=== PATIENT | female | born 1935 | race Caucasian/White ===

== ENCOUNTER 2017-03-29 15:05 | Emergency (ER) | payer MEDICARE, OTHER ==
--- NOTE | 2017-03-29 16:05 | ER Document Report ---
ED Fall - General Chief Complaint: Fall Injury Stated Complaint: FALL/BACK PAIN Time Seen by Provider: 03/29/17 15:52 Mode of Arrival: Wheelchair Information source: Patient TRAVEL OUTSIDE OF THE [place] IN LAST 30 DAYS: No - HPI Patient complains to provider of: fall Occurred: Other - pt fell 2 days ago and was seen at [place] [facility] for rib fx' s and stable vertebral compression fractures. Is here to get the name of a" back doctor" who will operate on her back - Related data Allergies/Adverse Reactions: No Known Allergies Allergy (Unverified 03/29/17 15:08) Past Medical History - Social History Smoking Status: Never Smoker Cigarette use (# per day): No Chew tobacco use (# tins/day): No Smoking Education Provided: No Family History: Reviewed & Not Pertinent - Past Medical History Cardiac Medical History: Reports: Hx Coronary Artery Disease, Hx Hypercholesterolemia, Hx Peripheral Vascular Disease Denies: Hx Heart Attack, Hx Hypertension Pulmonary Medical History: Denies: Hx Asthma, Hx Bronchitis, Hx COPD, Hx Pneumonia, Hx Tuberculosis Neurological Medical History: Denies: Hx Cerebrovascular Accident, Hx Seizures Renal/ Medical History: Reports: Hx Kidney Stones. Denies: Hx Peritoneal Dialysis Musculoskeltal Medical History: Denies Hx Arthritis Psychiatric Medical History: Reports: Hx Depression Past Surgical History: Reports: Hx Appendectomy, Hx Cardiac Catheterization - stents, Hx Cardiac Surgery - stent, Hx Cholecystectomy, Hx Coronary Stent, Hx Herniorrhaphy - Umbilical hernia, Hx Hysterectomy, Hx Oral Surgery, Hx Orthopedic Surgery - L1 vertebroplasty, Hx Umbilical Hernia, Hx Vascular Surgery - Aortobiiliac iliac stent within an abdominal aortic aneurysm - Immunizations Immunizations up to date: Yes Hx Diphtheria, Pertussis, Tetanus Vaccination: Yes Hx Pneumococcal Vaccination: 03/16/03 Review of Systems - Review of Systems Constitutional: No symptoms reported EENT: No symptoms reported Cardiovascular: No symptoms reported Respiratory: No symptoms reported Gastrointestinal: No symptoms reported Musculoskeletal: See HPI, Back pain Physical Exam - Vital signs Vitals: Temp Pulse Resp BP Pulse Ox 97.9 F 100 18 147/61 H 98 03/29/17 15:11 03/29/17 15:11 03/29/17 15:11 03/29/17 15:11 03/29/17 15:11 - General General appearance: Appears well In distress: None - Respiratory Respiratory status: No respiratory distress Breath sounds: Normal - Cardiovascular Rhythm: Regular Heart sounds: Normal auscultation - Back Back: Tender - tenderness to lumbar spine diffusely - Extremities Notes: min TTP of R lateral ribs 4-6 Course - Vital Signs Vital signs: Temp Pulse Resp BP Pulse Ox 97.9 F 100 18 147/61 H 98 03/29/17 15:11 03/29/17 15:11 03/29/17 15:11 03/29/17 15:11 03/29/17 15:11 Discharge - Discharge Clinical Impression: Vertebral compression fracture Qualifiers: Encounter type: initial encounter Qualified Code(s): M48.50XA - Collapsed vertebra, not elsewhere classified, site unspecified, initial encounter for fracture Condition: Stable Disposition: HOME, SELF-CARE Additional Instructions: rest, take meds as prescribed, return if worse Prescriptions: Etodolac [Lodine] 200 mg PO BID #14 capsule Referrals: ANILA MONTOYA DO [ACTIVE STAFF] - Follow up as needed
[2017-03-29 16:16] VITALS: BP 137/62
== END 2017-03-29 16:15 | disposition home or self-care (01) ==
LOC: ER 15:05
DX: M48.50XA Collapsed vertebra, not elsewhere classified, site unspecified, initial encounter for fracture (principal); M54.9 Dorsalgia, unspecified; W19.XXXA Unspecified fall, initial encounter; I25.10 Atherosclerotic heart disease of native coronary artery without angina pectoris; E78.00 Pure hypercholesterolemia, unspecified; Z87.442 Personal history of urinary calculi; Z90.49 Acquired absence of other specified parts of digestive tract
CPT/HCPCS: 99283

== ENCOUNTER 2017-04-04 09:58 | Emergency (ER) | payer MEDICARE, OTHER ==
[2017-04-04 10:05] VITALS: BP 150/65
--- NOTE | 2017-04-04 10:54 | ER Document Report ---
HPI - HPI Patient complains to provider of: low back pain Onset: Other - months Onset/Duration: Persistent Pain Level: 5 Context: 81 yo female with chronic low back pain seeking something for pain, seen 03-25 and 03-27 at [facility] and the percocet helped. Knows that she has compression fx and had 3 rib fx after fall 3 months ago. No rn mds coordinator "fired" dr. spivey. No new symptoms. No radiculopathy. Paperwork from [facility]: stable non displaced T11 wedge compression fx, stable non displaced L4 wedge compression fx , multiple right rib fx (3-6) non displaced. Associated Symptoms: None Exacerbated by: Denies Relieved by: Other - percocet - ROS ROS below otherwise negative: Yes Systems Reviewed and Negative: Yes All other systems reviewed and negative - CONSTITUTIONAL Constitutional: DENIES: Fever, Chills - REPRODUCTIVE Reproductive: DENIES: : Past Medical History - General Information source: Patient - Social History Smoking Status: Never Smoker Chew tobacco use (# tins/day): No Frequency of alcohol use: None Drug Abuse: None Lives with: Alone Family History: Reviewed & Not Pertinent Patient has suicidal ideation: No Patient has homicidal ideation: No - Past Medical History Cardiac Medical History: Reports: Hx Coronary Artery Disease, Hx Hypercholesterolemia, Hx Peripheral Vascular Disease Renal/ Medical History: Reports: Hx Kidney Stones. Denies: Hx Peritoneal Dialysis Psychiatric Medical History: Reports: Hx Depression Past Surgical History: Reports: Hx Appendectomy, Hx Cardiac Catheterization - stents, Hx Cardiac Surgery - stent, Hx Cholecystectomy, Hx Coronary Stent, Hx Herniorrhaphy - Umbilical hernia, Hx Hysterectomy, Hx Oral Surgery, Hx Orthopedic Surgery - L1 vertebroplasty, Hx Umbilical Hernia, Hx Vascular Surgery - Aortobiiliac iliac stent within an abdominal aortic aneurysm - Immunizations Immunizations up to date: Yes Hx Diphtheria, Pertussis, Tetanus Vaccination: Yes Hx Pneumococcal Vaccination: 03/16/03 Vertical Provider Document - CONSTITUTIONAL Agree With Documented VS: Yes Exam Limitations: No Limitations General Appearance: No Apparent Distress - INFECTION CONTROL TRAVEL OUTSIDE OF THE [place] IN LAST 30 DAYS: No - HEENT HEENT: Normocephalic - NECK Neck: Supple - RESPIRATORY Respiratory: Breath Sounds Normal, No Respiratory Distress O2 Sat by Pulse Oximetry: 98 - CARDIOVASCULAR Cardiovascular: Regular Rate, Regular Rhythm - GI/ABDOMEN Gastrointestinal: Abdomen Soft, Abdomen Non-Tender - BACK Back: Normal Inspection - MUSCULOSKELETAL/EXTREMETIES Musculoskeletal/Extremeties: MAEW, FROM, Non-Tender - NEURO Level of Consciousness: Awake, Alert, Appropriate Motor/Sensory: No Motor Deficit, No Sensory Deficit - DERM Integumentary: Warm, Dry, No Rash Course - Vital Signs Vital signs: Temp Pulse Resp BP Pulse Ox 97.5 F 106 H 14 150/65 H 98 04/04/17 10:04 04/04/17 10:04 04/04/17 10:04 04/04/17 10:04 04/04/17 10:04 Discharge - Discharge Clinical Impression: Chronic low back pain Qualifiers: Back pain laterality: midline Sciatica presence: without sciatica Qualified Code(s): M54.5 - Low back pain Condition: Good Disposition: HOME, SELF-CARE Instructions: Low Back Pain ([facility]), Oral Narcotic Medication ([facility]), Warm Packs ( [facility]) Additional Instructions: call for appt back surgeon listed below Dr. Britton [facility] [address] [place] [address] [phone] pain management doctor Rola pain management to er any worsening of your symptoms Prescriptions: Oxycodone HCl/Acetaminophen [Percocet 5-325 mg Tablet] 11 tab PO ASDIR PRN #15 tablet PRN Reason: Referrals: JENISE FLETCHER MD [ACTIVE STAFF] - 04/06/17 BRITTON GIANES MD [NO LOCAL MD] - 04/06/17
== END 2017-04-04 11:20 | disposition home or self-care (01) ==
LOC: ER 09:58
DX: M54.5 Low back pain (principal); Z79.899 Other long term (current) drug therapy
CPT/HCPCS: 99283

== ENCOUNTER 2017-04-11 10:00 | Emergency (ER) | payer MEDICARE, OTHER ==
--- NOTE | 2017-04-11 10:25 | ER Document Report ---
ED Medical Screen (RME) - General Chief Complaint: Back Pain Stated Complaint: BACK PAIN Time Seen by Provider: 04/11/17 10:19 Mode of Arrival: Ambulatory Information source: Patient Notes: 81-year-old female presents with complaints of right breast pain flank pain patient noted to have extensive falls with fractures from previous notes I have greeted and performed a rapid initial assessment of this patient. A comprehensive ED assessment and evaluation of the patient, analysis of test results and completion of the medical decision making process will be conducted by additional ED providers. PHYSICAL EXAMINATION: GENERAL: Well-appearing, well-nourished and in no acute distress. HEAD: Atraumatic, normocephalic. EYES: Pupils equal round extraocular movements intact, conjunctiva are normal. ENT: Nares patent NECK: Normal range of motion LUNGS: No respiratory distress Musculoskeletal: Normal range of motion NEUROLOGICAL: Normal speech, normal gait. PSYCH: Normal mood, normal affect. SKIN: Warm, Dry, normal turgor, no rashes or lesions noted. TRAVEL OUTSIDE OF THE [place] IN LAST 30 DAYS: No - Related Data Allergies/Adverse Reactions: No Known Allergies Allergy (Verified 04/11/17 10:01) Past Medical History - Past Medical History Cardiac Medical History: Reports: Hx Coronary Artery Disease, Hx Hypercholesterolemia, Hx Peripheral Vascular Disease Denies: Hx Heart Attack, Hx Hypertension Pulmonary Medical History: Denies: Hx Asthma, Hx Bronchitis, Hx COPD, Hx Pneumonia, Hx Tuberculosis Neurological Medical History: Denies: Hx Cerebrovascular Accident, Hx Seizures Renal/ Medical History: Reports: Hx Kidney Stones. Denies: Hx Peritoneal Dialysis Musculoskeltal Medical History: Denies Hx Arthritis Psychiatric Medical History: Reports: Hx Depression Past Surgical History: Reports: Hx Appendectomy, Hx Cardiac Catheterization - stents, Hx Cardiac Surgery - stent, Hx Cholecystectomy, Hx Coronary Stent, Hx Herniorrhaphy - Umbilical hernia, Hx Hysterectomy, Hx Oral Surgery, Hx Orthopedic Surgery - L1 vertebroplasty, Hx Umbilical Hernia, Hx Vascular Surgery - Aortobiiliac iliac stent within an abdominal aortic aneurysm - Immunizations Immunizations up to date: Yes Hx Diphtheria, Pertussis, Tetanus Vaccination: Yes
[2017-04-11 10:49] VITALS: BP 160/74
[2017-04-11] MEDS ORDERED: LIDOCAINE 5% (700 MG) TRANSDERMAL ADH..PATCH TP ONE (10:55)
--- NOTE | 2017-04-11 10:55 | ER Document Report ---
HPI - HPI Pain Level: 5 Notes: Patient is an 81-year-old female with a history of chronic back pain 3 years with a wedge compression fracture, right rib fractures 3 months presents to the ED complaining of continued pain and wants to see yet another specialist to have surgery on her back. Patient states that she contacted all the other referrals that she was given at [facility], local orthopedics, and a neurosurgeon who stated they will not perform surgery on her back. Patient states that she fired her primary care provider Dr. Rendon due to him not telling her that she had back issues and not referring her to a specialist for surgery. Patient was receiving numerous amounts of narcotics since the start of her back pain. Patient states that she needs more pain medications and another referral to get back surgery performed. She has no other concerns or complaints. She denies any injections or procedures to her lower back. She denies any drug allergies. Denies any IV drug use. Denies any headache, fever, head injury, neck pain, URI, sore throat, chest pain, palpitations, syncope, cough, shortness of breath , wheeze, dyspnea, abdominal pain, nausea/vomiting/diarrhea, urinary retention, dysuria, hematuria, loss of control of bowel or bladder, numbness/tingling, saddle anesthesia, muscle paralysis/weakness, or rash. - ROS Systems Reviewed and Negative: Yes All other systems reviewed and negative - REPRODUCTIVE Reproductive: DENIES: : Past Medical History - General Information source: Patient - Social History Smoking Status: Never Smoker Family History: Reviewed & Not Pertinent - Past Medical History Cardiac Medical History: Reports: Hx Coronary Artery Disease, Hx Hypercholesterolemia, Hx Peripheral Vascular Disease Denies: Hx Heart Attack, Hx Hypertension Pulmonary Medical History: Denies: Hx Asthma, Hx Bronchitis, Hx COPD, Hx Pneumonia, Hx Tuberculosis Neurological Medical History: Denies: Hx Cerebrovascular Accident, Hx Seizures Renal/ Medical History: Reports: Hx Kidney Stones. Denies: Hx Peritoneal Dialysis Musculoskeltal Medical History: Denies Hx Arthritis Psychiatric Medical History: Reports: Hx Depression Past Surgical History: Reports: Hx Appendectomy, Hx Cardiac Catheterization - stents, Hx Cardiac Surgery - stent, Hx Cholecystectomy, Hx Coronary Stent, Hx Herniorrhaphy - Umbilical hernia, Hx Hysterectomy, Hx Oral Surgery, Hx Orthopedic Surgery - L1 vertebroplasty, Hx Umbilical Hernia, Hx Vascular Surgery - Aortobiiliac iliac stent within an abdominal aortic aneurysm - Immunizations Immunizations up to date: Yes Hx Diphtheria, Pertussis, Tetanus Vaccination: Yes Hx Pneumococcal Vaccination: 03/16/03 Vertical Provider Document - CONSTITUTIONAL Agree With Documented VS: Yes Notes: PHYSICAL EXAMINATION: GENERAL: Well-appearing, well-nourished and in no acute distress. Chest: + hypersensitivity to palp of the rt lateral ribs. No ecchymosis, deformity, step-off, erythema, or rash. LUNGS: Breath sounds clear to auscultation bilaterally and equal. No wheezes rales or rhonchi. HEART: Regular rate and rhythm without murmurs, rubs, gallops. ABDOMEN: Soft, nontender, nondistended abdomen. No guarding, no rebound. No masses appreciated. Normal bowel sounds present. No CVA tenderness bilaterally. No pulsatile mass Musculoskeletal: LE's b/l: FROM to passive/active. Strength 5+/5. No deficits noted. No bony tenderness of extremities. Back: FROM to passive/active. Strength 5+/5. No vertebral point tenderness, stepoffs, or deformities. No other bony tenderness, erythema, swelling, or ecchymosis. SLR negative b/l. + hypersensitivity to light touch of the left L- paraspinal mm. Again, no bony tenderness and super hypersensitive to the lightest touch of her back. pt can then lay back on the table quickly in no apparent discomfort. Extremities: No cyanosis, clubbing, or edema b/l. Peripheral pulses 2+. Capillary refill less than 2 seconds. NEUROLOGICAL: Normal speech, normal gait. Normal sensory, motor exams. Reflexes 2+ b/l. PSYCH: Normal mood, normal affect. SKIN: Warm, Dry, normal turgor, no rashes or lesions noted. - INFECTION CONTROL TRAVEL OUTSIDE OF THE [place] IN LAST 30 DAYS: No - RESPIRATORY O2 Sat by Pulse Oximetry: 99 Course - Re-evaluation Re-evalutation: 04/11/17 10:50 Patient is an afebrile, well-hydrated, 81-year-old female who presents to the ED with chronic back and rib pain. Vitals are stable. PE is otherwise unremarkable for any focal neurological deficits. No labs or imaging warranted at this time based on H&P. I have a very strong suspicion that she is having a hypersensitivity side effect of chronic narcotic use. I strongly advise against any narcotics at this time and that the next provider that sees her looks at her NCCSRS as well as this note and considers the risk/benefit. I believe that patient will benefit most from interventional pain management as well as the psych parameters of true pain. Patient has been told by numerous specialists but they will not perform surgery and that her condition does not warrant surgery. Patient has no bony tenderness in her back and is able to move without any difficulties. Low suspicion for any meningitis, fracture, expanding/ruptured AAA, cauda equina syndrome, epidural mass lesion/abscess, herniated disc causing severe spinal stenosis, or other systemic infection at this time. Patient is aware that her condition can change from initial presentation and that she needs monitor symptoms closely for any acute changes. She will be treated today with a Lidoderm patch, Toradol, Solu-Medrol, and sent home with a steroid taper as well as a prescription for Lidoderm patches. A FCE (functional capacity exam) should also be considered to further delineate true pain from psych involvement but needs to be ordered by Physiatry/PCM, etc. Conservative measures otherwise for symptoms. Recheck with your PCM/ establish over the next week. Consider consult with physiatry/orthopedics/ therapy. return to the ED with any worsening/concerning symptoms otherwise as reviewed discharge. Patient is in agreement. Information for Physiatry given to patient. - Vital Signs Vital signs: Temp Pulse Resp BP Pulse Ox 97.6 F 92 20 211/74 H 99 04/11/17 10:05 04/11/17 10:05 04/11/17 10:05 04/11/17 10:05 04/11/17 10:05 Discharge - Discharge Clinical Impression: Rib pain on right side Chronic back pain Qualifiers: Back pain location: low back pain Back pain laterality: right Sciatica presence : without sciatica Qualified Code(s): M54.5 - Low back pain; G89.29 - Other chronic pain; G89.29 - Other chronic pain Condition: Stable Disposition: HOME, SELF-CARE Instructions: Low Back Pain ([facility]) Additional Instructions: You should stay away from narcotic medications (including but not limited to-- vicodin/hydrocodone, oxycodone/percocet, dilaudid/hydromorphone, etc) as this could be worsening your overall health. Consider having a Functional Capacity Exam performed (speak with a specialist more about this) Rest, Ice Tylenol/ibuprofen as needed Light stretches daily Strength exercises as able Moist heat and massage may help F/u with your PCP/establish with PCM in 1 week for a recheck Consider consult(s) with Physiatry/Orthopedics/physical therapy for ongoing/ worsening symptoms Return to the ED with any worsening symptoms and/or development of fever, headache, chest pain, palpitations, syncope, shortness of breath, trouble breathing, abdominal pain, n/v/d, blood in stool/urine, loss of control of bowel /bladder, urinary retention, muscle weakness/paralysis, saddle anesthesia, numbness/tingling, or other worsening symptoms that are concerning to you. Prescriptions: Lidocaine [Lidoderm] 1 each TP DAILY #30 adh..patch Prednisone [Deltasone 10 mg Tablet] 10 mg PO ASDIR PRN #21 tablet PRN Reason: Forms: Elevated Blood Pressure Referrals: ANA LILIA NUNEZ MD [Primary Care Provider] - Follow up in 1 week [facility] [Provider Group] - Follow up as needed [facility] [Provider Group] - Follow up as needed EVANGELINA COLÓN MD [NO LOCAL MD] - Follow up in 1 week
[2017-04-11] MEDS ORDERED: KETOROLAC TROMETHAMINE INJ/PF 30 MG/1 ML SDV IM ONE (10:56)
[2017-04-11] MEDS ORDERED: METHYLPREDNISOLONE INJ 125 MG/2 ML SDV IM ONE (10:56)
== END 2017-04-11 11:20 | disposition home or self-care (01) ==
LOC: ER 10:00
DX: G89.29 Other chronic pain (principal); R07.81 Pleurodynia; M54.5 Low back pain; I25.10 Atherosclerotic heart disease of native coronary artery without angina pectoris
CPT/HCPCS: 99283; 96372; J2930; J1885

== ENCOUNTER 2017-04-24 15:53 | Emergency (ER) | payer MEDICARE, OTHER ==
[2017-04-24 16:03] VITALS: BP 182/63
--- NOTE | 2017-04-24 16:24 | ER Document Report ---
HPI - HPI Patient complains to provider of: low back pain Onset: Other - over 3 months Onset/Duration: Persistent - chronic Quality of pain: Achy, Burning Pain Level: 5 Context: 81 yo female with multiple visits to ER and other providers for chronic lower seth. thoracic back pain. No rash, no sob. No abd pain. No chest pain. Has been told in ER no opiate pain medication. No fever. ] Associated Symptoms: None Exacerbated by: Movement Relieved by: Denies - ROS ROS below otherwise negative: Yes Systems Reviewed and Negative: Yes All other systems reviewed and negative - REPRODUCTIVE Reproductive: DENIES: : Past Medical History - General Information source: Patient - Social History Smoking Status: Never Smoker Frequency of alcohol use: None Drug Abuse: None Lives with: Alone Family History: Reviewed & Not Pertinent - Past Medical History Cardiac Medical History: Reports: Hx Coronary Artery Disease, Hx Hypercholesterolemia, Hx Peripheral Vascular Disease Renal/ Medical History: Reports: Hx Kidney Stones Musculoskeltal Medical History: Reports Hx Arthritis, Reports Other - compression fx Psychiatric Medical History: Reports: Hx Depression Past Surgical History: Reports: Hx Appendectomy, Hx Cardiac Catheterization - stents, Hx Cardiac Surgery - stent, Hx Cholecystectomy, Hx Coronary Stent, Hx Herniorrhaphy - Umbilical hernia, Hx Hysterectomy, Hx Oral Surgery, Hx Orthopedic Surgery - L1 vertebroplasty, Hx Umbilical Hernia, Hx Vascular Surgery - Aortobiiliac iliac stent within an abdominal aortic aneurysm - Immunizations Immunizations up to date: Yes Hx Diphtheria, Pertussis, Tetanus Vaccination: Yes Hx Pneumococcal Vaccination: 03/16/03 Vertical Provider Document - CONSTITUTIONAL Agree With Documented VS: Yes Exam Limitations: No Limitations General Appearance: No Apparent Distress - INFECTION CONTROL TRAVEL OUTSIDE OF THE [place] IN LAST 30 DAYS: No - HEENT HEENT: Normocephalic - NECK Neck: Supple - RESPIRATORY Respiratory: Breath Sounds Normal, No Respiratory Distress O2 Sat by Pulse Oximetry: 98 - CARDIOVASCULAR Cardiovascular: Regular Rate, Regular Rhythm - GI/ABDOMEN Gastrointestinal: Abdomen Soft, Abdomen Non-Tender - BACK Back: Normal Inspection Notes: tender bilateral lower thoracic back paraspinal muscles - MUSCULOSKELETAL/EXTREMETIES Musculoskeletal/Extremeties: MAEW, Tender - see above - NEURO Level of Consciousness: Awake, Alert - impatient Motor/Sensory: No Motor Deficit, No Sensory Deficit - DERM Integumentary: Warm, Dry, No Rash Course - Re-evaluation Re-evalutation: 04/24/17 17:12 pt is refusing a urine sample - Vital Signs Vital signs: Temp Pulse Resp BP Pulse Ox 97.7 F 95 18 182/63 H 98 04/24/17 16:01 04/24/17 16:01 04/24/17 16:01 04/24/17 16:01 04/24/17 16:01 Discharge - Discharge Clinical Impression: chronic bilateral low thoracic back pain Condition: Good Disposition: HOME, SELF-CARE Instructions: Acetaminophen, Chronic Back Pain ([facility]), Low Back Pain ([facility]), Ultram ([facility]), Warm Packs ([facility]) Additional Instructions: warm compress see your doctor for follow up to er if worse we will not prescribe Narcotic pain medication or any more Ultram for you in the ER for this chronic back pain Prescriptions: Tramadol HCl [Ultram 50 mg Tablet] 50 mg PO ASDIR PRN #10 tablet PRN Reason:
[2017-04-24 17:37] LABS: AMORPHOUS SEDIMENT,URINE TRACE /HPF; APPEARANCE,URINE CLEAR; BILIRUBIN,URINE NEGATIVE (NEGATIVE); COLOR,URINE YELLOW; GLUCOSE, URINE NEGATIVE (NEGATIVE); KETONES,URINE NEGATIVE (NEGATIVE); LEUKOCYTE ESTERASE,URINE NEGATIVE (NEGATIVE); NITRITE,URINE NEGATIVE (NEGATIVE); PROTEIN,URINE NEGATIVE (NEGATIVE); URINE SPECIFIC GRAVITY 1.023; UROBILINOGEN,URINE NEGATIVE mg/dL (<2.0)
== END 2017-04-24 17:15 | disposition home or self-care (01) ==
LOC: ER 15:53
DX: G89.29 Other chronic pain (principal); M54.5 Low back pain; M54.6 Pain in thoracic spine; I25.10 Atherosclerotic heart disease of native coronary artery without angina pectoris; Z95.5 Presence of coronary angioplasty implant and graft
CPT/HCPCS: 81001; 87086; 99283

== ENCOUNTER 2017-05-01 09:49 | Emergency (ER) | payer MEDICARE, OTHER ==
[2017-05-01 09:58] VITALS: BP 174/65
--- NOTE | 2017-05-01 10:44 | ER Document Report ---
HPI - HPI Patient complains to provider of: Back pain Onset: Last week Onset/Duration: Gradual Quality of pain: Achy Severity: None Pain Level: Denies Context: 81-year-old female with a history of chronic back pain who has a back surgeon and states she is going to have surgery later this month ran out of her pain medicine and needs a prescription for pain medicine. She denies fever. She denies motor weakness to the lower extremities. She denies urinary retention or urinary incontinence. She denies any numbness to the inner thighs. Associated Symptoms: denies: Weakness Exacerbated by: Movement Relieved by: Remaining still Similar symptoms previously: Yes Recently seen / treated by doctor: Yes Notes: Review of systems: Constitutional: Denies fever, chills. EENT: Denies ear pain, sinus tenderness, throat pain, throat swelling. Cardiovascular: Denies chest pain, palpitations, dyspnea or edema. Respiratory: Denies wheezing, cough, hemoptysis. Abdomen: Denies abdominal pain, nausea, vomiting, diarrhea. Denies BRBPR or melena. Genitourinary: Denies dysuria, pyuria, hematuria, flank pain. Musculoskeletal: See H&P Neurologic: Denies headache, photophobia, neck stiffness, weakness. Denies loss of bowel or bladder function. Denies saddle anesthesia. Skin: Denies rash, lesions. - REPRODUCTIVE Reproductive: DENIES: : Past Medical History - General Information source: Patient - Social History Smoking Status: Never Smoker Cigarette use (# per day): No Chew tobacco use (# tins/day): No Frequency of alcohol use: None Drug Abuse: None Lives with: Alone Family History: Reviewed & Not Pertinent Patient has suicidal ideation: No Patient has homicidal ideation: No - Past Medical History Cardiac Medical History: Reports: Hx Coronary Artery Disease, Hx Hypercholesterolemia, Hx Peripheral Vascular Disease Denies: Hx Heart Attack, Hx Hypertension Pulmonary Medical History: Denies: Hx Asthma, Hx Bronchitis, Hx COPD, Hx Pneumonia, Hx Tuberculosis Neurological Medical History: Denies: Hx Cerebrovascular Accident, Hx Seizures Renal/ Medical History: Reports: Hx Kidney Stones. Denies: Hx Peritoneal Dialysis Musculoskeltal Medical History: Reports Hx Arthritis Psychiatric Medical History: Reports: Hx Depression Past Surgical History: Reports: Hx Appendectomy, Hx Cardiac Catheterization - stents, Hx Cardiac Surgery - stent, Hx Cholecystectomy, Hx Coronary Stent, Hx Herniorrhaphy - Umbilical hernia, Hx Hysterectomy, Hx Oral Surgery, Hx Orthopedic Surgery - L1 vertebroplasty, Hx Umbilical Hernia, Hx Vascular Surgery - Aortobiiliac iliac stent within an abdominal aortic aneurysm - Immunizations Immunizations up to date: Yes Hx Diphtheria, Pertussis, Tetanus Vaccination: Yes Hx Pneumococcal Vaccination: 03/16/03 Vertical Provider Document - CONSTITUTIONAL Agree With Documented VS: Yes Notes: Physical exam: GENERAL: A 1-year-old female, alert and oriented 3, no acute distress HEAD: Atraumatic, normocephalic. EYES: Pupils equal round and reactive to light, extraocular movements intact, sclera anicteric, conjunctiva are normal. ENT: Moist mucous membranes. NECK: Normal range of motion, supple without obvious mass LUNGS: Breath sounds clear to auscultation bilaterally and equal. No wheezes rales or rhonchi. HEART: Regular rate and rhythm without murmurs, rubs or gallops. ABDOMEN: Soft, normoactive bowel sounds. No tenderness to palpation. No guarding, no rebound. No masses appreciated. EXTREMITIES: Normal range of motion, no pitting or edema. No clubbing or cyanosis. NEUROLOGICAL: Cranial nerves II through XII grossly intact. Normal speech, moving all extremities. PSYCH: Normal mood, normal affect. SKIN: Warm, Dry, normal turgor, no rashes or lesions noted. - INFECTION CONTROL TRAVEL OUTSIDE OF THE [place] IN LAST 30 DAYS: No - RESPIRATORY O2 Sat by Pulse Oximetry: 98 Course - Vital Signs Vital signs: Temp Pulse Resp BP Pulse Ox 97.6 F 94 18 174/65 H 98 05/01/17 09:57 05/01/17 09:57 05/01/17 09:57 05/01/17 09:57 05/01/17 09:57 Discharge - Discharge Clinical Impression: Back pain Condition: Stable Disposition: HOME, SELF-CARE Additional Instructions: Thank you for choosing [facility] for your care. The examination and treatment you have received in the Emergency Department today has been rendered on an emergency basis only and is not intended to be a substitute for complete medical care. You should contact your doctor as it is important that she/he examine you for any new or remaining problems. If given a copy of any lab tests or radiology reports, please bring them with you when you see your physician. If your problem worsens or new symptoms appear and you are unable to arrange prompt follow-up care, return to the Emergency Department. Specific signs to look out for: Worsening back pain, fever (temperature greater than 100.4), any concerns or getting worse Any other instructions: Important that you follow-up with the primary care doctor. Also follow-up as planned with your back surgeon. Primary Care Doctor's affiliated with [facility]: If you do not have a primary care doctor or you are unable to get an appointment during that time, you can try one of the doctor's below. These are internal medicine doctor's that have admitting priveledges to the hospital ( they will see you both in the office as well as in this hospital if you are ever hospitalized here). Dr. Hasmukh [facility] [address], [place] [address] [phone] Dr Mcmahon Address: [address] [place] [address] [place] [address] Dr Dean Address: [address] [place] [address] [place] [address] Prescriptions: Gabapentin 100 mg PO QHS PRN #20 capsule PRN Reason: Tramadol HCl 50 mg PO Q6HP PRN #20 tablet PRN Reason: Meloxicam 15 mg PO ONCEP PRN #20 tablet PRN Reason:
== END 2017-05-01 10:54 | disposition home or self-care (01) ==
LOC: ER 09:49
DX: M54.9 Dorsalgia, unspecified (principal); G89.29 Other chronic pain
CPT/HCPCS: 99281

== ENCOUNTER → 2017-05-09 | Outpatient (CLI) | payer MEDICARE, OTHER ==
--- NOTE | 2017-05-10 15:51 | RADIOLOGY REPORT (SQ) ---
EXAM DESCRIPTION: MRI LUMBAR SPINE WITHOUT COMPLETED DATE/TIME: 05/09/2017 12:34 pm REASON FOR STUDY: COMPRESSION FRACTURE OF THE LUMBAR SPINE M48.56XA COLLAPSED VERTEBRA, NEC, LUMBAR REGION, INIT COMPARISON: 01/14/2013 TECHNIQUE: Sagittal and Axial imaging includes T1, T2, STIR and gradient echo sequences. Coronal T2/ HASTE imaging. LIMITATIONS: None. FINDINGS: VISUALIZED UPPER ABDOMEN: Limited evaluation. No acute or suspicious findings suggested. SEGMENTATION: No transitional anatomy. The lowest well-developed disc space is labeled L5-S1. ALIGNMENT: Anatomic. VERTEBRAE: Treated L1 compression fracture. There is a T11 compression fracture approximately 30% lo ss of height with minimal retropulsion. Chronic. No edema to suggest an acute component. There is an L4 compression fracture approximately 20% loss of height and no retropulsion. Normal marrow signa l indicating chronic fracture. There are no acute fractures. BONE MARROW: Normal. No marrow replacement or reactive changes. DISC SIGNAL: Normal. No significant abnormal signal or loss of height. POSTERIOR ELEMENTS: Generally intact. No pars defect evident. HARDWARE: None in the spine. CORD AND CONUS: Normal in size and signal intensity. Conus at the appropriate level. SOFT TISSUES: No aortic aneurysm seen. No bulky retroperitoneal adenopathy or mass. No paraspinal mas s or fluid. L1-L2: No significant spinal stenosis or exit foraminal stenosis. L2-L3: No significant spinal stenosis or exit foraminal stenosis. L3-L4: Mild disc bulge. Mild facet hypertrophy. Mild narrowing of the exit foramina. L4-L5: No significant spinal stenosis or exit foraminal stenosis. L5-S1: Small central protrusion. Facet hypertrophy. No spinal stenosis or exit foraminal stenosis. LOWER THORACIC: Incompletely imaged. No stenosis seen. SACRUM: Visualized upper sacrum intact. OTHER: No other significant findings. IMPRESSION: Interval treatment of and L1 compression fracture. Interval development of compression fractures at T11 and L4, which are chronic at this point. No mar row signal to suggest an acute process. L3-4 with mild narrowing of the exit foramina. TECHNICAL DOCUMENTATION: JOB ID: [id number] [employer]- All Rights Reserved Reading location - IP/workstation name: [email or web address]
== END ==
LOC: RAD 09:48
PROVIDERS: ATTEND Orthopaedic Surgery
DX: M48.56XA Collapsed vertebra, not elsewhere classified, lumbar region, initial encounter for fracture (principal)
CPT/HCPCS: 72148

== ENCOUNTER 2017-05-11 10:41 | Emergency (ER) | payer MEDICARE, OTHER ==
[2017-05-11 10:46] VITALS: BP 141/57
--- NOTE | 2017-05-11 11:22 | ER Document Report ---
HPI - HPI Patient complains to provider of: chronic back pain Onset/Duration: Persistent Pain Level: 5 Context: 81 yo female returns again for refill of tramadol. Works for her chronic back pain. No change to her pain. She has recently seen new MD, MR shows degenerative changes 05/09/17, done at [facility]. NO fever. No chest pain, sob, abd. pain, radiculopathy or saddle anesthesia. Associated Symptoms: None Exacerbated by: Movement Relieved by: Denies - ROS ROS below otherwise negative: Yes Systems Reviewed and Negative: Yes All other systems reviewed and negative - REPRODUCTIVE Reproductive: DENIES: : Past Medical History - General Information source: Patient - n - Social History Smoking Status: Never Smoker Frequency of alcohol use: None Drug Abuse: None Lives with: Alone Family History: Reviewed & Not Pertinent - Past Medical History Cardiac Medical History: Reports: Hx Coronary Artery Disease, Hx Hypercholesterolemia, Hx Peripheral Vascular Disease Renal/ Medical History: Reports: Hx Kidney Stones. Denies: Hx Peritoneal Dialysis Musculoskeltal Medical History: Reports Hx Arthritis Psychiatric Medical History: Reports: Hx Depression Past Surgical History: Reports: Hx Appendectomy, Hx Cardiac Catheterization - stents, Hx Cardiac Surgery - stent, Hx Cholecystectomy, Hx Coronary Stent, Hx Herniorrhaphy - Umbilical hernia, Hx Hysterectomy, Hx Oral Surgery, Hx Orthopedic Surgery - L1 vertebroplasty, Hx Umbilical Hernia, Hx Vascular Surgery - Aortobiiliac iliac stent within an abdominal aortic aneurysm - Immunizations Immunizations up to date: Yes Hx Diphtheria, Pertussis, Tetanus Vaccination: Yes Hx Pneumococcal Vaccination: 03/16/03 Vertical Provider Document - CONSTITUTIONAL Agree With Documented VS: Yes Exam Limitations: No Limitations General Appearance: No Apparent Distress - INFECTION CONTROL TRAVEL OUTSIDE OF THE U.[place]. IN LAST 30 DAYS: No - HEENT HEENT: Normocephalic - NECK Neck: Supple - RESPIRATORY Respiratory: Breath Sounds Normal, No Respiratory Distress O2 Sat by Pulse Oximetry: 99 - CARDIOVASCULAR Cardiovascular: Regular Rate, Regular Rhythm - GI/ABDOMEN Gastrointestinal: Abdomen Soft, Abdomen Non-Tender - BACK Back: Normal Inspection - MUSCULOSKELETAL/EXTREMETIES Musculoskeletal/Extremeties: MAEW, FROM - NEURO Level of Consciousness: Awake, Alert, Appropriate Motor/Sensory: No Motor Deficit, No Sensory Deficit Deep Tendon Reflexes: 2+ - DERM Integumentary: Warm, Dry, No Rash Course - Vital Signs Vital signs: Temp Pulse Resp BP Pulse Ox 97.6 F 90 14 141/57 H 99 05/11/17 10:45 05/11/17 10:45 05/11/17 10:45 05/11/17 10:45 05/11/17 10:45 Discharge - Discharge Clinical Impression: Chronic back pain Qualifiers: Back pain location: low back pain Back pain laterality: unspecified Sciatica presence: without sciatica Qualified Code(s): M54.5 - Low back pain Condition: Good Disposition: HOME, SELF-CARE Instructions: Acetaminophen, Chronic Back Pain ([facility]), Ultram ([facility]) Additional Instructions: see pain managent doctor Rola pain management to er any new or worsening symptoms do not return to ER for pain medication refills Prescriptions: Tramadol HCl 50 mg PO Q6HP PRN #10 tablet PRN Reason: Referrals: JENISE FLETCHER MD [ACTIVE STAFF] - Follow up tomorrow
== END 2017-05-11 11:30 | disposition home or self-care (01) ==
LOC: ER 10:41
DX: G89.29 Other chronic pain (principal); M54.5 Low back pain; I25.10 Atherosclerotic heart disease of native coronary artery without angina pectoris; Z95.5 Presence of coronary angioplasty implant and graft
CPT/HCPCS: 99283

== ENCOUNTER 2017-08-05 17:36 | Inpatient (IN) | payer MEDICARE, OTHER ==
[2017-08-05 18:02] LABS: ABSOLUTE BASOPHILS # (AUTO) 0.1 10^3/uL (0.0-0.2); ABSOLUTE LYMPHOCYTES (AUTO) 0.7 10^3/uL (0.5-4.7); ABSOLUTE MONOCYTES (AUTO) 0.6 10^3/uL (0.1-1.4); ABSOLUTE NEUT (AUTO) 11.3 10^3/uL (1.7-8.2); HEMATOCRIT 35.5 % (36.0-47.0); HEMOGLOBIN 11.6 g/dL (12.0-15.5); LYMPHOCYTES % (AUTO) 5.4 % (13-45); MEAN CORPUSCULAR HEMOGLOBIN 28.4 pg (27.0-33.4); MEAN CORPUSCULAR HGB CONC 32.6 g/dL (32.0-36.0); MEAN CORPUSCULAR VOLUME 87 fl (80-97); MONOCYTES % (AUTO) 4.7 % (3-13); PLATELET COUNT 265 10^3/uL (150-450); RED BLOOD COUNT 4.07 10^6/uL (3.72-5.28); RED CELL DISTRIBUTION WIDTH 14.4 % (11.5-14.0); SEGMENTED NEUTROPHILS % (AUTO) 88.9 % (42-78); TOTAL CELLS COUNTED % (AUTO) 100 %; WHITE BLOOD COUNT 12.7 10^3/uL (4.0-10.5)
[2017-08-05 18:12] LABS: INTERNATIONAL RATION (INR) 1.07; PROTHROMBIN TIME 14.5 SEC (11.4-15.4)
[2017-08-05 18:14] LABS: ALANINE AMINOTRANSFERASE 25 U/L (9-52); ALBUMIN 4.2 g/dL (3.5-5.0); ALKALINE PHOSPHATASE 58 U/L (38-126); ANION GAP 17 (5-19); ASPARTATE AMINO TRANSFERASE 34 U/L (14-36); BILIRUBIN,DIRECT 0.4 mg/dL (0.0-0.4); BILIRUBIN,TOTAL 0.5 mg/dL (0.2-1.3); BLOOD UREA NITROGEN 28 mg/dL (7-20); CARBON DIOXIDE 23 mmol/L (22-30); CHLORIDE 113 mmol/L (98-107); GLUCOSE 170 mg/dL (75-110); POTASSIUM 3.8 mmol/L (3.6-5.0); SODIUM 152.9 mmol/L (137-145); TOTAL PROTEIN 7.1 g/dL (6.3-8.2)
[2017-08-05 18:21] LABS: VENOUS BLOOD BASE EXCESS -1.2 mmol/L; VENOUS BLOOD HCO3 23.3 mmol/L (20-32); VENOUS BLOOD PCO2 38.3 mmHg (35-63); VENOUS BLOOD PH 7.4 (7.30-7.42)
[2017-08-05] MEDS ORDERED: NORMAL SALINE 500 ML IV PRN (18:24)
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
--- NOTE | 2017-08-05 18:40 | EKG REPORT ---
SEVERITY:- ABNORMAL ECG - SINUS RHYTHM CONSIDER POSTERIOR INFARCT : Confirmed by: Chino Taylor MD 05-Aug-2017 18:39:51
--- NOTE | 2017-08-05 19:09 | RADIOLOGY REPORT (SQ) ---
EXAM DESCRIPTION: CHEST SINGLE VIEW COMPLETED DATE/TIME: 08/05/2017 6:39 pm REASON FOR STUDY: bed 4 sepsis protocol COMPARISON: 12/12/2014 EXAM PARAMETERS: NUMBER OF VIEWS: One view. TECHNIQUE: Single frontal radiographic view of the chest acquired. RADIATION DOSE: NA LIMITATIONS: None. FINDINGS: LUNGS AND PLEURA: No opacities, masses or pneumothorax. No pleural effusion. MEDIASTINUM AND HILAR STRUCTURES: No masses. Contour normal. HEART AND VASCULAR STRUCTURES: Heart normal in size. Normal vasculature. BONES: No acute findings. HARDWARE: None in the chest. OTHER: No other significant finding. IMPRESSION: NO ACUTE RADIOGRAPHIC FINDING IN THE CHEST. TECHNICAL DOCUMENTATION: JOB ID: [id number] [employer]- All Rights Reserved Reading location - IP/workstation name: [email or web address]
[2017-08-05] MEDS ORDERED: LABETALOL HCL INJ 20 MG/4 ML DISP.SYRIN IV ONE (19:26)
--- NOTE | 2017-08-05 19:29 | RADIOLOGY REPORT (SQ) ---
EXAM DESCRIPTION: CT HEAD WITHOUT COMPLETED DATE/TIME: 08/05/2017 7:20 pm REASON FOR STUDY: ACUTE CONFUSION COMPARISON: 05/23/2015 TECHNIQUE: Axial images acquired through the brain without intravenous contrast. Images reviewed wi th bone, brain and subdural windows. Additional sagittal and coronal reconstructions were generated. Images stored on PACS. All CT scanners at this facility use dose modulation, iterative reconstruction, and/or weight based d osing when appropriate to reduce radiation dose to as low as reasonably achievable (ALARA). [facility]: Dose Right [facility]: CareDose [facility]: Dose Right [facility]: Teradose 4D [facility]: Smart [employer] RADIATION DOSE: CT Rad equipment meets quality standard of care and radiation dose reduction techniq ues were employed. CTDIvol: 53.2 mGy. DLP: 1044 mGy-cm. mGy. LIMITATIONS: None. FINDINGS: VENTRICLES: Normal size and contour. CEREBRUM: Mild cortical atrophy. No masses. No hemorrhage. No midline shift. No evidence for acut e infarction. Few scattered areas of low density in the white matter most likely chronic small vessel ischemic changes. CEREBELLUM: No masses. No hemorrhage. No alteration of density. No evidence for acute infarction. EXTRAAXIAL SPACES: No fluid collections. No masses. ORBITS AND GLOBE: No intra- or extraconal masses. Normal contour of globe without masses. CALVARIUM: No fracture. PARANASAL SINUSES: No fluid or mucosal thickening. SOFT TISSUES: No mass or hematoma. OTHER: No other significant finding. IMPRESSION: MILD CHRONIC MICROVASCULAR ISCHEMIA. NO ACUTE IMAGING FINDINGS IN THE BRAIN. EVIDENCE OF ACUTE STROKE: NO. COMMENT: Quality ID # [id number]: Final reports with documentation of one or more dose reduction techniques (e.g., Automated exposure control, adjustment of the mA and/or kV according to patient size, use of iterative reconstruction technique) TECHNICAL DOCUMENTATION: JOB ID: [id number] [employer]- All Rights Reserved Reading location - IP/workstation name: [email or web address]
[2017-08-05] MEDS ORDERED: CLONIDINE HCL 0.2 MG TABLET PO ONE (19:32)
[2017-08-05 20:24] LABS: APPEARANCE,URINE SLIGHTLY-CLOUDY; BILIRUBIN,URINE NEGATIVE (NEGATIVE); COLOR,URINE YELLOW; GLUCOSE, URINE 50 mg/dL (NEGATIVE); KETONES,URINE TRACE mg/dL (NEGATIVE); LEUKOCYTE ESTERASE,URINE NEGATIVE (NEGATIVE); NITRITE,URINE NEGATIVE (NEGATIVE); PROTEIN,URINE 100 mg/dL (NEGATIVE); UROBILINOGEN,URINE NEGATIVE mg/dL (<2.0)
[2017-08-05] MEDS ORDERED: MAGNESIUM HYDROXIDE SUSP 30 ML UDCUP PO PRN (21:00)
[2017-08-05] MEDS ORDERED: IPRATROPIUM/ALBUTEROL 0.5-2.5 MG/3 ML AMPUL NEB PRN (21:00)
[2017-08-05] MEDS ORDERED: ACETAMINOPHEN 325 MG TABLET PO PRN (21:00)
[2017-08-05] MEDS ORDERED: ONDANSETRON HCL INJ/PF 4 MG/2 ML SDV IV PRN (21:00)
[2017-08-05] MEDS ORDERED: HYDRALAZINE HCL INJ/PF 20 MG/1 ML SDV IV PRN (21:04)
[2017-08-05 21:07] LABS: URINE AMPHETAMINES SCREEN NEGATIVE; URINE BARBITURATES SCREEN NEGATIVE; URINE BENZODIAZEPINES SCREEN NEGATIVE; URINE COCAINE SCREEN NEGATIVE; URINE MARIJUANA (THC) SCREEN NEGATIVE; URINE METHADONE SCREEN NEGATIVE; URINE PHENCYCLIDINE SCREEN NEGATIVE
[2017-08-05 21:23] LABS: PHOSPHORUS 3.8 mg/dL (2.5-4.5)
[2017-08-05 21:35] LABS: CREATINE KINASE MB 3.08 ng/mL (<4.55)
[2017-08-05 21:38] LABS: TROPONIN I 0.039 ng/mL
[2017-08-05] MEDS: HEPARIN SOD (PORCINE) 5,000 UNIT/ML 1 ML SYRINGE SUBCUT SCH (22:43)
[2017-08-05] MEDS: 1/2 NORMAL SALINE 1,000 ML IV SCH ×2 (23:48→23:49)
--- NOTE | 2017-08-06 01:41 | PDOC H&P ---
History of Present Illness Admission Date/PCP: 08/05/17 21:15 Patient complains of: Altered mental status History of Present Illness: YAMILEX BENJAMIN is a 81 year old female with a past medical history of chronic pain, depression and polypharmacy. Patient is unhelpful historian secondary to delirium. Patient's neighbor and tenant found her disheveled and disoriented, covered in urine and feces and brought to the emergency room. Workup reveals hypernatremia of 152 and mild leukocytosis of 12.7. Patient's prescriptions for Ultram and Soma are found empty. There is no history of suicide ideation. Patient has an identical presentation 2014. Patient's neighbor verifies she obtains medications from several different prescribers. She is referred to the hospitalist for admission Past Medical History Cardiac Medical History: Reports: Coronary Artery Disease, Hyperlipidema, Peripheral Vascular Disease Denies: Myocardial Infarction, Hypertension Pulmonary Medical History: Denies: Asthma, Bronchitis, Chronic Obstructive Pulmonary Disease (COPD), Pneumonia, Tuberculosis Neurological Medical History: Denies: Seizures Musculoskeltal Medical History: Reports: Arthritis Psychiatric Medical History: Reports: Depression Hematology: Denies: Anemia Past Surgical History Past Surgical History: Reports: Appendectomy, Cardiac Catheterization - stents, Cholecystectomy, Coronary Stent, Herniorrhaphy - Umbilical hernia, Hysterectomy , Orthopedic Surgery - L1 vertebroplasty, Vascular Surgery - Aortobiiliac iliac stent within an abdominal aortic aneurysm Social History Information Source: Friend, [facility] Records Lives with: Alone Smoking Status: Unknown if Ever Smoked Frequency of Alcohol Use: None Hx Recreational Drug Use: No Hx Prescription Drug Abuse: No - Advance Directive Resuscitation Status: Full Code Family History Family History: None - Unobtainable Parental Family History Reviewed: Yes - Unobtainable Children Family History Reviewed: Yes - Unobtainable Sibling(s) Family History Reviewed.: Yes - Unobtainable Medication/Allergy Home Medications: Carisoprodol [Soma 350 mg Tablet] 350 mg PO Q12HP PRN 08/05/17 Diclofenac Sodium [Voltaren] 75 mg PO BID 08/05/17 Gabapentin [Neurontin 300 mg Capsule] 300 mg PO Q8 08/05/17 Meloxicam [Mobic] 7.5 mg PO BID 08/05/17 Allergies/Adverse Reactions: No Known Allergies Allergy (Verified 05/11/17 11:24) Review of Systems ROS unobtainable: Due to mental status - Delirium Physical Exam Vital Signs: Temp Pulse Resp BP Pulse Ox 98.2 F 77 16 157/60 H 98 08/06/17 00:51 08/06/17 00:51 08/06/17 00:51 08/06/17 00:51 08/06/17 00:51 Intake & Output 08/04/17 08/05/17 08/06/17 11:59 11:59 11:59 Weight 52.2 kg General appearance: PRESENT: disheveled, mild distress. ABSENT: cooperative Head exam: PRESENT: atraumatic, normocephalic Eye exam: PRESENT: conjunctiva pink, EOMI, PERRLA. ABSENT: scleral icterus Ear exam: PRESENT: normal external ear exam Mouth exam: PRESENT: dry mucosa, tongue midline Neck exam: ABSENT: carotid bruit, JVD, lymphadenopathy, thyromegaly Respiratory exam: PRESENT: clear to auscultation seth. ABSENT: rales, rhonchi, wheezes Cardiovascular exam: PRESENT: RRR. ABSENT: diastolic murmur, rubs, systolic murmur Pulses: PRESENT: normal dorsalis pedis pul Vascular exam: PRESENT: normal capillary refill GI/Abdominal exam: PRESENT: normal bowel sounds, soft. ABSENT: distended, guarding, mass, organolmegaly, rebound, tenderness Rectal exam: PRESENT: deferred Extremities exam: PRESENT: full ROM. ABSENT: calf tenderness, clubbing, pedal edema Neurological exam: PRESENT: alert, altered, awake, oriented to person, reflexes normal, CN II-XII grossly intact. ABSENT: oriented to time, oriented to situation Psychiatric exam: PRESENT: unusual affect. ABSENT: homicidal ideation, suicidal ideation Skin exam: PRESENT: dry, intact, warm. ABSENT: cyanosis, rash Results Impressions: Chest X-Ray 08/05/17 17:42 IMPRESSION: NO ACUTE RADIOGRAPHIC FINDING IN THE CHEST. Head CT 08/05/17 18:24 IMPRESSION: MILD CHRONIC MICROVASCULAR ISCHEMIA. NO ACUTE IMAGING FINDINGS IN THE BRAIN. EVIDENCE OF ACUTE STROKE: NO. Assessment & Plan - Diagnosis (1) Hypernatremia Is this a current diagnosis for this admission?: Yes Plan: Likely secondary to dehydration. Patient will have half-normal saline and encouraged p.o. fluids. Follow-up chemistry (2) Encephalopathy acute Is this a current diagnosis for this admission?: Yes Plan: Likely secondary to polypharmacy given identical presentation in 2015. Supportive measures, discharge planning consult - Time Time Spent: 50 to 70 Minutes
[2017-08-06] MEDS: HEPARIN SOD (PORCINE) 5,000 UNIT/ML 1 ML SYRINGE SUBCUT SCH ×2 (05:03→14:19)
[2017-08-06 05:59] LABS: HEMATOCRIT 32.7 % (36.0-47.0); HEMOGLOBIN 10.6 g/dL (12.0-15.5); MEAN CORPUSCULAR HEMOGLOBIN 28.3 pg (27.0-33.4); MEAN CORPUSCULAR HGB CONC 32.4 g/dL (32.0-36.0); MEAN CORPUSCULAR VOLUME 87 fl (80-97); PLATELET COUNT 205 10^3/uL (150-450); RED BLOOD COUNT 3.74 10^6/uL (3.72-5.28); RED CELL DISTRIBUTION WIDTH 14.7 % (11.5-14.0); WHITE BLOOD COUNT 8.1 10^3/uL (4.0-10.5)
[2017-08-06 06:04] LABS: ANION GAP 10 (5-19); BLOOD UREA NITROGEN 23 mg/dL (7-20); CARBON DIOXIDE 26 mmol/L (22-30); CHLORIDE 112 mmol/L (98-107); GLUCOSE 88 mg/dL (75-110); POTASSIUM 3.7 mmol/L (3.6-5.0); SODIUM 147.7 mmol/L (137-145)
[2017-08-06 06:46] LABS: ABSOLUTE LYMPHOCYTES# (MANUAL) 1.7 10^3/uL (0.5-4.7); ABSOLUTE MONOCYTES # (MANUAL) 0.6 10^3/uL (0.1-1.4); ABSOLUTE NEUTROPHILS# (MANUAL) 5.8 10^3/uL (1.7-8.2); BASOPHILS % (MANUAL) 1 % (0-2); EOSINOPHILS % (MANUAL) 0 % (0-6); LYMPHOCYTES % (MANUAL) 21 % (13-45); MONOCYTES % (MANUAL) 7 % (3-13); SEGMENTED NEUTROPHILS % (MAN) 71 % (42-78); TOTAL CELLS COUNTED 100
[2017-08-06 06:48] LABS: ANISOCYTOSIS SLIGHT; OVALOCYTES 1+; PLATELET COMMENT ADEQUATE; POIKILOCYTOSIS 1+; TOXIC GRANULATION SLIGHT
[2017-08-06] MEDS ORDERED: DOCUSATE SODIUM 100 MG CAPSULE PO SCH (10:00)
--- NOTE | 2017-08-06 17:11 | PDOC DISCHARGE SUMMARY ---
General - Admit/Disc Date/PCP Admission Date/Primary Care Provider: 08/05/17 21:15 Discharge Date: 08/06/17 - Discharge Diagnosis (1) Encephalopathy acute Is this a current diagnosis for this admission?: Yes Summary: No clear etiology established. By morning it had resolved and she was requesting discharge. She has a history of dementia with behavioral disturbance , as well as a history of polypharmacy. It is noted that her urine drug screen was negative. Controlled substance monitoring shows she has not gotten any sedating medications filled since March. 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 Female member of that couple confirmed that. I am somewhat uncomfortable with this arrangement, though I do not have any specific justification, so I will have home health go out to monitor. (2) Hypernatremia Is this a current diagnosis for this admission?: Yes Summary: Resolved with hypotonic saline. Counseled to maintain adequate hydration. - Additional Information Resuscitation Status: Full Code Discharge Diet: Regular Discharge Activity: Activity As Tolerated, Balance Activity w/Rest, No Driving Home Medications: Carisoprodol [Soma 350 mg Tablet] 350 mg PO Q12HP PRN 08/05/17 Diclofenac Sodium [Voltaren] 75 mg PO BID 08/05/17 Gabapentin [Neurontin 300 mg Capsule] 300 mg PO Q8 08/05/17 Meloxicam [Mobic] 7.5 mg PO BID 08/05/17 History of Present Illness Patient complains of: Confused History of Present Illness: YAMILEX BENJAMIN is a 81 year old female with a past medical history of chronic pain, depression and polypharmacy. Patient is unhelpful historian secondary to delirium. Patient's neighbor and tenant found her disheveled and disoriented, covered in urine and feces and brought to the emergency room. Workup reveals hypernatremia of 152 and mild leukocytosis of 12.7. Patient's prescriptions for Ultram and Soma are found empty. There is no history of suicide ideation. Patient has an identical presentation 2014. Patient's neighbor verifies she obtains medications from several different prescribers. She is referred to the hospitalist for admission Hospital Course Hospital Course: She was treated with hypertonic saline. Serum sodium improved overnight. When I saw her this morning she was unable to tell me the date, but was able to tell me the president, where she was, she had no idea why she was here and wanted to go home. I am somewhat concerned about her living situation, so I will have home health monitor. Physical Exam Vital Signs: Temp Pulse Resp BP Pulse Ox 97.7 F 75 16 150/53 H 100 08/06/17 14:49 08/06/17 16:51 08/06/17 16:51 08/06/17 14:49 08/06/17 16:51 Intake & Output 08/05/17 08/06/17 08/07/17 05:59 05:59 05:59 Intake Total 1000 Balance 1000 Weight 115 lb 1.301 oz 117 lb 15.157 oz General appearance: PRESENT: no acute distress. ABSENT: cooperative Respiratory exam: PRESENT: clear to auscultation seth Cardiovascular exam: PRESENT: RRR GI/Abdominal exam: PRESENT: soft Extremities exam: ABSENT: pedal edema Musculoskeletal exam: PRESENT: normal inspection Neurological exam: PRESENT: alert, oriented to person, oriented to place. ABSENT: oriented to time, oriented to situation, motor sensory deficit Psychiatric exam: PRESENT: unusual affect Skin exam: PRESENT: warm Results Laboratory Results: 08/06/17 05:03 08/06/17 05:03 08/06/17 08/06/17 05:03 05:03 WBC 8.1 RBC 3.74 Hgb 10.6 L Hct 32.7 L MCV 87 MCH 28.3 MCHC 32.4 RDW 14.7 H Plt Count 205 Seg Neutrophils % Not Reportable Lymphocytes % Not Reportable Monocytes % Not Reportable Eosinophils % Not Reportable Basophils % Not Reportable Absolute Neutrophils Not Reportable Absolute Lymphocytes Not Reportable Absolute Monocytes Not Reportable Absolute Eosinophils Not Reportable Absolute Basophils Not Reportable Sodium 147.7 H Potassium 3.7 Chloride 112 H Carbon Dioxide 26 Anion Gap 10 BUN 23 H Creatinine 0.76 Est GFR ( Amer) > 60 Est GFR (Non-Af Amer) > 60 Glucose 88 Calcium 9.0 Impressions: Chest X-Ray 08/05/17 17:42 IMPRESSION: NO ACUTE RADIOGRAPHIC FINDING IN THE CHEST. Head CT 08/05/17 18:24 IMPRESSION: MILD CHRONIC MICROVASCULAR ISCHEMIA. NO ACUTE IMAGING FINDINGS IN THE BRAIN. EVIDENCE OF ACUTE STROKE: NO. Qualifiers - * PATIENT BEING DISCHARGED WITH ANY OF THE FOLLOWING DIAGNOSIS: No
[2017-08-06 17:29] VITALS: BP 165/61
== END 2017-08-06 17:30 | disposition home health service (06) | DRG 640 ==
LOC: ER 17:36 → EH 21:15 → 3W 08-06 00:31
PROVIDERS: ADMIT Internal Medicine; ATTEND Internal Medicine
PROC: 3E0F73Z Introduction of Anti-inflammatory into Respiratory Tract, Via Natural or Artificial Opening (ICD-10-PCS; principal; 2017-08-06)
DX: E87.0 Hyperosmolality and hypernatremia (principal); G93.40 Encephalopathy, unspecified; F03.91 Unspecified dementia, unspecified severity, with behavioral disturbance; G89.4 Chronic pain syndrome; F32.9 Major depressive disorder, single episode, unspecified; D72.829 Elevated white blood cell count, unspecified; I25.10 Atherosclerotic heart disease of native coronary artery without angina pectoris; E78.5 Hyperlipidemia, unspecified; I73.9 Peripheral vascular disease, unspecified; M19.90 Unspecified osteoarthritis, unspecified site; E86.0 Dehydration; Z60.9 Problem related to social environment, unspecified; Z90.49 Acquired absence of other specified parts of digestive tract; Z95.5 Presence of coronary angioplasty implant and graft
CPT/HCPCS: 36415; 70450; 71045; 80048; 80053; 80307; 81001; 82550; 82553; 82803; 83605; 83735; 84100; 84443; 84484; 85025; 85610; 87040; 87086; 93005; 93010; 99285; G8978-GP; G8979-GP; G8987-GO; G8988-GO; G8989-GO; J1644; J7040

== ENCOUNTER 2017-11-22 14:58 | Inpatient (IN) | payer MEDICARE ==
[2017-11-22] MEDS ORDERED: NORMAL SALINE 500 ML IV ONE (15:08)
[2017-11-22 15:51] LABS: ABSOLUTE BASOPHILS # (AUTO) 0.1 10^3/uL (0.0-0.2); ABSOLUTE LYMPHOCYTES (AUTO) 0.9 10^3/uL (0.5-4.7); ABSOLUTE MONOCYTES (AUTO) 0.8 10^3/uL (0.1-1.4); ABSOLUTE NEUT (AUTO) 7.9 10^3/uL (1.7-8.2); BASOPHILS % (AUTO) 0.9 % (0-2); EOSINOPHILS % (AUTO) 0.1 % (0-6); HEMOGLOBIN 12.6 g/dL (12.0-15.5); LYMPHOCYTES % (AUTO) 9.2 % (13-45); MEAN CORPUSCULAR HEMOGLOBIN 30.3 pg (27.0-33.4); MEAN CORPUSCULAR HGB CONC 33.1 g/dL (32.0-36.0); MEAN CORPUSCULAR VOLUME 92 fl (80-97); MONOCYTES % (AUTO) 8.5 % (3-13); PLATELET COUNT 251 10^3/uL (150-450); RED BLOOD COUNT 4.16 10^6/uL (3.72-5.28); RED CELL DISTRIBUTION WIDTH 16.7 % (11.5-14.0); SEGMENTED NEUTROPHILS % (AUTO) 81.3 % (42-78); TOTAL CELLS COUNTED % (AUTO) 100 %; WHITE BLOOD COUNT 9.7 10^3/uL (4.0-10.5)
[2017-11-22 16:04] LABS: APPEARANCE,URINE SLIGHTLY-CLOUDY; BILIRUBIN,URINE NEGATIVE (NEGATIVE); COLOR,URINE YELLOW; GLUCOSE, URINE NEGATIVE (NEGATIVE); KETONES,URINE 20 mg/dL (NEGATIVE); LEUKOCYTE ESTERASE,URINE NEGATIVE (NEGATIVE); NITRITE,URINE NEGATIVE (NEGATIVE); PROTEIN,URINE 100 mg/dL (NEGATIVE)
[2017-11-22 16:07] LABS: ALANINE AMINOTRANSFERASE 13 U/L (9-52); ALBUMIN 4.2 g/dL (3.5-5.0); ALKALINE PHOSPHATASE 60 U/L (38-126); ANION GAP 12 (5-19); ASPARTATE AMINO TRANSFERASE 28 U/L (14-36); BILIRUBIN,DIRECT 0.5 mg/dL (0.0-0.4); BILIRUBIN,TOTAL 0.8 mg/dL (0.2-1.3); BLOOD UREA NITROGEN 18 mg/dL (7-20); CARBON DIOXIDE 24 mmol/L (22-30); CHLORIDE 112 mmol/L (98-107); CREATINE KINASE 39 U/L (30-135); GLUCOSE 121 mg/dL (75-110); POTASSIUM 3.3 mmol/L (3.6-5.0); TOTAL PROTEIN 7.6 g/dL (6.3-8.2)
--- NOTE | 2017-11-22 16:07 | ER Document Report ---
ED General - General Chief Complaint: Altered Mental Status Stated Complaint: WEAKNESS Time Seen by Provider: 11/22/17 15:06 Notes: Patient is an 81-year-old female with dementia that presents to the emergency department for chief complaint of being found outside on the ground outside of her house. Patient is currently not speaking, not providing any significant history. History obtained by EMS as well as the patient's neighbor who is at bedside. The patient's neighbor is not sure how long she was outside, it could have been as long as last night, the patient has skin tears to her extremities. She is not communicating anything at this time. Per EMS the patient was covered in feces, and her home was covered and urine and feces as well as multiple insects. The patient was noted to have what appeared to be fire ant bites to her feet, which the neighbor thinks may have occurred on Thursday. Past Medical History: Dementia Past Surgical History: Not obtainable at this time Social History: Lives at home Family History: Reviewed and noncontributory for presenting illness Allergies: Reviewed, see documented allergy list. REVIEW OF SYSTEMS: Unless otherwise stated in this report the patient's positive and negative responses for review of systems for constitutional, eyes, ENT, cardiovascular, respiratory, gastrointestinal, neurological, genitourinary, musculoskeletal, and integumentary systems and related systems to the presenting problem are either as stated in the HPI or were not pertinent or were negative for the symptoms and/or complaints related to the presenting medical problem. PHYSICAL EXAMINATION: Vital signs reviewed, nursing noted reviewed. GENERAL: Elderly female, no apparent or acute distress HEAD: Atraumatic, normocephalic. EYES: Eyes appear normal, extraocular movements intact, sclera anicteric, conjunctiva are normal. ENT: nares patent, oropharynx clear without exudates. Moist mucous membranes. NECK: Normal range of motion, supple without lymphadenopathy LUNGS: Breath sounds clear to auscultation bilaterally and equal. No wheezes rales or rhonchi. HEART: Regular rate and rhythm without murmurs ABDOMEN: Soft, nontender, normoactive bowel sounds. No rebound, guarding, or rigidity. No masses appreciated. EXTREMITIES: Nontender, good range of motion, no pitting or edema. No deformities noted NEUROLOGICAL: No focal neurological deficits. Moves all extremities spontaneously Motor and sensory grossly intact on exam. PSYCH: Flat affect, nonverbal SKIN: Several skin tears noted to the left upper extremity, multiple bites to both feet, that appear to be consistent with fire ant bites. TRAVEL OUTSIDE OF THE [place] IN LAST 30 DAYS: No - Related Data Allergies/Adverse Reactions: egg Allergy (Verified 11/22/17 15:38) Egg Derived Allergy (Verified 11/22/17 15:38) egg yolk Allergy (Verified 11/22/17 15:38) Past Medical History - Social History Smoking Status: Unknown if Ever Smoked Family History: None - Unobtainable - Past Medical History Cardiac Medical History: Reports: Hx Coronary Artery Disease, Hx Hypercholesterolemia, Hx Peripheral Vascular Disease Denies: Hx Heart Attack, Hx Hypertension Pulmonary Medical History: Denies: Hx Asthma, Hx Bronchitis, Hx COPD, Hx Pneumonia, Hx Tuberculosis Neurological Medical History: Denies: Hx Cerebrovascular Accident, Hx Seizures Renal/ Medical History: Reports: Hx Kidney Stones. Denies: Hx Peritoneal Dialysis Musculoskeletal Medical History: Reports Hx Arthritis Psychiatric Medical History: Reports: Hx Depression Past Surgical History: Reports: Hx Appendectomy, Hx Cardiac Catheterization - stents, Hx Cardiac Surgery - stent, Hx Cholecystectomy, Hx Coronary Stent, Hx Herniorrhaphy - Umbilical hernia, Hx Hysterectomy, Hx Oral Surgery, Hx Orthopedic Surgery - L1 vertebroplasty, Hx Umbilical Hernia, Hx Vascular Surgery - Aortobiiliac iliac stent within an abdominal aortic aneurysm - Immunizations Immunizations up to date: Yes Hx Diphtheria, Pertussis, Tetanus Vaccination: Yes Hx Pneumococcal Vaccination: 03/16/03 Physical Exam - Vital signs Vitals: Pulse Ox 98 11/22/17 15:00 Course - Re-evaluation Re-evalutation: 11/22/17 16:57 Patient seen and examined vital signs reviewed. Laboratory data and imaging were ordered as appropriate for the patient's presenting symptoms and complaint, with consideration of any critical or life threatening conditions that may be associated with their obtained history and exam as noted above. Patient was treated with IV fluids Results were reviewed when available and demonstrated hypernatremia, likely due to volume depletion The patient was re-evaluated and was stable, wound were dressed Evaluation was most consistent with metabolic encephalopathy, hypernatremia, hypokalemia Results were discussed with the patient at this point after careful consideration I feel that that patient should be admitted to the hospital. This was discussed with the patient that it is in the best interest for their care to be admitted for further evaluation and management. Patient agreed with this plan of care. A call was placed to the admitted physician, [] who graciously accepted the patient onto their service. *Note is created using voice recognition software and may contain spelling, syntax or grammatical errors. Laboratory 11/22/17 11/22/17 11/22/17 14:52 14:52 14:52 WBC 9.7 RBC 4.16 Hgb 12.6 Hct 38.0 MCV 92 MCH 30.3 MCHC 33.1 RDW 16.7 H Plt Count 251 Seg Neutrophils % 81.3 H Lymphocytes % 9.2 L Monocytes % 8.5 Eosinophils % 0.1 Basophils % 0.9 Absolute Neutrophils 7.9 Absolute Lymphocytes 0.9 Absolute Monocytes 0.8 Absolute Eosinophils 0.0 Absolute Basophils 0.1 Sodium 148.0 H Potassium 3.3 L Chloride 112 H Carbon Dioxide 24 Anion Gap 12 BUN 18 Creatinine 1.04 Est GFR ( Amer) > 60 Est GFR (Non-Af Amer) 51 L Glucose 121 H Lactic Acid Calcium 10.0 Total Bilirubin 0.8 Direct Bilirubin 0.5 H Neonat Total Bilirubin Not Reportable Neonat Direct Bilirubin Not Reportable Neonat Indirect Bili Not Reportable AST 28 ALT 13 Alkaline Phosphatase 60 Creatine Kinase 39 CK-MB (CK-2) Troponin I 0.033 Total Protein 7.6 Albumin 4.2 Urine Color Urine Appearance Urine pH Ur Specific [place] Urine Protein Urine Glucose (UA) Urine Ketones Urine Blood Urine Nitrite Urine Bilirubin Urine Urobilinogen Ur Leukocyte Esterase Urine WBC (Auto) Urine RBC (Auto) Urine Bacteria (Auto) Squamous Epi Cells Auto Urine Mucus (Auto) Urine Ascorbic Acid Urine Opiates Screen Urine Methadone Screen Ur Barbiturates Screen Ur Phencyclidine Scrn Ur Amphetamines Screen U Benzodiazepines Scrn Urine Cocaine Screen U Marijuana (THC) Screen 11/22/17 11/22/17 11/22/17 14:52 14:52 14:52 WBC RBC Hgb Hct MCV MCH MCHC RDW Plt Count Seg Neutrophils % Lymphocytes % Monocytes % Eosinophils % Basophils % Absolute Neutrophils Absolute Lymphocytes Absolute Monocytes Absolute Eosinophils Absolute Basophils Sodium Potassium Chloride Carbon Dioxide Anion Gap BUN Creatinine Est GFR ( Amer) Est GFR (Non-Af Amer) Glucose Lactic Acid 1.2 Calcium Total Bilirubin Direct Bilirubin Neonat Total Bilirubin Neonat Direct Bilirubin Neonat Indirect Bili AST ALT Alkaline Phosphatase Creatine Kinase CK-MB (CK-2) Troponin I Total Protein Albumin Urine Color YELLOW Urine Appearance SLIGHTLY-CLOUDY Urine pH 6.0 Ur Specific [place] 1.020 Urine Protein 100 H Urine Glucose (UA) NEGATIVE Urine Ketones 20 H Urine Blood LARGE H Urine Nitrite NEGATIVE Urine Bilirubin NEGATIVE Urine Urobilinogen 4.0 H Ur Leukocyte Esterase NEGATIVE Urine WBC (Auto) 22 Urine RBC (Auto) >182 Urine Bacteria (Auto) TRACE Squamous Epi Cells Auto 2 Urine Mucus (Auto) FEW Urine Ascorbic Acid NEGATIVE Urine Opiates Screen NEGATIVE Urine Methadone Screen NEGATIVE Ur Barbiturates Screen NEGATIVE Ur Phencyclidine Scrn NEGATIVE Ur Amphetamines Screen NEGATIVE U Benzodiazepines Scrn NEGATIVE Urine Cocaine Screen NEGATIVE U Marijuana (THC) Screen NEGATIVE 11/22/17 11/22/17 19:47 19:47 WBC RBC Hgb Hct MCV MCH MCHC RDW Plt Count Seg Neutrophils % Lymphocytes % Monocytes % Eosinophils % Basophils % Absolute Neutrophils Absolute Lymphocytes Absolute Monocytes Absolute Eosinophils Absolute Basophils Sodium Potassium Chloride Carbon Dioxide Anion Gap BUN Creatinine Est GFR ( Amer) Est GFR (Non-Af Amer) Glucose Lactic Acid Calcium Total Bilirubin Direct Bilirubin Neonat Total Bilirubin Neonat Direct Bilirubin Neonat Indirect Bili AST ALT Alkaline Phosphatase Creatine Kinase 34 CK-MB (CK-2) 0.97 Troponin I 0.032 Total Protein Albumin Urine Color Urine Appearance Urine pH Ur Specific [place] Urine Protein Urine Glucose (UA) Urine Ketones Urine Blood Urine Nitrite Urine Bilirubin Urine Urobilinogen Ur Leukocyte Esterase Urine WBC (Auto) Urine RBC (Auto) Urine Bacteria (Auto) Squamous Epi Cells Auto Urine Mucus (Auto) Urine Ascorbic Acid Urine Opiates Screen Urine Methadone Screen Ur Barbiturates Screen Ur Phencyclidine Scrn Ur Amphetamines Screen U Benzodiazepines Scrn Urine Cocaine Screen U Marijuana (THC) Screen Chest X-Ray 11/22/17 15:06 IMPRESSION: COPD. NO ACUTE RADIOGRAPHIC FINDING IN THE CHEST. Head CT 11/22/17 16:07 IMPRESSION: MILD CHRONIC CHANGES OF ATROPHY AND MICROVASCULAR ISCHEMIA. NO ACUTE PROCESS. EVIDENCE OF ACUTE STROKE: NO. - Vital Signs Vital signs: Temp Pulse Resp BP Pulse Ox 106 H 20 150/58 H 98 11/22/17 15:34 11/22/17 22:00 11/22/17 22:00 11/22/17 22:00 - Laboratory Result Diagrams: 11/22/17 14:52 11/22/17 14:52 Laboratory results interpreted by me: 11/22/17 11/22/17 11/22/17 14:52 14:52 14:52 RDW 16.7 H Seg Neutrophils % 81.3 H Lymphocytes % 9.2 L Sodium 148.0 H Potassium 3.3 L Chloride 112 H Est GFR (Non-Af Amer) 51 L Glucose 121 H Direct Bilirubin 0.5 H Urine Protein 100 H Urine Ketones 20 H Urine Blood LARGE H Urine Urobilinogen 4.0 H Discharge - Discharge Clinical Impression: Metabolic encephalopathy, Hypernatremia, Hypokalemia Condition: Stable Disposition: ADMITTED INPATIENT Admitting Provider: Hospitalist - Dr. Lewis Unit Admitted: Telemetry
--- NOTE | 2017-11-22 16:23 | EKG REPORT ---
SEVERITY:- ABNORMAL ECG - SINUS TACHYCARDIA NONSPECIFIC INTRAVENTRICULAR CONDUCTION DELAY PROBABLE LVH WITH SECONDARY REPOL ABNRM : Confirmed by: Chino Taylor MD 22-Nov-2017 16:22:17
--- NOTE | 2017-11-22 16:38 | RADIOLOGY REPORT (SQ) ---
EXAM DESCRIPTION: CHEST SINGLE VIEW COMPLETED DATE/TIME: 11/22/2017 4:24 pm REASON FOR STUDY: weakness COMPARISON: 08/05/2017. NUMBER OF VIEWS: One view. TECHNIQUE: Single frontal radiographic view of the chest acquired. LIMITATIONS: None. FINDINGS: LUNGS AND PLEURA: No opacities, masses or pneumothorax. No pleural effusion. Attenuated bl ood vessels and flattened citlaly-diaphragms. MEDIASTINUM AND HILAR STRUCTURES: No masses. Contour normal. HEART AND VASCULAR STRUCTURES: Heart normal in size. Normal vasculature. BONES: No acute findings. HARDWARE: None in the chest. OTHER: No other significant finding. IMPRESSION: COPD. NO ACUTE RADIOGRAPHIC FINDING IN THE CHEST. TECHNICAL DOCUMENTATION: JOB ID: [id number] [email or web address]- All Rights Reserved Reading location - IP/workstation name: [email or web address]
--- NOTE | 2017-11-22 16:42 | RADIOLOGY REPORT (SQ) ---
EXAM DESCRIPTION: CT HEAD WITHOUT COMPLETED DATE/TIME: 11/22/2017 4:30 pm REASON FOR STUDY: ALTERED MENTAL STATUS COMPARISON: 08/05/2017. TECHNIQUE: Axial images acquired through the brain without intravenous contrast. Images reviewed wi th bone, brain and subdural windows. Additional sagittal and coronal reconstructions were generated. Images stored on PACS. All CT scanners at this facility use dose modulation, iterative reconstruction, and/or weight based d osing when appropriate to reduce radiation dose to as low as reasonably achievable (ALARA). [facility]: Dose Right [facility]: CareDose [facility]: Dose Right [facility]: Teradose 4D [facility]: Smart c8apps RADIATION DOSE: CT Rad equipment meets quality standard of care and radiation dose reduction techniq ues were employed. CTDIvol: 53.2 mGy. DLP: 964 mGy-cm. mGy. LIMITATIONS: None. FINDINGS: VENTRICLES: Prominent. CEREBRUM: No masses. No hemorrhage. No midline shift. Areas of low density in the white matter mos t likely due to chronic micro-vascular ischemic change. No evidence for acute infarction. CEREBELLUM: No masses. No hemorrhage. No alteration of density. No evidence for acute infarction. EXTRAAXIAL SPACES: Mild age-related involutional change. No fluid collections. No masses. ORBITS AND GLOBE: No intra- or extraconal masses. Normal contour of globe without masses. CALVARIUM: No fracture. PARANASAL SINUSES: No fluid or mucosal thickening. SOFT TISSUES: No mass or hematoma. OTHER: No other significant finding. IMPRESSION: MILD CHRONIC CHANGES OF ATROPHY AND MICROVASCULAR ISCHEMIA. NO ACUTE PROCESS. EVIDENCE OF ACUTE STROKE: NO. TECHNICAL DOCUMENTATION: JOB ID: [id number] Quality ID # [id number]: Final reports with documentation of one or more dose reduction techniques (e.g., Au tomated exposure control, adjustment of the mA and/or kV according to patient size, use of iterative reconstruction technique) 2010 [employer]- All Rights Reserved Reading location - IP/workstation name: [email or web address]
[2017-11-22] MEDS ORDERED: POTASSI CL 20 MEQ/1/2NS 1L 20 MEQ/1,000 ML RTUINJ IV ONE (16:51)
[2017-11-22] MEDS ORDERED: ONDANSETRON 4 MG TAB.RAPDIS PO PRN (17:46)
[2017-11-22] MEDS ORDERED: ACETAMINOPHEN 325 MG TABLET PO PRN (17:46)
[2017-11-22] MEDS ORDERED: MAG HYDROX/AL HYDROX/SIMETH SUSP 30 ML UDCUP PO PRN (17:46)
[2017-11-22] MEDS ORDERED: TEMAZEPAM 7.5 MG CAPSULE PO PRN (17:46)
[2017-11-22] MEDS ORDERED: MAGNESIUM HYDROXIDE SUSP 30 ML UDCUP PO PRN (17:46)
--- NOTE | 2017-11-22 18:50 | PDOC H&P ---
History of Present Illness Admission Date/PCP: 11/22/17 17:40 Patient complains of: Altered mental status History of Present Illness: YAMILEX BENJAMIN is an 81 year old female who presented to the emergency room via EMS with a history that she had been noted by neighbors to be lying in her yard. She was found by the neighbors and though she could talk and move her arms and legs she was too weak to get up and so they summoned the EMS services to help the patient. EMS assessment found no focal changes but she appeared to be quite confused to their judgment and she was brought to the emergency room. Additionally EMS reports that she was covered in urine and feces and upon their inspection of her home the indoor premises were also covered with a layer of urine and feces. Since her arrival in the emergency room she has been very poorly oriented and has been observed to have severe short-term and long-term memory deficits. A neighbor who accompanied her reports that she has bad dementia and lives by herself. Upon my assessment of the patient's mental status found that she has different dementia and is unable to contribute any meaningful permission to her medical record. In the emergency room her CT scan and chest x-ray showed no acute changes. Her EKG revealed a sinus tachycardia with left ventricular hypertrophy and repolarization changes. Her serum sodium was slightly elevated at 148 her potassium was slightly decreased at 3.3. Past Medical History Medical History: Other - Medical history entered below is taken from old records and all available reliable sources of knowledge. She is unable to contribute to her medical record due to her dementia. Cardiac Medical History: Reports: Coronary Artery Disease, Hyperlipidema, Peripheral Vascular Disease Denies: Myocardial Infarction, Hypertension Pulmonary Medical History: Denies: Asthma, Bronchitis, Chronic Obstructive Pulmonary Disease (COPD), Pneumonia, Tuberculosis Neurological Medical History: Denies: Seizures Musculoskeltal Medical History: Reports: Arthritis Psychiatric Medical History: Reports: Depression Hematology: Denies: Anemia Past Surgical History Past Surgical History: Reports: Appendectomy, Cardiac Catheterization - stents, Cholecystectomy, Coronary Stent, Herniorrhaphy - Umbilical hernia, Hysterectomy , Orthopedic Surgery - L1 vertebroplasty, Vascular Surgery - Aortobiiliac iliac stent within an abdominal aortic aneurysm Social History Information Source: Friend, Emergency Med Personnel Lives with: Alone Smoking Status: Unknown if Ever Smoked Frequency of Alcohol Use: None Hx Recreational Drug Use: No Hx Prescription Drug Abuse: No Family History Family History: None - Unobtainable Parental Family History Reviewed: No Children Family History Reviewed: No Sibling(s) Family History Reviewed.: No Medication/Allergy Home Medications: Carisoprodol [Soma 350 mg Tablet] 350 mg PO Q12HP PRN 08/05/17 Diclofenac Sodium [Voltaren] 75 mg PO BID 08/05/17 Gabapentin [Neurontin 300 mg Capsule] 300 mg PO Q8 08/05/17 Meloxicam [Mobic] 7.5 mg PO BID 08/05/17 Allergies/Adverse Reactions: egg Allergy (Verified 11/22/17 15:38) Egg Derived Allergy (Verified 11/22/17 15:38) egg yolk Allergy (Verified 11/22/17 15:38) Review of Systems ROS unobtainable: Due to mental status Physical Exam Vital Signs: Temp Pulse Resp BP Pulse Ox 106 H 18 185/64 H 98 11/22/17 15:34 11/22/17 15:31 11/22/17 15:31 11/22/17 15:31 General appearance: PRESENT: no acute distress, cooperative Head exam: PRESENT: atraumatic, normocephalic Eye exam: PRESENT: conjunctiva pink. ABSENT: conjunctival injection Ear exam: PRESENT: normal external ear exam. ABSENT: drainage Mouth exam: PRESENT: neck supple, tongue midline Neck exam: PRESENT: full ROM. ABSENT: JVD, lymphadenopathy, meningismus, tenderness, thyromegaly, tracheal deviation Respiratory exam: PRESENT: clear to auscultation seth, symmetrical, unlabored - Severe dementia Cardiovascular exam: PRESENT: RRR, tachycardia. ABSENT: clicks, diastolic murmur, gallop, rubs, systolic murmur Pulses: PRESENT: normal carotid pulses, normal radial pulses, normal femoral pulses, normal dorsalis pedis pul Vascular exam: PRESENT: normal capillary refill. ABSENT: pallor GI/Abdominal exam: PRESENT: normal bowel sounds, soft. ABSENT: distended, tenderness Rectal exam: PRESENT: deferred Extremities exam: ABSENT: calf tenderness, clubbing, joint swelling, pedal edema Musculoskeletal exam: PRESENT: full ROM, normal inspection. ABSENT: deformity, dislocation Neurological exam: PRESENT: alert, awake, oriented to person - Oriented to self only, reflexes normal, CN II-XII grossly intact. ABSENT: oriented to place, oriented to time, oriented to situation, motor sensory deficit Psychiatric exam: PRESENT: normal mood, other - confused. ABSENT: agitated Skin exam: PRESENT: other - Multiple pustular 6-12 mm erythematous based scattered over the non-plantar surfaces of both feet, ankles and the lower portions of the lower legs.. ABSENT: jaundice, rash, urticaria Results Impressions: Chest X-Ray 11/22/17 15:06 IMPRESSION: COPD. NO ACUTE RADIOGRAPHIC FINDING IN THE CHEST. Head CT 11/22/17 16:07 IMPRESSION: MILD CHRONIC CHANGES OF ATROPHY AND MICROVASCULAR ISCHEMIA. NO ACUTE PROCESS. EVIDENCE OF ACUTE STROKE: NO. Assessment & Plan - Diagnosis (1) Insect bites of multiple sites, infected Is this a current diagnosis for this admission?: Yes Plan: Cleanse and dress the affected areas of lower extremities with Unna boots applied. Initiate oral antibiotic therapy with Keflex. (2) Hypernatremia Is this a current diagnosis for this admission?: Yes Plan: Correct with IV rehydration. (3) Hypokalemia Is this a current diagnosis for this admission?: Yes Plan: Correct with IV repletion. (4) Encephalopathy acute Is this a current diagnosis for this admission?: Yes Plan: Observe for improvement of her mental status and involve executive secretary social welfare for evaluation of her current home and probable need for placement in a guardianship type environment. - Time Time Spent: 50 to 70 Minutes Medications reviewed and adjusted accordingly: Yes Anticipated discharge: SNF Within: when bed available Disposition: Admitted to the medical floor
[2017-11-22] MEDS ORDERED: METOPROLOL SUCCINATE 50 MG TAB.SR.24H PO ONE (20:00)
[2017-11-22] MEDS: DOCUSATE SODIUM 100 MG CAPSULE PO SCH (20:10)
[2017-11-22 20:28] LABS: CREATINE KINASE MB 0.97 ng/mL (<4.55); TROPONIN I 0.032 ng/mL
[2017-11-22 20:43] LABS: URINE AMPHETAMINES SCREEN NEGATIVE; URINE BARBITURATES SCREEN NEGATIVE; URINE BENZODIAZEPINES SCREEN NEGATIVE; URINE COCAINE SCREEN NEGATIVE; URINE MARIJUANA (THC) SCREEN NEGATIVE; URINE METHADONE SCREEN NEGATIVE; URINE PHENCYCLIDINE SCREEN NEGATIVE
[2017-11-22] MEDS: HYDRALAZINE HCL INJ/PF 20 MG/1 ML SDV IV PRN (21:18)
[2017-11-22] MEDS: CEFAZOLIN 1 GM/D5W RTU 1 GM/50 ML RTUPB IV SCH (22:50)
[2017-11-22] MEDS: FAMOTIDINE 20 MG TABLET PO SCH (22:50)
[2017-11-22] MEDS: HEPARIN SOD (PORCINE) 5,000 UNIT/ML 1 ML SYRINGE SUBCUT SCH (22:50)
[2017-11-23 02:20] LABS: CREATINE KINASE MB 1.12 ng/mL (<4.55); TROPONIN I 0.052 ng/mL
[2017-11-23] MEDS: CEFAZOLIN 1 GM/D5W RTU 1 GM/50 ML RTUPB IV SCH ×3 (06:35→22:36)
[2017-11-23] MEDS: HEPARIN SOD (PORCINE) 5,000 UNIT/ML 1 ML SYRINGE SUBCUT SCH ×3 (06:35→22:40)
[2017-11-23] MEDS: HYDRALAZINE HCL INJ/PF 20 MG/1 ML SDV IV PRN (08:38)
[2017-11-23 08:44] LABS: HEMATOCRIT 34.2 % (36.0-47.0); HEMOGLOBIN 11.4 g/dL (12.0-15.5); MEAN CORPUSCULAR HEMOGLOBIN 30.1 pg (27.0-33.4); MEAN CORPUSCULAR HGB CONC 33.2 g/dL (32.0-36.0); MEAN CORPUSCULAR VOLUME 91 fl (80-97); PLATELET COUNT 232 10^3/uL (150-450); RED BLOOD COUNT 3.77 10^6/uL (3.72-5.28); RED CELL DISTRIBUTION WIDTH 16.8 % (11.5-14.0); WHITE BLOOD COUNT 8.2 10^3/uL (4.0-10.5)
--- NOTE | 2017-11-23 08:50 | EKG REPORT ---
SEVERITY:- ABNORMAL ECG - SINUS RHYTHM CONSIDER LEFT VENTRICULAR HYPERTROPHY : Confirmed by: Carmenza Ahmadi 23-Nov-2017 08:49:47
[2017-11-23 08:53] LABS: APPEARANCE,URINE SLIGHTLY-CLOUDY; BILIRUBIN,URINE NEGATIVE (NEGATIVE); COLOR,URINE YELLOW; GLUCOSE, URINE NEGATIVE (NEGATIVE); KETONES,URINE 20 mg/dL (NEGATIVE); LEUKOCYTE ESTERASE,URINE TRACE (NEGATIVE); NITRITE,URINE NEGATIVE (NEGATIVE); PROTEIN,URINE 30 mg/dL (NEGATIVE); URINE SPECIFIC GRAVITY 1.021
[2017-11-23 08:54] LABS: ANION GAP 13 (5-19); BLOOD UREA NITROGEN 16 mg/dL (7-20); CALCIUM 9.2 mg/dL (8.4-10.2); CARBON DIOXIDE 19 mmol/L (22-30); CHLORIDE 113 mmol/L (98-107); GLUCOSE 111 mg/dL (75-110); POTASSIUM 3.4 mmol/L (3.6-5.0); SODIUM 144.8 mmol/L (137-145)
[2017-11-23 09:03] LABS: CREATINE KINASE MB 1.11 ng/mL (<4.55); TROPONIN I 0.052 ng/mL
[2017-11-23] MEDS: METOPROLOL SUCCINATE 50 MG TAB.SR.24H PO SCH (09:21)
[2017-11-23] MEDS: FAMOTIDINE 20 MG TABLET PO SCH ×2 (09:22→22:43)
[2017-11-23] MEDS: DOCUSATE SODIUM 100 MG CAPSULE PO SCH ×2 (09:22→17:11)
[2017-11-23 09:48] LABS: ABSOLUTE LYMPHOCYTES# (MANUAL) 1.2 10^3/uL (0.5-4.7); ABSOLUTE MONOCYTES # (MANUAL) 0.6 10^3/uL (0.1-1.4); ABSOLUTE NEUTROPHILS# (MANUAL) 6.1 10^3/uL (1.7-8.2); BAND NEUTROPHILS % (MANUAL) 1 % (3-5); BASOPHILS % (MANUAL) 2 % (0-2); EOSINOPHILS % (MANUAL) 2 % (0-6); LYMPHOCYTES % (MANUAL) 15 % (13-45); MONOCYTES % (MANUAL) 7 % (3-13); SEGMENTED NEUTROPHILS % (MAN) 73 % (42-78); TOTAL CELLS COUNTED 100
[2017-11-23 09:49] LABS: ANISOCYTOSIS 1+; OVALOCYTES 1+; PLATELET COMMENT ADEQUATE; POIKILOCYTOSIS 1+
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
[2017-11-23] MEDS: POTASSI CL 20 MEQ/D5-1/2NS 1L 1000 ML IV PRN (20:01)
[2017-11-23] MEDS: POTASSIUM CHLORIDE 20 MEQ/15 ML UDCUP PO SCH (22:43)
[2017-11-24 06:19] LABS: ABSOLUTE BASOPHILS # (AUTO) 0.2 10^3/uL (0.0-0.2); ABSOLUTE EOSINOPHILS # (AUTO) 0.1 10^3/uL (0.0-0.6); ABSOLUTE LYMPHOCYTES (AUTO) 2.3 10^3/uL (0.5-4.7); ABSOLUTE MONOCYTES (AUTO) 0.7 10^3/uL (0.1-1.4); ABSOLUTE NEUT (AUTO) 3.7 10^3/uL (1.7-8.2); BASOPHILS % (AUTO) 2.8 % (0-2); EOSINOPHILS % (AUTO) 2.1 % (0-6); LYMPHOCYTES % (AUTO) 32.9 % (13-45); MEAN CORPUSCULAR HEMOGLOBIN 30.1 pg (27.0-33.4); MEAN CORPUSCULAR HGB CONC 33.3 g/dL (32.0-36.0); MEAN CORPUSCULAR VOLUME 91 fl (80-97); MONOCYTES % (AUTO) 9.8 % (3-13); PLATELET COUNT 225 10^3/uL (150-450); RED BLOOD COUNT 3.98 10^6/uL (3.72-5.28); RED CELL DISTRIBUTION WIDTH 17.1 % (11.5-14.0); SEGMENTED NEUTROPHILS % (AUTO) 52.4 % (42-78); TOTAL CELLS COUNTED % (AUTO) 100 %
[2017-11-24] MEDS: CEFAZOLIN 1 GM/D5W RTU 1 GM/50 ML RTUPB IV SCH (06:27)
[2017-11-24] MEDS: HEPARIN SOD (PORCINE) 5,000 UNIT/ML 1 ML SYRINGE SUBCUT SCH ×3 (06:28→21:21)
[2017-11-24 06:43] LABS: ANION GAP 7 (5-19); BLOOD UREA NITROGEN 15 mg/dL (7-20); CALCIUM 9.1 mg/dL (8.4-10.2); CARBON DIOXIDE 22 mmol/L (22-30); CHLORIDE 115 mmol/L (98-107); GLUCOSE 112 mg/dL (75-110); POTASSIUM 3.7 mmol/L (3.6-5.0)
[2017-11-24] MEDS: POTASSI CL 20 MEQ/D5-1/2NS 1L 1000 ML IV PRN ×2 (09:16→21:50)
[2017-11-24] MEDS: DOCUSATE SODIUM 100 MG CAPSULE PO SCH ×2 (09:19→17:23)
[2017-11-24] MEDS: HYDRALAZINE HCL INJ/PF 20 MG/1 ML SDV IV PRN (09:19)
[2017-11-24] MEDS: METOPROLOL SUCCINATE 50 MG TAB.SR.24H PO SCH (09:19)
[2017-11-24] MEDS: FAMOTIDINE 20 MG TABLET PO SCH ×2 (09:19→21:22)
[2017-11-24] MEDS: POTASSIUM CHLORIDE 20 MEQ/15 ML UDCUP PO SCH (09:19)
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
[2017-11-25 04:43] LABS: ABSOLUTE EOSINOPHILS # (AUTO) 0.2 10^3/uL (0.0-0.6); ABSOLUTE LYMPHOCYTES (AUTO) 2.5 10^3/uL (0.5-4.7); ABSOLUTE MONOCYTES (AUTO) 0.7 10^3/uL (0.1-1.4); ABSOLUTE NEUT (AUTO) 3.8 10^3/uL (1.7-8.2); BASOPHILS % (AUTO) 0.4 % (0-2); HEMATOCRIT 35.7 % (36.0-47.0); HEMOGLOBIN 11.8 g/dL (12.0-15.5); LYMPHOCYTES % (AUTO) 34.1 % (13-45); MEAN CORPUSCULAR HEMOGLOBIN 30.2 pg (27.0-33.4); MEAN CORPUSCULAR HGB CONC 33.1 g/dL (32.0-36.0); MEAN CORPUSCULAR VOLUME 91 fl (80-97); MONOCYTES % (AUTO) 10.2 % (3-13); PLATELET COUNT 227 10^3/uL (150-450); RED BLOOD COUNT 3.91 10^6/uL (3.72-5.28); RED CELL DISTRIBUTION WIDTH 16.9 % (11.5-14.0); SEGMENTED NEUTROPHILS % (AUTO) 52.3 % (42-78); TOTAL CELLS COUNTED % (AUTO) 100 %; WHITE BLOOD COUNT 7.2 10^3/uL (4.0-10.5)
[2017-11-25 05:10] LABS: BLOOD UREA NITROGEN 12 mg/dL (7-20); CALCIUM 8.8 mg/dL (8.4-10.2); GLUCOSE 98 mg/dL (75-110); POTASSIUM 4.3 mmol/L (3.6-5.0)
[2017-11-25 05:45] LABS: CARBON DIOXIDE 18 mmol/L (22-30); CHLORIDE 119 mmol/L (98-107); SODIUM 143.3 mmol/L (137-145)
[2017-11-25 05:48] LABS: ANION GAP 6 (5-19)
[2017-11-25] MEDS: HEPARIN SOD (PORCINE) 5,000 UNIT/ML 1 ML SYRINGE SUBCUT SCH ×3 (06:07→21:08)
[2017-11-25] MEDS ORDERED: CEFTRIAXONE 1 GM/D5W RTU 1 GM/50 ML RTUPB IV SCH (10:00)
[2017-11-25] MEDS: POTASSIUM CHLORIDE 20 MEQ/15 ML UDCUP PO SCH (10:39)
[2017-11-25] MEDS: METOPROLOL SUCCINATE 50 MG TAB.SR.24H PO SCH (10:39)
[2017-11-25] MEDS: FAMOTIDINE 20 MG TABLET PO SCH ×2 (10:39→21:08)
[2017-11-25] MEDS: DOCUSATE SODIUM 100 MG CAPSULE PO SCH ×2 (10:39→18:20)
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
[2017-11-25] MEDS: POTASSI CL 20 MEQ/D5-1/2NS 1L 1000 ML IV PRN (11:50)
[2017-11-25] MEDS: CEFTRIAXONE SODIUM 1,000 MG in NORMAL SALINE 50 ML IV SCH (11:51)
[2017-11-26] MEDS: HYDRALAZINE HCL INJ/PF 20 MG/1 ML SDV IV PRN (00:07)
[2017-11-26] MEDS: POTASSI CL 20 MEQ/D5-1/2NS 1L 1000 ML IV PRN ×2 (02:39→16:43)
[2017-11-26] MEDS: HEPARIN SOD (PORCINE) 5,000 UNIT/ML 1 ML SYRINGE SUBCUT SCH ×3 (05:28→23:03)
--- NOTE | 2017-11-26 10:00 | PDOC PROGRESS REPORT ---
Subjective Progress Note for:: 11/26/17 Subjective:: No significant event overnight. Her vitals and labs are within normal limits. Reason For Visit: ALTERED MENTAL STATUS Physical Exam Vital Signs: Temp Pulse Resp BP Pulse Ox 98.0 F 85 16 160/60 H 99 11/26/17 03:27 11/26/17 07:00 11/26/17 03:27 11/26/17 03:27 11/26/17 03:27 Intake & Output 11/25/17 11/26/17 11/27/17 06:59 06:59 06:59 Intake Total 2701 2487 Output Total 425 1000 Balance 2276 1487 Weight 52.3 kg 55.1 kg General appearance: PRESENT: no acute distress, well-developed, well-nourished Head exam: PRESENT: atraumatic, normocephalic Eye exam: PRESENT: conjunctiva pink, PERRLA. ABSENT: scleral icterus Mouth exam: PRESENT: moist, tongue midline Neck exam: ABSENT: carotid bruit, JVD, lymphadenopathy, thyromegaly Respiratory exam: PRESENT: clear to auscultation seth. ABSENT: rales, rhonchi, wheezes Cardiovascular exam: PRESENT: RRR. ABSENT: diastolic murmur, rubs, systolic murmur GI/Abdominal exam: PRESENT: normal bowel sounds, soft. ABSENT: distended, guarding, mass, organolmegaly, rebound, tenderness Rectal exam: PRESENT: deferred Extremities exam: PRESENT: full ROM. ABSENT: calf tenderness, clubbing, pedal edema Neurological exam: PRESENT: alert, awake, oriented to person, oriented to place , oriented to situation. ABSENT: motor sensory deficit Psychiatric exam: PRESENT: appropriate affect, normal mood. ABSENT: homicidal ideation, suicidal ideation Skin exam: PRESENT: dry, intact, warm. ABSENT: cyanosis, rash Results Laboratory Results: 11/25/17 04:01 11/25/17 04:01 11/22/17 11/22/17 11/23/17 19:47 19:47 01:45 Creatine Kinase 34 35 CK-MB (CK-2) 0.97 Troponin I 0.032 NT-Pro-B Natriuret Pep 11/23/17 11/23/17 11/23/17 01:45 07:35 07:35 Creatine Kinase 30 CK-MB (CK-2) 1.12 1.11 Troponin I 0.052 0.052 NT-Pro-B Natriuret Pep 11/23/17 07:35 Creatine Kinase CK-MB (CK-2) Troponin I NT-Pro-B Natriuret Pep 5690 H Impressions: Chest X-Ray 11/22/17 15:06 IMPRESSION: COPD. NO ACUTE RADIOGRAPHIC FINDING IN THE CHEST. Head CT 11/22/17 16:07 IMPRESSION: MILD CHRONIC CHANGES OF ATROPHY AND MICROVASCULAR ISCHEMIA. NO ACUTE PROCESS. EVIDENCE OF ACUTE STROKE: NO. Assessment & Plan - Diagnosis (1) Acute metabolic encephalopathy Is this a current diagnosis for this admission?: Yes Plan: Improving (2) Complicated UTI (urinary tract infection) Is this a current diagnosis for this admission?: Yes Plan: Continue ceftriaxone (3) Hypernatremia Is this a current diagnosis for this admission?: Yes Plan: Resolved (4) Hypokalemia Is this a current diagnosis for this admission?: Yes Plan: Improving (5) Insect bites of multiple sites, infected Is this a current diagnosis for this admission?: Yes
[2017-11-26] MEDS: CEFTRIAXONE SODIUM 1,000 MG in NORMAL SALINE 50 ML IV SCH (10:20)
[2017-11-26] MEDS: POTASSIUM CHLORIDE 20 MEQ/15 ML UDCUP PO SCH (10:20)
[2017-11-26] MEDS: FAMOTIDINE 20 MG TABLET PO SCH ×2 (10:20→23:01)
[2017-11-26] MEDS: DOCUSATE SODIUM 100 MG CAPSULE PO SCH ×2 (10:21→17:47)
[2017-11-26] MEDS: METOPROLOL SUCCINATE 50 MG TAB.SR.24H PO SCH (10:21)
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
[2017-11-26] MEDS: CHOLECALCIFEROL (D3) 1,000 UNIT TABLET PO SCH (17:47)
[2017-11-27 05:30] LABS: ABSOLUTE EOSINOPHILS # (AUTO) 0.1 10^3/uL (0.0-0.6); ABSOLUTE LYMPHOCYTES (AUTO) 2.1 10^3/uL (0.5-4.7); ABSOLUTE MONOCYTES (AUTO) 0.5 10^3/uL (0.1-1.4); ABSOLUTE NEUT (AUTO) 3.3 10^3/uL (1.7-8.2); BASOPHILS % (AUTO) 0.7 % (0-2); EOSINOPHILS % (AUTO) 2.2 % (0-6); HEMATOCRIT 36.4 % (36.0-47.0); HEMOGLOBIN 12.1 g/dL (12.0-15.5); LYMPHOCYTES % (AUTO) 33.9 % (13-45); MEAN CORPUSCULAR HGB CONC 33.2 g/dL (32.0-36.0); MEAN CORPUSCULAR VOLUME 90 fl (80-97); MONOCYTES % (AUTO) 8.1 % (3-13); PLATELET COUNT 232 10^3/uL (150-450); RED BLOOD COUNT 4.03 10^6/uL (3.72-5.28); RED CELL DISTRIBUTION WIDTH 16.9 % (11.5-14.0); SEGMENTED NEUTROPHILS % (AUTO) 55.1 % (42-78); TOTAL CELLS COUNTED % (AUTO) 100 %; WHITE BLOOD COUNT 6.1 10^3/uL (4.0-10.5)
[2017-11-27 05:36] LABS: BLOOD UREA NITROGEN 12 mg/dL (7-20); CARBON DIOXIDE 25 mmol/L (22-30); CHLORIDE 108 mmol/L (98-107); GLUCOSE 101 mg/dL (75-110); POTASSIUM 4.5 mmol/L (3.6-5.0); SODIUM 137.4 mmol/L (137-145)
[2017-11-27 05:40] LABS: ANION GAP 4 (5-19)
[2017-11-27] MEDS: HEPARIN SOD (PORCINE) 5,000 UNIT/ML 1 ML SYRINGE SUBCUT SCH ×3 (06:09→22:36)
--- NOTE | 2017-11-27 08:58 | PDOC PROGRESS REPORT ---
Subjective Progress Note for:: 11/27/17 Subjective:: Patient has been resting comfortably. Vital signs are stable except she has mild isolated systolic hypertension for which did for her benazepril 5 mg p.o. daily on top of metoprolol succinate 100 mg p.o. daily Reason For Visit: ALTERED MENTAL STATUS Physical Exam Vital Signs: Temp Pulse Resp BP Pulse Ox 98.4 F 84 16 184/70 H 99 11/27/17 07:49 11/27/17 07:49 11/27/17 07:49 11/27/17 07:49 11/27/17 07:49 Intake & Output 11/26/17 11/27/17 11/28/17 06:59 06:59 06:59 Intake Total 2487 1250 Output Total 1000 1250 Balance 1487 0 Weight 55.1 kg 56.1 kg General appearance: PRESENT: no acute distress Head exam: PRESENT: atraumatic Mouth exam: PRESENT: moist Neck exam: ABSENT: carotid bruit, JVD, lymphadenopathy, thyromegaly Respiratory exam: PRESENT: clear to auscultation seth. ABSENT: rales, rhonchi, wheezes Cardiovascular exam: PRESENT: RRR. ABSENT: diastolic murmur, rubs, systolic murmur GI/Abdominal exam: PRESENT: normal bowel sounds, soft. ABSENT: distended, guarding, mass, organolmegaly, rebound, tenderness Results Laboratory Results: 11/27/17 04:37 11/27/17 04:37 11/27/17 11/27/17 04:37 04:37 WBC 6.1 RBC 4.03 Hgb 12.1 Hct 36.4 MCV 90 MCH 30.0 MCHC 33.2 RDW 16.9 H Plt Count 232 Seg Neutrophils % 55.1 Lymphocytes % 33.9 Monocytes % 8.1 Eosinophils % 2.2 Basophils % 0.7 Absolute Neutrophils 3.3 Absolute Lymphocytes 2.1 Absolute Monocytes 0.5 Absolute Eosinophils 0.1 Absolute Basophils 0.0 Sodium 137.4 Potassium 4.5 Chloride 108 H Carbon Dioxide 25 Anion Gap 4 L BUN 12 Creatinine 0.63 Est GFR ( Amer) > 60 Est GFR (Non-Af Amer) > 60 Glucose 101 Calcium 9.0 11/22/17 11/22/17 11/23/17 19:47 19:47 01:45 Creatine Kinase 34 35 CK-MB (CK-2) 0.97 Troponin I 0.032 NT-Pro-B Natriuret Pep 11/23/17 11/23/17 11/23/17 01:45 07:35 07:35 Creatine Kinase 30 CK-MB (CK-2) 1.12 1.11 Troponin I 0.052 0.052 NT-Pro-B Natriuret Pep 11/23/17 07:35 Creatine Kinase CK-MB (CK-2) Troponin I NT-Pro-B Natriuret Pep 5690 H Impressions: Chest X-Ray 11/22/17 15:06 IMPRESSION: COPD. NO ACUTE RADIOGRAPHIC FINDING IN THE CHEST. Head CT 11/22/17 16:07 IMPRESSION: MILD CHRONIC CHANGES OF ATROPHY AND MICROVASCULAR ISCHEMIA. NO ACUTE PROCESS. EVIDENCE OF ACUTE STROKE: NO. Assessment & Plan - Diagnosis (1) Acute metabolic encephalopathy Is this a current diagnosis for this admission?: Yes Plan: Improving (2) Complicated UTI (urinary tract infection) Is this a current diagnosis for this admission?: Yes Plan: Continue ceftriaxone (3) Hypernatremia Is this a current diagnosis for this admission?: Yes Plan: Resolved (4) Hypokalemia Is this a current diagnosis for this admission?: Yes Plan: Improving (5) Insect bites of multiple sites, infected Is this a current diagnosis for this admission?: Yes Plan: Continue antibiotics
[2017-11-27] MEDS: CEFTRIAXONE SODIUM 1,000 MG in NORMAL SALINE 50 ML IV SCH (09:45)
[2017-11-27] MEDS: METOPROLOL SUCCINATE 50 MG TAB.SR.24H PO SCH (09:46)
[2017-11-27] MEDS: CHOLECALCIFEROL (D3) 1,000 UNIT TABLET PO SCH (09:46)
[2017-11-27] MEDS: FAMOTIDINE 20 MG TABLET PO SCH ×2 (09:46→22:38)
[2017-11-27] MEDS: DOCUSATE SODIUM 100 MG CAPSULE PO SCH ×2 (09:46→17:10)
[2017-11-27] MEDS: POTASSIUM CHLORIDE 20 MEQ/15 ML UDCUP PO SCH (09:46)
[2017-11-27] MEDS: HYDRALAZINE HCL INJ/PF 20 MG/1 ML SDV IV PRN (09:50)
[2017-11-27] MEDS ORDERED: LISINOPRIL 10 MG TABLET ONE (09:51)
[2017-11-27] MEDS: LISINOPRIL 5 MG TABLET PO SCH (09:57)
[2017-11-28] MEDS: HYDRALAZINE HCL INJ/PF 20 MG/1 ML SDV IV PRN (03:42)
[2017-11-28] MEDS: HEPARIN SOD (PORCINE) 5,000 UNIT/ML 1 ML SYRINGE SUBCUT SCH ×3 (06:10→22:47)
--- NOTE | 2017-11-28 10:15 | PDOC PROGRESS REPORT ---
Subjective Subjective:: This is a 1 years old female patient admitted for altered mental status. Patient has been managed also for complicated UTI with ceftriaxone for the last 3 days. Currently patient is at her baseline. Reason For Visit: ALTERED MENTAL STATUS Physical Exam Vital Signs: Temp Pulse Resp BP Pulse Ox 97.4 F 92 17 137/41 H 98 11/28/17 07:41 11/28/17 07:41 11/28/17 07:41 11/28/17 07:41 11/28/17 07:41 Intake & Output 11/27/17 11/28/17 11/29/17 06:59 06:59 06:59 Intake Total 1250 50 Output Total 1250 850 Balance 0 -800 Weight 56.1 kg 55.5 kg General appearance: PRESENT: no acute distress Eye exam: PRESENT: conjunctiva pink Mouth exam: PRESENT: moist Respiratory exam: PRESENT: clear to auscultation seth. ABSENT: rales, rhonchi, wheezes Cardiovascular exam: PRESENT: RRR. ABSENT: diastolic murmur, rubs, systolic murmur GI/Abdominal exam: PRESENT: normal bowel sounds, soft. ABSENT: distended, guarding, mass, organolmegaly, rebound, tenderness Results Laboratory Results: 11/27/17 04:37 11/27/17 04:37 11/22/17 19:15 Blood Blood Culture - Final NO GROWTH IN 5 DAYS 11/22/17 11/22/17 11/23/17 19:47 19:47 01:45 Creatine Kinase 34 35 CK-MB (CK-2) 0.97 Troponin I 0.032 NT-Pro-B Natriuret Pep 11/23/17 11/23/17 11/23/17 01:45 07:35 07:35 Creatine Kinase 30 CK-MB (CK-2) 1.12 1.11 Troponin I 0.052 0.052 NT-Pro-B Natriuret Pep 11/23/17 07:35 Creatine Kinase CK-MB (CK-2) Troponin I NT-Pro-B Natriuret Pep 5690 H Impressions: Chest X-Ray 11/22/17 15:06 IMPRESSION: COPD. NO ACUTE RADIOGRAPHIC FINDING IN THE CHEST. Head CT 11/22/17 16:07 IMPRESSION: MILD CHRONIC CHANGES OF ATROPHY AND MICROVASCULAR ISCHEMIA. NO ACUTE PROCESS. EVIDENCE OF ACUTE STROKE: NO. Assessment & Plan - Diagnosis (1) Acute metabolic encephalopathy Is this a current diagnosis for this admission?: Yes Plan: Improving (2) Complicated UTI (urinary tract infection) Is this a current diagnosis for this admission?: Yes Plan: Treated (3) Hypernatremia Is this a current diagnosis for this admission?: Yes Plan: Resolved (4) Hypokalemia Is this a current diagnosis for this admission?: Yes Plan: Improving (5) Insect bites of multiple sites, infected Is this a current diagnosis for this admission?: Yes Plan: Continue antibiotics
[2017-11-28] MEDS: POTASSIUM CHLORIDE 20 MEQ/15 ML UDCUP PO SCH (10:40)
[2017-11-28] MEDS: METOPROLOL SUCCINATE 50 MG TAB.SR.24H PO SCH (10:44)
[2017-11-28] MEDS: LISINOPRIL 5 MG TABLET PO SCH (10:44)
[2017-11-28] MEDS: DOCUSATE SODIUM 100 MG CAPSULE PO SCH ×2 (10:44→17:01)
[2017-11-28] MEDS: FAMOTIDINE 20 MG TABLET PO SCH ×2 (10:44→22:48)
[2017-11-28] MEDS: CHOLECALCIFEROL (D3) 1,000 UNIT TABLET PO SCH (10:44)
[2017-11-29] MEDS: HEPARIN SOD (PORCINE) 5,000 UNIT/ML 1 ML SYRINGE SUBCUT SCH ×3 (05:51→23:22)
[2017-11-29] MEDS: POTASSIUM CHLORIDE 20 MEQ/15 ML UDCUP PO SCH (09:02)
[2017-11-29] MEDS: DOCUSATE SODIUM 100 MG CAPSULE PO SCH ×2 (09:02→17:48)
[2017-11-29] MEDS: LISINOPRIL 5 MG TABLET PO SCH (09:02)
[2017-11-29] MEDS: FAMOTIDINE 20 MG TABLET PO SCH ×2 (09:02→23:22)
[2017-11-29] MEDS: CHOLECALCIFEROL (D3) 1,000 UNIT TABLET PO SCH (09:02)
[2017-11-29] MEDS: METOPROLOL SUCCINATE 50 MG TAB.SR.24H PO SCH (09:03)
--- NOTE | 2017-11-29 11:48 | PDOC PROGRESS REPORT ---
Subjective Progress Note for:: 11/29/17 Subjective:: No significant change overnight. No new complaints. Reason For Visit: ALTERED MENTAL STATUS Physical Exam Vital Signs: Temp Pulse Resp BP Pulse Ox 97.6 F 71 19 146/79 H 98 11/29/17 08:22 11/29/17 08:22 11/29/17 08:22 11/29/17 08:22 11/29/17 08:22 Intake & Output 11/28/17 11/29/17 11/30/17 06:59 06:59 06:59 Intake Total 50 354 Output Total 850 500 Balance -800 -146 Weight 55.5 kg 55 kg General appearance: PRESENT: no acute distress Head exam: PRESENT: atraumatic Eye exam: PRESENT: conjunctiva pink Mouth exam: PRESENT: moist Neck exam: ABSENT: carotid bruit, JVD, lymphadenopathy, thyromegaly Respiratory exam: PRESENT: clear to auscultation steh. ABSENT: rales, rhonchi, wheezes Cardiovascular exam: PRESENT: RRR. ABSENT: diastolic murmur, rubs, systolic murmur Results Laboratory Results: 11/27/17 04:37 11/27/17 04:37 11/22/17 11/22/17 11/23/17 19:47 19:47 01:45 Creatine Kinase 34 35 CK-MB (CK-2) 0.97 Troponin I 0.032 NT-Pro-B Natriuret Pep 11/23/17 11/23/17 11/23/17 01:45 07:35 07:35 Creatine Kinase 30 CK-MB (CK-2) 1.12 1.11 Troponin I 0.052 0.052 NT-Pro-B Natriuret Pep 11/23/17 07:35 Creatine Kinase CK-MB (CK-2) Troponin I NT-Pro-B Natriuret Pep 5690 H Impressions: Chest X-Ray 11/22/17 15:06 IMPRESSION: COPD. NO ACUTE RADIOGRAPHIC FINDING IN THE CHEST. Head CT 11/22/17 16:07 IMPRESSION: MILD CHRONIC CHANGES OF ATROPHY AND MICROVASCULAR ISCHEMIA. NO ACUTE PROCESS. EVIDENCE OF ACUTE STROKE: NO. Assessment & Plan - Diagnosis (1) Acute metabolic encephalopathy Is this a current diagnosis for this admission?: Yes Plan: Improving (2) Complicated UTI (urinary tract infection) Is this a current diagnosis for this admission?: Yes Plan: Treated (3) Hypernatremia Is this a current diagnosis for this admission?: Yes Plan: Resolved (4) Hypokalemia Is this a current diagnosis for this admission?: Yes Plan: Improving (5) Insect bites of multiple sites, infected Is this a current diagnosis for this admission?: Yes Plan: Continue antibiotics
[2017-11-30] MEDS: HEPARIN SOD (PORCINE) 5,000 UNIT/ML 1 ML SYRINGE SUBCUT SCH ×3 (06:13→22:52)
[2017-11-30] MEDS: DOCUSATE SODIUM 100 MG CAPSULE PO SCH ×2 (11:53→22:52)
[2017-11-30] MEDS: METOPROLOL SUCCINATE 50 MG TAB.SR.24H PO SCH (11:53)
[2017-11-30] MEDS: CHOLECALCIFEROL (D3) 1,000 UNIT TABLET PO SCH (11:54)
[2017-11-30] MEDS: POTASSIUM CHLORIDE 20 MEQ/15 ML UDCUP PO SCH (11:54)
[2017-11-30] MEDS: FAMOTIDINE 20 MG TABLET PO SCH ×2 (11:54→22:53)
[2017-11-30] MEDS: LISINOPRIL 5 MG TABLET PO SCH (12:13)
--- NOTE | 2017-11-30 15:00 | PDOC PROGRESS REPORT ---
Subjective Progress Note for:: 11/30/17 Subjective:: No significant change overnight. Reason For Visit: ALTERED MENTAL STATUS Physical Exam Vital Signs: Temp Pulse Resp BP Pulse Ox 98.3 F 63 18 148/44 H 99 11/30/17 07:21 11/30/17 07:21 11/30/17 07:21 11/30/17 07:21 11/30/17 07:21 Intake & Output 11/29/17 11/30/17 12/01/17 06:59 06:59 06:59 Intake Total 354 510 222 Output Total 500 725 150 Balance -146 -215 72 Weight 55 kg 54.3 kg General appearance: PRESENT: no acute distress Head exam: PRESENT: atraumatic Eye exam: PRESENT: conjunctiva pink Mouth exam: PRESENT: moist Neck exam: ABSENT: carotid bruit, JVD, lymphadenopathy, thyromegaly Respiratory exam: PRESENT: clear to auscultation seth. ABSENT: rales, rhonchi, wheezes Cardiovascular exam: PRESENT: RRR. ABSENT: diastolic murmur, rubs, systolic murmur GI/Abdominal exam: PRESENT: normal bowel sounds, soft. ABSENT: distended, guarding, mass, organolmegaly, rebound, tenderness Neurological exam: PRESENT: alert, awake Results Laboratory Results: 11/27/17 04:37 11/27/17 04:37 11/22/17 11/22/17 11/23/17 19:47 19:47 01:45 Creatine Kinase 34 35 CK-MB (CK-2) 0.97 Troponin I 0.032 NT-Pro-B Natriuret Pep 11/23/17 11/23/17 11/23/17 01:45 07:35 07:35 Creatine Kinase 30 CK-MB (CK-2) 1.12 1.11 Troponin I 0.052 0.052 NT-Pro-B Natriuret Pep 11/23/17 07:35 Creatine Kinase CK-MB (CK-2) Troponin I NT-Pro-B Natriuret Pep 5690 H Impressions: Chest X-Ray 11/22/17 15:06 IMPRESSION: COPD. NO ACUTE RADIOGRAPHIC FINDING IN THE CHEST. Head CT 11/22/17 16:07 IMPRESSION: MILD CHRONIC CHANGES OF ATROPHY AND MICROVASCULAR ISCHEMIA. NO ACUTE PROCESS. EVIDENCE OF ACUTE STROKE: NO. Assessment & Plan - Diagnosis (1) Acute metabolic encephalopathy Is this a current diagnosis for this admission?: Yes Plan: Improving (2) Complicated UTI (urinary tract infection) Is this a current diagnosis for this admission?: Yes Plan: Treated (3) Hypernatremia Is this a current diagnosis for this admission?: Yes Plan: Resolved (4) Hypokalemia Is this a current diagnosis for this admission?: Yes Plan: Improving (5) Insect bites of multiple sites, infected Is this a current diagnosis for this admission?: Yes Plan: Continue antibiotics
[2017-12-01] MEDS: HEPARIN SOD (PORCINE) 5,000 UNIT/ML 1 ML SYRINGE SUBCUT SCH ×3 (05:33→22:56)
[2017-12-01] MEDS: DOCUSATE SODIUM 100 MG CAPSULE PO SCH ×2 (09:21→18:19)
[2017-12-01] MEDS: LISINOPRIL 5 MG TABLET PO SCH (09:23)
[2017-12-01] MEDS: POTASSIUM CHLORIDE 20 MEQ/15 ML UDCUP PO SCH (09:23)
[2017-12-01] MEDS: CHOLECALCIFEROL (D3) 1,000 UNIT TABLET PO SCH (09:23)
[2017-12-01] MEDS: FAMOTIDINE 20 MG TABLET PO SCH ×2 (09:23→22:56)
[2017-12-01] MEDS: METOPROLOL SUCCINATE 50 MG TAB.SR.24H PO SCH (09:23)
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
[2017-12-02 05:03] LABS: ABSOLUTE EOSINOPHILS # (AUTO) 0.2 10^3/uL (0.0-0.6); ABSOLUTE LYMPHOCYTES (AUTO) 2.9 10^3/uL (0.5-4.7); ABSOLUTE MONOCYTES (AUTO) 0.6 10^3/uL (0.1-1.4); ABSOLUTE NEUT (AUTO) 2.8 10^3/uL (1.7-8.2); BASOPHILS % (AUTO) 0.6 % (0-2); EOSINOPHILS % (AUTO) 2.8 % (0-6); HEMATOCRIT 34.4 % (36.0-47.0); HEMOGLOBIN 11.7 g/dL (12.0-15.5); LYMPHOCYTES % (AUTO) 44.7 % (13-45); MEAN CORPUSCULAR HEMOGLOBIN 30.8 pg (27.0-33.4); MEAN CORPUSCULAR VOLUME 91 fl (80-97); MONOCYTES % (AUTO) 8.7 % (3-13); PLATELET COUNT 222 10^3/uL (150-450); RED CELL DISTRIBUTION WIDTH 16.5 % (11.5-14.0); SEGMENTED NEUTROPHILS % (AUTO) 43.2 % (42-78); TOTAL CELLS COUNTED % (AUTO) 100 %; WHITE BLOOD COUNT 6.5 10^3/uL (4.0-10.5)
[2017-12-02 05:21] LABS: ALANINE AMINOTRANSFERASE 18 U/L (9-52); ALBUMIN 2.9 g/dL (3.5-5.0); ALKALINE PHOSPHATASE 51 U/L (38-126); ASPARTATE AMINO TRANSFERASE 34 U/L (14-36); BILIRUBIN,DIRECT 0.4 mg/dL (0.0-0.4); BILIRUBIN,TOTAL 0.5 mg/dL (0.2-1.3); BLOOD UREA NITROGEN 23 mg/dL (7-20); CALCIUM 9.1 mg/dL (8.4-10.2); GLUCOSE 96 mg/dL (75-110); POTASSIUM 4.9 mmol/L (3.6-5.0)
[2017-12-02 05:26] LABS: CARBON DIOXIDE 30 mmol/L (22-30); CHLORIDE 104 mmol/L (98-107); SODIUM 136.2 mmol/L (137-145)
[2017-12-02 05:27] LABS: ANION GAP 2 (5-19)
[2017-12-02] MEDS: HEPARIN SOD (PORCINE) 5,000 UNIT/ML 1 ML SYRINGE SUBCUT SCH ×3 (06:14→22:47)
[2017-12-02] MEDS: FAMOTIDINE 20 MG TABLET PO SCH ×2 (10:23→22:47)
[2017-12-02] MEDS: CHOLECALCIFEROL (D3) 1,000 UNIT TABLET PO SCH (10:23)
[2017-12-02] MEDS: LISINOPRIL 5 MG TABLET PO SCH (10:23)
[2017-12-02] MEDS: METOPROLOL SUCCINATE 50 MG TAB.SR.24H PO SCH (10:23)
[2017-12-02] MEDS: POTASSIUM CHLORIDE 20 MEQ/15 ML UDCUP PO SCH (10:23)
[2017-12-02] MEDS: DOCUSATE SODIUM 100 MG CAPSULE PO SCH ×2 (10:23→17:32)
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
[2017-12-03] MEDS: HEPARIN SOD (PORCINE) 5,000 UNIT/ML 1 ML SYRINGE SUBCUT SCH ×3 (05:43→22:21)
[2017-12-03 05:54] LABS: ABSOLUTE BASOPHILS # (AUTO) 0.1 10^3/uL (0.0-0.2); ABSOLUTE EOSINOPHILS # (AUTO) 0.1 10^3/uL (0.0-0.6); ABSOLUTE LYMPHOCYTES (AUTO) 2.4 10^3/uL (0.5-4.7); ABSOLUTE MONOCYTES (AUTO) 0.6 10^3/uL (0.1-1.4); ABSOLUTE NEUT (AUTO) 3.3 10^3/uL (1.7-8.2); BASOPHILS % (AUTO) 0.9 % (0-2); EOSINOPHILS % (AUTO) 2.1 % (0-6); HEMATOCRIT 38.6 % (36.0-47.0); HEMOGLOBIN 12.9 g/dL (12.0-15.5); LYMPHOCYTES % (AUTO) 36.9 % (13-45); MEAN CORPUSCULAR HEMOGLOBIN 30.2 pg (27.0-33.4); MEAN CORPUSCULAR HGB CONC 33.3 g/dL (32.0-36.0); MEAN CORPUSCULAR VOLUME 91 fl (80-97); PLATELET COUNT 229 10^3/uL (150-450); RED BLOOD COUNT 4.26 10^6/uL (3.72-5.28); RED CELL DISTRIBUTION WIDTH 16.5 % (11.5-14.0); SEGMENTED NEUTROPHILS % (AUTO) 51.1 % (42-78); TOTAL CELLS COUNTED % (AUTO) 100 %; WHITE BLOOD COUNT 6.4 10^3/uL (4.0-10.5)
[2017-12-03 06:01] LABS: ALANINE AMINOTRANSFERASE 14 U/L (9-52); ALBUMIN 3.4 g/dL (3.5-5.0); ALKALINE PHOSPHATASE 69 U/L (38-126); ANION GAP 6 (5-19); ASPARTATE AMINO TRANSFERASE 40 U/L (14-36); BILIRUBIN,DIRECT 0.4 mg/dL (0.0-0.4); BILIRUBIN,TOTAL 0.5 mg/dL (0.2-1.3); BLOOD UREA NITROGEN 19 mg/dL (7-20); CALCIUM 9.6 mg/dL (8.4-10.2); CARBON DIOXIDE 29 mmol/L (22-30); CHLORIDE 103 mmol/L (98-107); GLUCOSE 103 mg/dL (75-110); POTASSIUM 4.7 mmol/L (3.6-5.0); SODIUM 138.2 mmol/L (137-145); TOTAL PROTEIN 6.8 g/dL (6.3-8.2)
[2017-12-03] MEDS: FAMOTIDINE 20 MG TABLET PO SCH ×2 (09:34→22:21)
[2017-12-03] MEDS: METOPROLOL SUCCINATE 50 MG TAB.SR.24H PO SCH (09:34)
[2017-12-03] MEDS: LISINOPRIL 5 MG TABLET PO SCH (09:34)
[2017-12-03] MEDS: POTASSIUM CHLORIDE 20 MEQ/15 ML UDCUP PO SCH (09:34)
[2017-12-03] MEDS: CHOLECALCIFEROL (D3) 1,000 UNIT TABLET PO SCH (09:36)
[2017-12-03] MEDS: DOCUSATE SODIUM 100 MG CAPSULE PO SCH ×2 (09:36→17:55)
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
[2017-12-04] MEDS: HEPARIN SOD (PORCINE) 5,000 UNIT/ML 1 ML SYRINGE SUBCUT SCH ×2 (06:30→14:23)
[2017-12-04] MEDS: METOPROLOL SUCCINATE 50 MG TAB.SR.24H PO SCH (09:23)
[2017-12-04] MEDS: LISINOPRIL 5 MG TABLET PO SCH (09:23)
[2017-12-04] MEDS: CHOLECALCIFEROL (D3) 1,000 UNIT TABLET PO SCH (09:23)
[2017-12-04] MEDS: POTASSIUM CHLORIDE 20 MEQ/15 ML UDCUP PO SCH (09:23)
[2017-12-04] MEDS: DOCUSATE SODIUM 100 MG CAPSULE PO SCH ×2 (09:23→18:47)
[2017-12-04] MEDS: FAMOTIDINE 20 MG TABLET PO SCH (09:23)
[2017-12-04 16:40] VITALS: BP 118/95
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
== END 2017-12-04 19:52 | DRG 689 ==
LOC: ER 14:58 → EH 17:40 → 3W 22:22
PROVIDERS: ADMIT Internal Medicine; ATTEND Internal Medicine
DX: N39.0 Urinary tract infection, site not specified (principal); G93.41 Metabolic encephalopathy; F03.91 Unspecified dementia, unspecified severity, with behavioral disturbance; E87.0 Hyperosmolality and hypernatremia; T14.8XXA Other injury of unspecified body region, initial encounter; L08.9 Local infection of the skin and subcutaneous tissue, unspecified; I25.10 Atherosclerotic heart disease of native coronary artery without angina pectoris; E78.5 Hyperlipidemia, unspecified; E87.6 Hypokalemia; I73.9 Peripheral vascular disease, unspecified; M19.90 Unspecified osteoarthritis, unspecified site; W57.XXXA Bitten or stung by nonvenomous insect and other nonvenomous arthropods, initial encounter; F32.9 Major depressive disorder, single episode, unspecified; Z79.899 Other long term (current) drug therapy; Z90.49 Acquired absence of other specified parts of digestive tract; Z95.5 Presence of coronary angioplasty implant and graft; Z91.012 Allergy to eggs; Y93.9 Activity, unspecified; Y92.017 Garden or yard in single-family (private) house as the place of occurrence of the external cause
CPT/HCPCS: 36415; 51702; 70450; 71045; 80048; 80053; 80307; 81001; 82550; 82553; 83036; 83605; 83735; 83880; 84443; 84484; 85025; 87040; 87177; 87493; 93005; 93010; 96360; 99285; G8996-GN; G8997-GN; G8998-GN; J0360; J0690; J0696; J1644; J3480; J3490; J7040

== ENCOUNTER → 2017-12-30 | Outpatient (CLI) | payer MEDICARE, OTHER ==
--- NOTE | 2017-12-30 13:12 | RADIOLOGY REPORT (SQ) ---
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 TECHNIQUE: Axial images acquired through the brain without intravenous contrast. Images reviewed wi th bone, brain and subdural windows. Additional sagittal and coronal reconstructions were generated. Images stored on PACS. All CT scanners at this facility use dose modulation, iterative reconstruction, and/or weight based d osing when appropriate to reduce radiation dose to as low as reasonably achievable (ALARA). [facility]: Dose Right [facility]: CareDose [facility]: Dose Right [facility]: Teradose 4D [facility]: Telovations RADIATION DOSE: CT Rad equipment meets quality standard of care and radiation dose reduction techniq ues were employed. CTDIvol: 48.6 mGy. DLP: 930 mGy-cm.mGy. LIMITATIONS: None. FINDINGS: VENTRICLES: Prominent. CEREBRUM: No masses. No hemorrhage. No midline shift. Areas of low density in the white matter mos t likely due to chronic micro-vascular ischemic change. No evidence for acute infarction. CEREBELLUM: No masses. No hemorrhage. No alteration of density. No evidence for acute infarction. EXTRAAXIAL SPACES: Age-related involutional change. No fluid collections. No masses. ORBITS AND GLOBE: No intra- or extraconal masses. Normal contour of globe without masses. CALVARIUM: No fracture. PARANASAL SINUSES: No fluid or mucosal thickening. SOFT TISSUES: No mass or hematoma. OTHER: No other significant finding. IMPRESSION: CHRONIC CHANGES OF ATROPHY AND MICROVASCULAR ISCHEMIA. NO ACUTE PROCESS. EVIDENCE OF ACUTE STROKE: NO. TECHNICAL DOCUMENTATION: JOB ID: [id number] Quality ID # [id number]: Final reports with documentation of one or more dose reduction techniques (e.g., Au tomated exposure control, adjustment of the mA and/or kV according to patient size, use of iterative reconstruction technique) 2010 [employer]- All Rights Reserved Reading location - IP/workstation name: [email or web address]
== END ==
LOC: RAD 09:57
PROVIDERS: ATTEND Family Medicine
DX: F06.8 Other specified mental disorders due to known physiological condition (principal)
CPT/HCPCS: 70450

== ENCOUNTER → 2018-01-22 | Outpatient (CLI) | payer MEDICARE, OTHER ==
--- NOTE | 2018-01-22 13:13 | RADIOLOGY REPORT (SQ) ---
EXAM DESCRIPTION: KNEE LEFT 2 VIEWS COMPLETED DATE/TIME: 01/22/2018 11:35 am REASON FOR STUDY: LT KNEE PAIN COMPARE WITH MRI COMPARISON: None. NUMBER OF VIEWS: Two views left knee, AP and hyper flexed lateral. LIMITATIONS: See below. FINDINGS: Osteopenic. No effusion or fracture evident. Osteopenia and external artifact somewhat l imits. Mild spurring, DJD. Otherwise limited exam. OTHER: No other significant finding. IMPRESSION: No acute findings. Osteopenic, limited radiographs. TECHNICAL DOCUMENTATION: JOB ID: [id number] Reading location - IP/workstation name: [email or web address]
--- NOTE | 2018-01-22 13:33 | RADIOLOGY REPORT (SQ) ---
EXAM DESCRIPTION: MRI LT LOWER JOINT WITHOUT COMPLETED DATE/TIME: 01/22/2018 11:23 am REASON FOR STUDY: LEFT KNEE PAIN (M25.562) M25.562 PAIN IN LEFT KNEE COMPARISON: Left knee two views 01/22/2018 TECHNIQUE: Leftknee images acquired and stored on PACS. Multiplanar images include fat sensitive se quences as T1, water sensitive sequences as FST2 or STIR, cartilage sensitive sequences as FSPD, and gradient echo sequences. LIMITATIONS: The left knee is contracted with fixed flexion at 90. Rapid sequence imaging was perf ormed, patient unable to tolerate standard scanning. FINDINGS: JOINT AND BURSAE: No effusion. BONE CORTEX AND MARROW: No alteration of signal to suggest marrow replacement. No worrisome bone lesi ons. No occult fracture. ACL: Intact. No degeneration or ganglion cyst. PCL: Intact. MCL: Intact. No periligamentous edema or fluid. LCL: Intact. No periligamentous edema or fluid. MEDIAL MENISCUS: Grossly intact LATERAL MENISCUS: Grossly intact MEDIAL COMPARTMENT: Cartilage preserved. No bone bruises or reactive marrow edema. No osteophytes. LATERAL COMPARTMENT: Cartilage preserved. No bone bruises or reactive marrow edema. No osteophytes. PATELLA: No chondromalacia. No subchondral cysts. Medial and lateral retinacula intact. EXTENSOR MECHANISM: Intact. Quadriceps and patella tendons normal. SOFT TISSUES: Adjacent muscles and subcutaneous tissues normal. Normal flow void in popliteal artery and vein. OTHER: No other significant finding. IMPRESSION: Limited negative study. No joint effusion. No bone marrow signal abnormalities worriso me for occult fracture or aggressive marrow replacement process or metastatic disease. No internal d erangement TECHNICAL DOCUMENTATION: JOB ID: [id number] 6585[employer]- All Rights Reserved Reading location - IP/workstation name: [email or web address]
== END ==
LOC: RAD 10:15
PROVIDERS: ATTEND Family Medicine
DX: M25.562 Pain in left knee (principal)

== ENCOUNTER 2018-05-18 01:21 | Emergency (ER) | payer MEDICARE, OTHER ==
--- NOTE | 2018-05-18 01:52 | ER Document Report ---
ED Extremity Problem, Upper - General Chief Complaint: Elbow Injury Stated Complaint: ELBOW PAIN Time Seen by Provider: 05/18/18 01:50 Primary Care Provider: KELLY LESLIE DO [Primary Care Provider] - Follow up as needed TRAVEL OUTSIDE OF THE [place] IN LAST 30 DAYS: No - Related Data Allergies/Adverse Reactions: egg Allergy (Verified 11/22/17 15:38) Egg Derived Allergy (Verified 11/22/17 15:38) egg yolk Allergy (Verified 11/22/17 15:38) Past Medical History - Social History Smoking Status: Unknown if Ever Smoked Family History: None Patient has suicidal ideation: No Patient has homicidal ideation: No - Past Medical History Cardiac Medical History: Reports: Hx Coronary Artery Disease, Hx Hypercholesterolemia, Hx Peripheral Vascular Disease Denies: Hx Heart Attack, Hx Hypertension Pulmonary Medical History: Denies: Hx Asthma, Hx Bronchitis, Hx COPD, Hx Pneumonia, Hx Tuberculosis Neurological Medical History: Denies: Hx Cerebrovascular Accident, Hx Seizures Renal/ Medical History: Reports: Hx Kidney Stones. Denies: Hx Peritoneal Dialysis Musculoskeletal Medical History: Reports Hx Arthritis Psychiatric Medical History: Reports: Hx Depression Past Surgical History: Reports: Hx Appendectomy, Hx Cardiac Catheterization - stents, Hx Cardiac Surgery - stent, Hx Cholecystectomy, Hx Coronary Stent, Hx Herniorrhaphy - Umbilical hernia, Hx Hysterectomy, Hx Oral Surgery, Hx Orthopedic Surgery - L1 vertebroplasty, Hx Umbilical Hernia, Hx Vascular Surgery - Aortobiiliac iliac stent within an abdominal aortic aneurysm - Immunizations Immunizations up to date: Yes Hx Diphtheria, Pertussis, Tetanus Vaccination: Yes Hx Pneumococcal Vaccination: 03/16/03 Physical Exam - Vital signs Vitals: Temp Pulse Resp BP Pulse Ox 97.3 F 58 L 16 143/44 H 97 05/18/18 01:24 05/18/18 01:24 05/18/18 01:24 05/18/18 01:24 05/18/18 01:24 Course - Vital Signs Vital signs: Temp Pulse Resp BP Pulse Ox 97.3 F 58 L 16 143/44 H 97 05/18/18 01:24 05/18/18 01:24 05/18/18 01:24 05/18/18 01:24 05/18/18 01:24 Discharge - Discharge Referrals: KELLY LESLIE DO [Primary Care Provider] - Follow up as needed
--- NOTE | 2018-05-18 02:53 | RADIOLOGY REPORT (SQ) ---
EXAM DESCRIPTION: XR ELBOW 3 VIEWS COMPLETED DATE/TME: 05/18/2018 01:32 CLINICAL HISTORY: 82 years, Female, pain COMPARISON: None. NUMBER OF VIEWS: 4 TECHNIQUE: 4 view left elbow LIMITATIONS: None. FINDINGS: Osteopenia. Negative for acute fracture or dislocation. No evidence for joint effusion. IMPRESSION: Osteopenia. Remainder unremarkable copyright 2010 [employer]- All Rights Reserved
--- NOTE | 2018-05-18 04:45 | ER Document Report ---
HPI - HPI Patient complains to provider of: Left elbow pain Time Seen by Provider: 05/18/18 01:50 Pain Level: 4 Context: Patient is a 82-year-old female presents to the emergency department via EMS for left elbow pain. Per EMS patient has severe dementia and is taking care of at home by her family. According to EMS family was a wheelchair rolling the patient into the bathroom when her left elbow was accidentally struck on the door frame. States patient was complaining of pain which is why 911 was alerted. Per EMS patient's family is collecting the patient's home medications and going to present to the emergency room. Patient is only alert to her name although interactive and talking well with staff. Patient is stating that she has generalized pain in her low elbow. Patient is unable to tell me the date but does know that she is in the hospital and states "my hit my elbow on the door." PER EMS some discoloration noted to the patient's left distal lower extremity. EMS states they are unsure if this is acute or chronic skin color changing. Patient is not complaining of any lower extremity pain. EMS is only able to tell staff the patient is allergic to eggs. Past medical history: Dementia. - CONSTITUTIONAL Constitutional: DENIES: Fever, Chills - REPRODUCTIVE Reproductive: DENIES: : - MUSCULOSKELETAL Musculoskeletal: REPORTS: Extremity pain - L elbow Past Medical History - General Information source: Patient, Emergency Med Personnel - Social History Smoking Status: Unknown if Ever Smoked Family History: None Patient has suicidal ideation: No Patient has homicidal ideation: No - Past Medical History Cardiac Medical History: Reports: Hx Coronary Artery Disease, Hx Hypercholesterolemia, Hx Peripheral Vascular Disease Denies: Hx Heart Attack, Hx Hypertension Pulmonary Medical History: Denies: Hx Asthma, Hx Bronchitis, Hx COPD, Hx Pneumonia, Hx Tuberculosis Neurological Medical History: Denies: Hx Cerebrovascular Accident, Hx Seizures Renal/ Medical History: Reports: Hx Kidney Stones. Denies: Hx Peritoneal Dialysis Musculoskeletal Medical History: Reports Hx Arthritis Psychiatric Medical History: Reports: Hx Depression Past Surgical History: Reports: Hx Appendectomy, Hx Cardiac Catheterization - stents, Hx Cardiac Surgery - stent, Hx Cholecystectomy, Hx Coronary Stent, Hx Herniorrhaphy - Umbilical hernia, Hx Hysterectomy, Hx Oral Surgery, Hx Orthopedic Surgery - L1 vertebroplasty, Hx Umbilical Hernia, Hx Vascular Surgery - Aortobiiliac iliac stent within an abdominal aortic aneurysm - Immunizations Immunizations up to date: Yes Hx Diphtheria, Pertussis, Tetanus Vaccination: Yes Hx Pneumococcal Vaccination: 03/16/03 Vertical Provider Document - CONSTITUTIONAL Agree With Documented VS: Yes Notes: GENERAL: Alert, interacts well. No acute distress. HEAD: Normocephalic, atraumatic. EYES: Pupils equal, round, and reactive to light. Extraocular movements intact. ENT: Oral mucosa moist, tongue midline. NECK: Full range of motion. Supple. Trachea midline. LUNGS: Clear to auscultation bilaterally, no wheezes, rales, or rhonchi. No respiratory distress. HEART: Regular rate and rhythm. No murmur ABDOMEN: Soft, non-tender. Non-distended. Bowel sounds present in all 4 quadrants. EXTREMITIES: Moves all 4 extremities spontaneously. normal radial and dorsalis pedis pulses bilaterally. Patient will not fully extend the left elbow. No erythema or ecchymosis noted. Good distal circulation left upper extremity. Patient's denying any pain upon palpation left clavicle left humerus left elbow left forearm left wrist left hand. BACK: no cervical, thoracic, lumbar midline tenderness. No saddle anesthesia, normal distal neurovascular exam. NEUROLOGICAL: Alert to name and place (per EMS, per family on scene patient is mentally at her baseline.) Normal speech. cranial nerves II through XII grossly intact. PSYCH: Normal affect, normal mood. SKIN: Warm, dry, normal turgor. - INFECTION CONTROL TRAVEL OUTSIDE OF THE [place] IN LAST 30 DAYS: No Course - Re-evaluation Re-evalutation: Initially BL lower extremities were cold with a capillary refill of 4 seconds. Once warm blankets were applied to the patient her capillary refill was now 2 seconds, no discoloration noted to myself or nursing staff. Patient able to move bilateral lower extremities with no complaints. Patient's elbow x-ray revealed no signs of abnormalities. Patient continues to deny any pain upon palpation. When I asked her "does this hurt?" While I am palpating her left upper extremity she says "no it does not hurt, but I will give you something that hurts." Patient appears to be agitated and upset that I continue to ask her questions about her pain. Patient states "I do not have any pain." Patient is currently stable for discharge. Discussed with nursing staff awaiting return phone call from family members in order to discharge patient home safely. - Vital Signs Vital signs: Temp Pulse Resp BP Pulse Ox 97.3 F 58 L 16 143/44 H 97 05/18/18 01:24 05/18/18 01:24 05/18/18 01:24 05/18/18 01:24 05/18/18 01:24 Discharge - Discharge Clinical Impression: Left elbow pain Condition: Stable Disposition: HOME, SELF-CARE Additional Instructions: As we discussed you have been seen and treated in the emergency department for your left elbow pain. Your x-rays revealed no signs of abnormalities. You should follow-up with your primary care provider in the next 24-48 hours. Please return to the emergency room should you have any other concerning symptoms. Referrals: KELLY LESLIE, DO [Primary Care Provider] - Follow up as needed
[2018-05-19] MEDS ORDERED: HALOPERIDOL 5 MG TABLET PO ONE ×2 (00:09→22:29)
--- NOTE | 2018-05-19 11:21 | ER Document Report ---
Doctor's Note Notes: 05/19/18 11:20 Patient seen and examined. I am notified by nursing that the patient was evidently seen yesterday. Her son took her in and has evidently abandoned her here in the emergency department. We are currently trying to contact him. The patient herself has a history of dementia but denies any current complaints or concerns. She states she just wants to get some rest. She is anxious to go home. Patient is awake and alert, no apparent distress. Heart is regular rate and rhythm, lungs are clear to oscillation bilaterally. Abdomen soft, nontender, normoactive bowel sounds. No evidence tenderness to palpation about bilateral elbows. Plan is hopefully to discharge into the care of her son, with whom she lives. APS is involved. She does have home health at her house. Awaiting news from APS and family. 05/19/18 16:33 Notified by case management that APS was here to see the patient. They last saw her in December but states she is significantly off of her baseline. Blood work and urinalysis ordered.
[2018-05-19] MEDS ORDERED: ONDANSETRON 4 MG TAB.RAPDIS PO ONE (14:23)
[2018-05-19 17:54] LABS: HEMATOCRIT 38.7 % (36.0-47.0); HEMOGLOBIN 12.7 g/dL (12.0-15.5); MEAN CORPUSCULAR HEMOGLOBIN 28.9 pg (27.0-33.4); MEAN CORPUSCULAR HGB CONC 32.8 g/dL (32.0-36.0); MEAN CORPUSCULAR VOLUME 88 fl (80-97); RED BLOOD COUNT 4.39 10^6/uL (3.72-5.28); WHITE BLOOD COUNT 7.2 10^3/uL (4.0-10.5)
[2018-05-19 18:05] LABS: APPEARANCE,URINE SLIGHTLY-CLOUDY; BILIRUBIN,URINE NEGATIVE (NEGATIVE); CALCIUM OXALATE CRYSTALS,URINE FEW /HPF; COLOR,URINE YELLOW; GLUCOSE, URINE NEGATIVE (NEGATIVE); KETONES,URINE TRACE mg/dL (NEGATIVE); LEUKOCYTE ESTERASE,URINE NEGATIVE (NEGATIVE); NITRITE,URINE NEGATIVE (NEGATIVE); PROTEIN,URINE NEGATIVE (NEGATIVE); URINE SPECIFIC GRAVITY 1.023
[2018-05-19 18:08] LABS: ALANINE AMINOTRANSFERASE 22 U/L (9-52); ALBUMIN 3.6 g/dL (3.5-5.0); ALKALINE PHOSPHATASE 90 U/L (38-126); ANION GAP 9 (5-19); ASPARTATE AMINO TRANSFERASE 23 U/L (14-36); BILIRUBIN,DIRECT 0.2 mg/dL (0.0-0.4); BILIRUBIN,TOTAL 0.5 mg/dL (0.2-1.3); BLOOD UREA NITROGEN 14 mg/dL (7-20); CALCIUM 9.6 mg/dL (8.4-10.2); CARBON DIOXIDE 27 mmol/L (22-30); CHLORIDE 105 mmol/L (98-107); GLUCOSE 106 mg/dL (75-110); POTASSIUM 4.6 mmol/L (3.6-5.0); SODIUM 140.6 mmol/L (137-145); TOTAL PROTEIN 6.6 g/dL (6.3-8.2)
[2018-05-19 18:18] LABS: ABSOLUTE LYMPHOCYTES# (MANUAL) 1.5 10^3/uL (0.5-4.7); ABSOLUTE MONOCYTES # (MANUAL) 0.6 10^3/uL (0.1-1.4); ANISOCYTOSIS 1+; BASOPHILS % (MANUAL) 0 % (0-2); EOSINOPHILS % (MANUAL) 2 % (0-6); LYMPHOCYTES % (MANUAL) 21 % (13-45); MONOCYTES % (MANUAL) 8 % (3-13); PLATELET COMMENT ADEQUATE; SEGMENTED NEUTROPHILS % (MAN) 69 % (42-78); TOTAL CELLS COUNTED 100; TOXIC GRANULATION SLIGHT
[2018-05-19 18:19] LABS: PLATELET COUNT 262 10^3/uL (150-450)
[2018-05-20] MEDS ORDERED: ACETAMINOPHEN 325 MG TABLET ONE (09:19)
--- NOTE | 2018-05-20 09:44 | ER Document Report ---
Doctor's Note Notes: 05/20/18 09:43 Patient interviewed and examined. She is pleasant and cooperative. She complains of some pain all over, given Tylenol. We have yet to speak to son. According to nurse the patient is requiring nearly 100% of her ADLs with assistance at the very least. The patient denies any other acute complaints or concerns, did eat breakfast. Patient is awake and alert. Cooperative and pleasant. Slightly confused but oriented to place. Continually calls her nurse "lea." Heart is regular rate and rhythm, lungs are clear to oscillation bilaterally. Extremities without cyanosis or clubbing. Plan is to continue follow-up with APS and son. We are unsure as to who is power of client services representative. At this point the patient will almost definitely require nursing home facility placement. We will continue to follow.
[2018-05-21] MEDS ORDERED: ACETAMINOPHEN 325 MG TABLET PO ONE (01:45)
--- NOTE | 2018-05-21 10:15 | ER Document Report ---
Doctor's Note Notes: 05/21/18 10:14 Rounds: Chart reviewed and patient interviewed. Patient seems confused and does not offer worthwhile information verbally. Chart says she has dementia. Evaluated for some pain in her arm which is essentially normal to evaluate. Vital signs are all normal. Lab studies were all essentially normal. Patient appears to be medically stable for transfer or discharge. Yahir Do MD
--- NOTE | 2018-05-22 09:53 | ER Document Report ---
Doctor's Note Notes: 05/22/18 09:48 Patient was seen and evaluated by me today. She denies any medical complaints this morning. Patient was sleeping when I entered the room. I gently woke up and introduced myself on oxide there is any medical issues today which she denies. We are still waiting for the social work case manager decision and the patient's son to come to the emergency room. Patient's physical exam was unremarkable. Plan: Await social work case manager/APS decision on disposition patient by their recommendation. If the patient's son comes back to the emergency room and decided to take the patient home, patient will be allowed to return home with her son if the social work case manager/APS recommend that she is safe to do so.
[2018-05-23] MEDS ORDERED: ACETAMINOPHEN 325 MG TABLET PO ONE ×2 (01:17→12:56)
--- NOTE | 2018-05-23 10:01 | ER Document Report ---
Doctor's Note Notes: 05/23/18 10:00 Patient was seen and evaluated by me today. She denies any medical complaints this morning. Patient was sleeping when I entered the room. I gently woke up and introduced myself on oxide there is any medical issues today which she denies. We are still waiting for the social services decision and the patient's son to come to the emergency room. Patient's physical exam was unremarkable. Plan: Await social services/APS decision on disposition patient by their recommendation. If the patient's son comes back to the emergency room and decided to take the patient home, patient will be allowed to return home with her son if the social services/APS recommend that she is safe to do so. PHYSICAL EXAMINATION: GENERAL: Well-appearing, well-nourished and in no acute distress. HEAD: Atraumatic, normocephalic. EYES: Pupils equal round extraocular movements intact, conjunctiva are normal. ENT: Nares patent NECK: Normal range of motion LUNGS: No respiratory distress Musculoskeletal: Normal range of motion NEUROLOGICAL: Normal speech, normal gait. PSYCH: Confused SKIN: Warm, Dry, normal turgor, no rashes or lesions noted.
[2018-05-23] MEDS ORDERED: LIDOCAINE 5% (700 MG) TRANSDERMAL ADH..PATCH TP ONE (10:30)
[2018-05-23 11:10] LABS: ABSOLUTE BASOPHILS # (AUTO) 0.1 10^3/uL (0.0-0.2); ABSOLUTE EOSINOPHILS # (AUTO) 0.3 10^3/uL (0.0-0.6); ABSOLUTE LYMPHOCYTES (AUTO) 1.4 10^3/uL (0.5-4.7); ABSOLUTE MONOCYTES (AUTO) 0.6 10^3/uL (0.1-1.4); ABSOLUTE NEUT (AUTO) 5.1 10^3/uL (1.7-8.2); BASOPHILS % (AUTO) 1.5 % (0-2); EOSINOPHILS % (AUTO) 3.8 % (0-6); HEMATOCRIT 34.4 % (36.0-47.0); HEMOGLOBIN 11.2 g/dL (12.0-15.5); LYMPHOCYTES % (AUTO) 18.3 % (13-45); MEAN CORPUSCULAR HEMOGLOBIN 28.6 pg (27.0-33.4); MEAN CORPUSCULAR HGB CONC 32.6 g/dL (32.0-36.0); MEAN CORPUSCULAR VOLUME 88 fl (80-97); MONOCYTES % (AUTO) 8.5 % (3-13); PLATELET COUNT 229 10^3/uL (150-450); RED BLOOD COUNT 3.93 10^6/uL (3.72-5.28); RED CELL DISTRIBUTION WIDTH 16.4 % (11.5-14.0); SEGMENTED NEUTROPHILS % (AUTO) 67.9 % (42-78); TOTAL CELLS COUNTED % (AUTO) 100 %; WHITE BLOOD COUNT 7.6 10^3/uL (4.0-10.5)
[2018-05-23 11:23] LABS: ANION GAP 8 (5-19); BLOOD UREA NITROGEN 14 mg/dL (7-20); CALCIUM 9.2 mg/dL (8.4-10.2); CARBON DIOXIDE 29 mmol/L (22-30); CHLORIDE 101 mmol/L (98-107); GLUCOSE 104 mg/dL (75-110); POTASSIUM 4.3 mmol/L (3.6-5.0); SODIUM 138.1 mmol/L (137-145)
[2018-05-23] MEDS ORDERED: ACETAMINOPHEN 325 MG TABLET ONE (12:53)
[2018-05-24 00:11] VITALS: BP 144/62
[2018-05-24] MEDS ORDERED: HALOPERIDOL 5 MG TABLET PO ONE (02:18)
[2018-05-24] MEDS ORDERED: HALOPERIDOL LACTATE INJ 5 MG/1 ML VIAL IM ONE (02:34)
--- NOTE | 2018-05-24 02:37 | ER Document Report ---
Doctor's Note Notes: 05/24/18 02:36 Patient started to have what I suspect is sundowning. She is become agitated and thinks that the nurse is trying to kill people and thinks that the nurse has left the body on the floor in her room. I am able to talk to her and calm her down however when the nurse into the room she immediately becomes upset again. Seeing that she is received Haldol before which seems to help. Try to give her oral dose of Haldol but she will not taken from the nurse. We will give her a shot of 2.5 mg of Haldol IM to see if this helps calm her down. Her repeat vital signs are normal. She does not have a fever. No signs of infection. Dictation of this chart was performed using voice recognition software; th erefore, there may be some unintended grammatical errors.
[2018-05-24] MEDS ORDERED: ACETAMINOPHEN 325 MG TABLET PO ONE (04:44)
--- NOTE | 2018-05-24 09:38 | ER Document Report ---
Doctor's Note Notes: 05/24/18 09:38 Patient has been seen and evaluated resting comfortably no acute distress. Laboratory values previous provider note and vital signs have been evaluated. Patient otherwise looks to be stable for disposition/transfer.
== END 2018-05-24 15:22 | disposition home or self-care (01) ==
LOC: ER 01:21
DX: M25.522 Pain in left elbow (principal); W22.09XA Striking against other stationary object, initial encounter; Y93.89 Activity, other specified; Y92.009 Unspecified place in unspecified non-institutional (private) residence as the place of occurrence of the external cause; F03.90 Unspecified dementia, unspecified severity, without behavioral disturbance, psychotic disturbance, mood disturbance, and anxiety; I25.10 Atherosclerotic heart disease of native coronary artery without angina pectoris; Z91.012 Allergy to eggs
CPT/HCPCS: 99284; 96372; 36415; 82553; 82962; 85025; 80048; 80053; 81001; 73080; A9270 ×6; J1630; S0119

== ENCOUNTER 2018-06-02 21:40 | Observation (INO) | payer MEDICARE, OTHER ==
[2018-06-02] MEDS ORDERED: ACETAMINOPHEN 325 MG TABLET PO ONE (22:34)
--- NOTE | 2018-06-02 22:41 | ER Document Report ---
ED General - General TRAVEL OUTSIDE OF THE [place] IN LAST 30 DAYS: No <CLAUDIA BROWNING Jaguar - Last Filed: 06/03/18 04:51> <CALVIN FINN - Last Filed: 06/03/18 13:54> - General Chief Complaint: Fall Stated Complaint: FALL INJURY Time Seen by Provider: 06/02/18 22:04 Primary Care Provider: ROBERT HARRIS DO [Primary Care Provider] - Follow up in 3-5 days Notes: Patient is a 82-year-old female with dementia that presents to the emergency department for chief complaint of back pain after a fall. Patient states that she slid out of her wheelchair, and fell onto her buttocks, denies head injury or loss of consciousness. She also denies any neck pain at this time. He states that she has broken her back in the past and had compression fractures, she is having pain in her lower back. She currently rates the pain as a 4 out of 10 describes as a constant ache. She denies numbness, weakness or tingling in her upper or lower extremities. She states that her "left leg is always broken." Past Medical History: Dementia, arthritis Past Surgical History: Foot surgery Social History: Lives at home, denies tobacco or alcohol use Family History: Reviewed and noncontributory for presenting illness Allergies: Reviewed, see documented allergy list. REVIEW OF SYSTEMS: Other than noted above, the 12 point review of systems was reviewed with the patient and were negative, all pertinent findings are included in the HPI. PHYSICAL EXAMINATION: Vital signs reviewed, nursing noted reviewed. GENERAL: Elderly, frail female, no acute distress HEAD: Atraumatic, normocephalic. EYES: Eyes appear normal, extraocular movements intact, sclera anicteric, conjunctiva are normal. ENT: nares patent, oropharynx clear without exudates. Moist mucous membranes. NECK: Normal range of motion, supple without lymphadenopathy LUNGS: Breath sounds clear to auscultation bilaterally and equal. No wheezes rales or rhonchi. HEART: Regular rate and rhythm without murmurs ABDOMEN: Soft, nontender, normoactive bowel sounds. No rebound, guarding, or rigidity. No masses appreciated. Back: Thoracic kyphosis noted, no midline tenderness to the thoracic or lumbar spine, there is mild paraspinal tenderness bilaterally in the lumbar spine. Mainly around L3-L5. EXTREMITIES: Nontender, negative right logrolling bilaterally, the patient is holding her left hip in abduction, and is not able to extend her knee fully, this is the leg that she states that is chronically broken. Sensation appears to be grossly intact distally, as is motor strength in the feet with dorsiflexion and plantar flexion and extension of the hallucis longus tendon. NEUROLOGICAL: No focal neurological deficits. Moves all extremities spontaneously Motor and sensory grossly intact on exam. PSYCH: Normal mood, normal affect. SKIN: Warm, Dry, normal turgor, no rashes or lesions noted on exposed skin (CLAUDIA BROWNING) - Related Data Allergies/Adverse Reactions: egg Allergy (Verified 06/03/18 09:56) Egg Derived Allergy (Verified 06/03/18 09:56) egg yolk Allergy (Verified 06/03/18 09:56) Past Medical History - Social History Smoking Status: Never Smoker Family History: None - Past Medical History Cardiac Medical History: Reports: Hx Coronary Artery Disease, Hx Hypercholes terolemia, Hx Peripheral Vascular Disease Denies: Hx Heart Attack, Hx Hypertension Pulmonary Medical History: Denies: Hx Asthma, Hx Bronchitis, Hx COPD, Hx Pneumonia, Hx Tuberculosis Neurological Medical History: Denies: Hx Cerebrovascular Accident, Hx Seizures Renal/ Medical History: Reports: Hx Kidney Stones. Denies: Hx Peritoneal Dialysis Musculoskeletal Medical History: Reports Hx Arthritis Psychiatric Medical History: Reports: Hx Depression Past Surgical History: Reports: Hx Appendectomy, Hx Cardiac Catheterization - stents, Hx Cardiac Surgery - stent, Hx Cholecystectomy, Hx Coronary Stent, Hx Herniorrhaphy - Umbilical hernia, Hx Hysterectomy, Hx Oral Surgery, Hx Orthopedic Surgery - L1 vertebroplasty, Hx Umbilical Hernia, Hx Vascular Surgery - Aortobiiliac iliac stent within an abdominal aortic aneurysm - Immunizations Immunizations up to date: Yes Hx Diphtheria, Pertussis, Tetanus Vaccination: Yes Hx Pneumococcal Vaccination: 03/16/03 <CLAUDIA BROWNING - Last Filed: 06/03/18 04:51> - Vital signs Vitals: Temp Pulse Resp BP Pulse Ox 97.6 F 59 L 16 124/45 L 99 06/02/18 21:40 06/02/18 21:40 06/02/18 21:40 06/02/18 21:40 06/02/18 21:40 Course <BROWNING,CLAUDIA C - Last Filed: 06/03/18 04:51> - Laboratory Result Diagrams: 06/03/18 09:38 06/03/18 09:38 - Consults Dr. Card Time consulted: 11:30 Consulted provider: will come to ER <CALVIN FINN - Last Filed: 06/03/18 13:54> - Re-evaluation Re-evalutation: Patient seen and examined vital signs reviewed. Laboratory data and imaging were ordered as appropriate for the patient's presenting symptoms and complaint, with consideration of any critical or life threatening conditions that may be associated with their obtained history and exam as noted above. Patient was treated with Tylenol. Results were reviewed when available and demonstrated negative CT imaging of the head and cervical spine, negative x-ray of the thoracic spine for anything acute, demonstrate a prior kyphoplasty, no changes in heights of the vertebral bodies from priors, x-rays obtained of the pelvis and left hip, this demonstrated what appeared to be hypertrophic nonunion of the left hip, likely chronic, no prior imaging available, except for images from 2016, unable to get a hold of the patient's son, we were going to discharge the patient, as I feel that these x-ray findings are chronic, given what the patient told me when she was more lucid, however after discussing with transport team that is been to this patient's house before, they are concerned about her safety, as apparently the home is in bad shape, therefore will have the patient is a social hold, with discharge planning in the morning. The patient was re-evaluated and was starting to have sundowning, was yelling that she wanted to call the police, patient was given a dose of 2 mg of IM Haldol to help with her agitation. Patient eventually calmed down, was resting comfortably. At this point will allow the patient to rest, and address her social issues in the morning, consult placed for discharge planning. Evaluation was most consistent with fall, back pain *Note is created using voice recognition software and may contain spelling, syntax or grammatical errors. Cervical Spine CT 06/02/18 22:34 IMPRESSION: No CT evidence for acute C-spine abnormality TECHNICAL DOCUMENTATION: Quality ID # 436: Final reports with documentation of one or more dose reduction techniques (e.g., Automated exposure control, adjustment of the mA and/or kV according to patient size, use of iterative reconstruction technique) copyright 2010 [employer]- All Rights Reserved Head CT 06/02/18 22:34 IMPRESSION: Negative for acute intracranial abnormality. Atrophy. Small vessel ischemic change. 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 Osteopenia. Compression deformity of L1 with post vertebroplasty change. Stable compression fracture deformity of T11. copyright 2010 [employer]- All Rights Reserved (CLAUDIA BROWNING) 06/03/18 11:40 This 82-year-old female patient was brought the emergency room yesterday evening after sliding out of her wheelchair at home. He apparently mostly lives alone. She does suffer from dementia. She was here in this emergency room from 05/18/2018 through 05/24/2018 on a social hold because she could not be left to live alone, and they could not get her son to agree to take her back home. At this time I am told that they cannot get in touch with her son at all to talk with him about getting her back home. The nurse reported the patient began last night and required Haldol to control her. I ordered lab work this morning to see if there was an identifiable medical condition, and found that the patient has a significant urinary tract infection at this time. She is also appears to be dehydrated comparing her lab work today to her lab work back on 05/18/2018. She was given 1 L of normal saline IV, and 1 g of Rocephin IV. The urine was cultured. The hospitalist was contacted to admit the patient for her urinary tract infection, as she is not a candidate to be discharged home for treatment at this time. (CALVIN FINN) - Vital Signs Vital signs: Temp Pulse Resp BP Pulse Ox 97.7 F 67 18 149/54 H 96 06/03/18 11:41 06/03/18 05:40 06/03/18 13:01 06/03/18 13:00 06/03/18 13:01 - Laboratory Laboratory results interpreted by me: 06/03/18 06/03/18 06/03/18 09:38 09:38 09:38 Hgb 11.1 L Hct 34.2 L RDW 16.7 H Basophils % (Manual) 3 H BUN 25 H Total Protein 5.7 L Albumin 3.0 L Urine Protein 100 H Urine Urobilinogen 2.0 H Ur Leukocyte Esterase LARGE H Urine Ascorbic Acid 40 H Discharge <CLAUDIA BROWNING - Last Filed: 06/03/18 04:51> - Discharge Admitting Provider: Hospitalist Unit Admitted: Medical Floor <CALVIN FINN - Last Filed: 06/03/18 13:54> - Discharge Clinical Impression: Fall Qualifiers: Encounter type: initial encounter Qualified Code(s): W19.XXXA - Unspecified fall, initial encounter Back pain Qualifiers: Back pain location: low back pain Chronicity: acute Back pain laterality: midline Sciatica presence: without sciatica Qualified Code(s): M54.5 - Low back pain Urinary tract infection Qualifiers: Urinary tract infection type: site unspecified Hematuria presence: with hematuria Qualified Code(s): N39.0 - Urinary tract infection, site not specified Condition: Stable Disposition: ADMITTED INPATIENT Referrals: ROBERT HARRIS DO [Primary Care Provider] - Follow up in 3-5 days
--- NOTE | 2018-06-02 23:29 | RADIOLOGY REPORT (SQ) ---
EXAM DESCRIPTION: CT CERVICAL SPINE WITHOUT IV CONTRAST COMPLETED DATE/TME: 06/02/2018 22:34 CLINICAL HISTORY: 82 years, Female, neck pain, fall COMPARISON: 03/27/2015 CT TECHNIQUE: 214 Images stored on PACS. All CT scanners at this facility use dose modulation, iterative reconstruction, and/or weight based dosing when appropriate to reduce radiation dose to as low as reasonably achievable (ALARA). [facility]: Dose Right [facility]: CareDose [facility]: Dose Right [facility]: Teradose 4D [facility]: Smart [employer] LIMITATIONS: None. FINDINGS: Evaluation of spinal canal contents limited due to CT technique. However, vertebral body height and alignment is preserved. The disc spaces are maintained. Prevertebral soft tissues are normal. Extraspinal anatomic structures are grossly unremarkable other than atheromatous changes of the aortic arch. IMPRESSION: No CT evidence for acute C-spine abnormality TECHNICAL DOCUMENTATION: Quality ID # 436: Final reports with documentation of one or more dose reduction techniques (e.g., Automated exposure control, adjustment of the mA and/or kV according to patient size, use of iterative reconstruction technique) copyright 2011 [employer]- All Rights Reserved
--- NOTE | 2018-06-02 23:30 | RADIOLOGY REPORT (SQ) ---
EXAM DESCRIPTION: CT HEAD WITHOUT IV CONTRAST COMPLETED DATE/TME: 06/02/2018 22:34 CLINICAL HISTORY: 82 years, Female, neck pain, fall COMPARISON: 12/30/2017 CT. TECHNIQUE: 190 Images stored on PACS. All CT scanners at this facility use dose modulation, iterative reconstruction, and/or weight based dosing when appropriate to reduce radiation dose to as low as reasonably achievable (ALARA). [facility]: Dose Right [facility]: CareDose [facility]: Dose Right [facility]: Teradose 4D [facility]: Smart [employer] LIMITATIONS: None. FINDINGS: The globes are intact. The paranasal sinuses and mastoid air cells are unremarkable. No displaced or depressed skull fracture. No intra or extra-axial hemorrhage. CT is limited for evaluation of acute infarct. No CT evidence for large or territorial acute infarct. No mass or midline shift. Diffuse atrophy with small vessel ischemic change. Remote area of infarct in the high right frontal parietal region. IMPRESSION: Negative for acute intracranial abnormality. Atrophy. Small vessel ischemic change. 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
--- NOTE | 2018-06-02 23:35 | RADIOLOGY REPORT (SQ) ---
EXAM DESCRIPTION: XR LUMBAR SPINE ANTEROPOSTERIOR, LATERAL, AND OBLIQUES COMPLETED DATE/TME: 06/02/2018 22:34 CLINICAL HISTORY: 82 years, Female, back pain COMPARISON: 05/09/2017 lumbar spine MRI. NUMBER OF VIEWS: 5 TECHNIQUE: 5 view lumbar spine LIMITATIONS: None. FINDINGS: Osteopenia. Endovascular stent graft of the aorta and iliac vessels. Post vertebroplasty changes of L1 age-indeterminate compression deformity of T11 and L4. Approximately 30% loss of height of the L4 vertebral body. This was also present on prior MRI and appears grossly similar.. IMPRESSION: Grossly similar compression fracture deformity of L4. Osteopenia. Compression deformity of L1 with post vertebroplasty change. Stable compression fracture deformity of T11. copyright 2010 [employer]- All Rights Reserved
[2018-06-03] MEDS ORDERED: HALOPERIDOL LACTATE INJ 5 MG/1 ML VIAL IM ONE (00:37)
--- NOTE | 2018-06-03 01:49 | RADIOLOGY REPORT (SQ) ---
EXAM DESCRIPTION: XR HIP 2 OR MORE VIEWS left COMPLETED DATE/TME: 06/03/2018 00:43 CLINICAL HISTORY: 82 years, Female, hip pain COMPARISON: March 2015. FINDINGS/impression: Heterotopic ossification surrounds the proximal left femur which is new compared to the prior study. No obvious fractures but nondisplaced fractures may be obscured. Mild degenerative changes in the left hip joint. Aortic endograft is partially visualized.
[2018-06-03 09:51] LABS: HEMATOCRIT 34.2 % (36.0-47.0); HEMOGLOBIN 11.1 g/dL (12.0-15.5); MEAN CORPUSCULAR HEMOGLOBIN 28.6 pg (27.0-33.4); MEAN CORPUSCULAR HGB CONC 32.6 g/dL (32.0-36.0); MEAN CORPUSCULAR VOLUME 88 fl (80-97); RED BLOOD COUNT 3.89 10^6/uL (3.72-5.28); RED CELL DISTRIBUTION WIDTH 16.7 % (11.5-14.0); WHITE BLOOD COUNT 6.5 10^3/uL (4.0-10.5)
[2018-06-03 10:07] LABS: CALCIUM OXALATE CRYSTALS,URINE MODERATE /HPF
[2018-06-03 10:11] LABS: ALANINE AMINOTRANSFERASE 19 U/L (9-52); ALKALINE PHOSPHATASE 81 U/L (38-126); ANION GAP 8 (5-19); ASPARTATE AMINO TRANSFERASE 20 U/L (14-36); BILIRUBIN,DIRECT 0.2 mg/dL (0.0-0.4); BILIRUBIN,TOTAL 0.4 mg/dL (0.2-1.3); BLOOD UREA NITROGEN 25 mg/dL (7-20); CALCIUM 9.6 mg/dL (8.4-10.2); CARBON DIOXIDE 26 mmol/L (22-30); CHLORIDE 106 mmol/L (98-107); CREATINE KINASE 108 U/L (30-135); GLUCOSE 91 mg/dL (75-110); POTASSIUM 4.1 mmol/L (3.6-5.0); SODIUM 139.6 mmol/L (137-145); TOTAL PROTEIN 5.7 g/dL (6.3-8.2)
[2018-06-03 10:14] LABS: ABSOLUTE LYMPHOCYTES# (MANUAL) 2.3 10^3/uL (0.5-4.7); ABSOLUTE MONOCYTES # (MANUAL) 0.2 10^3/uL (0.1-1.4); ABSOLUTE NEUTROPHILS# (MANUAL) 3.4 10^3/uL (1.7-8.2); BASOPHILS % (MANUAL) 3 % (0-2); EOSINOPHILS % (MANUAL) 6 % (0-6); LYMPHOCYTES % (MANUAL) 33 % (13-45); MONOCYTES % (MANUAL) 3 % (3-13); SEGMENTED NEUTROPHILS % (MAN) 53 % (42-78); TOTAL CELLS COUNTED 100
[2018-06-03 10:15] LABS: ANISOCYTOSIS 1+; APPEARANCE,URINE TURBID; BILIRUBIN,URINE NEGATIVE (NEGATIVE); COLOR,URINE YELLOW; GLUCOSE, URINE NEGATIVE (NEGATIVE); KETONES,URINE NEGATIVE (NEGATIVE); LEUKOCYTE ESTERASE,URINE LARGE (NEGATIVE); NITRITE,URINE NEGATIVE (NEGATIVE); POIKILOCYTOSIS SLIGHT; PROTEIN,URINE 100 mg/dL (NEGATIVE); URINE SPECIFIC GRAVITY 1.023
[2018-06-03 10:16] LABS: OVALOCYTES SLIGHT; PLATELET CLUMPS PRESENT; PLATELET COMMENT ADEQUATE; PLATELET COUNT 223 10^3/uL (150-450); SCHISTOCYTES SLIGHT
[2018-06-03] MEDS ORDERED: CEFTRIAXONE 1 GM/D5W RTU 1 GM/50 ML RTUPB IV ONE (10:51)
[2018-06-03] MEDS ORDERED: NORMAL SALINE 1000 ML 1,000 ML IV ONE (10:51)
[2018-06-03] MEDS: HEPARIN SOD (PORCINE) 5,000 UNIT/ML 1 ML SYRINGE SUBCUT SCH ×2 (15:53→22:17)
--- NOTE | 2018-06-03 16:47 | PDOC H&P ---
History of Present Illness Admission Date/PCP: 06/03/18 14:28 ROBERT HARRIS DO History of Present Illness: YAMILEX BENJAMIN is a 82 year old female who was apparently just discharged from our facility a couple of days ago and was by report in her wheelchair at home trying to move a small table when she fell out of the chair. She was brought to the hospital and some concerns were voiced by EMS about the patient's ability to take care of herself at home because apparently they have had to pick her up before and were concerned about her home living situation. Apparently they were going to send her home before these concerns were voiced, and so attempts were made to find an acute medical condition for which she could be admitted. Despite the patient having no complaints of any dysuria, nor did she have any signs of infection externally, urinalysis was checked and she was noted to have a positive leukocyte esterase. Antibiotics were started at that time and they called the hospitalist service to admit. Ostensibly this was done in an effort to transition the patient into long-term care. Past Medical History Cardiac Medical History: Reports: Coronary Artery Disease, Hyperlipidema, Peripheral Vascular Disease Denies: Myocardial Infarction, Hypertension Pulmonary Medical History: Denies: Asthma, Bronchitis, Chronic Obstructive Pulmonary Disease (COPD), Pneumonia, Tuberculosis Neurological Medical History: Denies: Seizures Musculoskeltal Medical History: Reports: Arthritis Psychiatric Medical History: Reports: Depression Hematology: Denies: Anemia Past Surgical History Past Surgical History: Reports: Appendectomy, Cardiac Catheterization - stents, Cholecystectomy, Coronary Stent, Herniorrhaphy - Umbilical hernia, Hysterectomy, Orthopedic Surgery - L1 vertebroplasty, Vascular Surgery - Aortobiiliac iliac stent within an abdominal aortic aneurysm Social History Smoking Status: Never Smoker Frequency of Alcohol Use: None Hx Recreational Drug Use: No Hx Prescription Drug Abuse: No - Advance Directive Resuscitation Status: Full Code Family History Family History: None Parental Family History Reviewed: No - Unable to obtain Children Family History Reviewed: No - Unable to obtain Sibling(s) Family History Reviewed.: No - Unable to obtain Medication/Allergy Home Medications: Lisinopril [Prinivil 5 mg Tablet] 5 mg PO DAILY tablet 12/04/17 Metoprolol Succinate [Toprol Xl 50 mg Tab.sr] 100 mg PO DAILY tab.sr.24h 12/04/17 Omeprazole 20 mg PO DAILY 05/21/18 Allergies/Adverse Reactions: egg Allergy (Verified 06/03/18 09:56) Egg Derived Allergy (Verified 06/03/18 09:56) egg yolk Allergy (Verified 06/03/18 09:56) Review of Systems ROS unobtainable: Due to mental status Physical Exam Vital Signs: Temp Pulse Resp BP Pulse Ox 98.1 F 72 18 122/74 96 06/03/18 15:50 06/03/18 15:50 06/03/18 15:50 06/03/18 15:50 06/03/18 15:50 Intake & Output 06/02/18 06/03/18 06/04/18 06:59 06:59 06:59 Intake Total 1050 Balance 1050 Weight 45.3 kg General appearance: PRESENT: no acute distress, cooperative, disheveled, thin Head exam: PRESENT: atraumatic, normocephalic Eye exam: PRESENT: EOMI, PERRLA. ABSENT: conjunctival injection, nystagmus, scleral icterus Ear exam: PRESENT: normal external ear exam Mouth exam: PRESENT: dry mucosa, neck supple Teeth exam: PRESENT: poor dentation Neck exam: PRESENT: full ROM. ABSENT: carotid bruit, JVD, lymphadenopathy, meningismus, tenderness, thyromegaly Respiratory exam: PRESENT: clear to auscultation seth, symmetrical, unlabored. ABSENT: accessory muscle use, crackles, prolonged expiratory phas, rhonchi, tachypnea, wheezes Cardiovascular exam: PRESENT: irregular rhythm, systolic murmur Pulses: PRESENT: normal carotid pulses Vascular exam: PRESENT: normal capillary refill GI/Abdominal exam: PRESENT: normal bowel sounds, soft. ABSENT: distended, guarding, rebound, tenderness Extremities exam: ABSENT: clubbing, pedal edema Musculoskeletal exam: PRESENT: other - She prefers to lie in bed with her pelvis rotated to the left, her hips and knees flexed. ABSENT: ambulatory, normal inspection Neurological exam: PRESENT: awake, oriented to person, other - Could not obtain a satisfactory comprehensive neurological exam because of the patient's inability to comply with all aspects of the examination. ABSENT: oriented to pl talia, oriented to time, oriented to situation Psychiatric exam: PRESENT: flat affect Skin exam: PRESENT: dry, warm Results Laboratory Results: 06/03/18 09:38 06/03/18 09:38 03/06/03/18 06/03/18 09:38 09:38 09:38 WBC 6.5 RBC 3.89 Hgb 11.1 L Hct 34.2 L MCV 88 MCH 28.6 MCHC 32.6 RDW 16.7 H Plt Count 223 Seg Neutrophils % Not Reportable Lymphocytes % Not Reportable Monocytes % Not Reportable Eosinophils % Not Reportable Basophils % Not Reportable Absolute Neutrophils Not Reportable Absolute Lymphocytes Not Reportable Absolute Monocytes Not Reportable Absolute Eosinophils Not Reportable Absolute Basophils Not Reportable Sodium 139.6 Potassium 4.1 Chloride 106 Carbon Dioxide 26 Anion Gap 8 BUN 25 H Creatinine 0.57 Est GFR ( Amer) > 60 Est GFR (Non-Af Amer) > 60 Glucose 91 Calcium 9.6 Total Bilirubin 0.4 AST 20 ALT 19 Alkaline Phosphatase 81 Total Protein 5.7 L Albumin 3.0 L Urine Color YELLOW Urine Appearance TURBID Urine pH 5.0 Ur Specific [place] 1.023 Urine Protein 100 H Urine Glucose (UA) NEGATIVE Urine Ketones NEGATIVE Urine Blood NEGATIVE Urine Nitrite NEGATIVE Ur Leukocyte Esterase LARGE H Urine WBC (Auto) >182 Urine RBC (Auto) 19 06/03/18 09:38 Creatine Kinase 108 Impressions: Cervical Spine CT 06/02/18 22:34 IMPRESSION: No CT evidence for acute C-spine abnormality TECHNICAL DOCUMENTATION: Quality ID # 436: Final reports with documentation of one or more dose reduction techniques (e.g., Automated exposure control, adjustment of the mA and/or kV according to patient size, use of iterative reconstruction technique) copyright 2011 [employer]- All Rights Reserved Head CT 06/02/18 22:34 IMPRESSION: Negative for acute intracranial abnormality. Atrophy. Small vessel ischemic change. 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 Osteopenia. Compression deformity of L1 with post vertebroplasty change. Stable compression fracture deformity of T11. copyright 2011 [employer]- All Rights Reserved Assessment and Plan - Diagnosis (1) Fall Qualifiers: Encounter type: initial encounter Qualified Code(s): W19.XXXA - Unspecified fall, initial encounter Is this a current diagnosis for this admission?: Yes Plan: Imaging of the head, cervical spine, lumbar spine, and pelvis were negative for acute abnormalities, showing only chronic changes noted to previously exist. I am not continuing antibiotics because I do not believe that she has a urinary tract infection. She will be allowed to eat and drink as normal, we will try to get this situation sorted out with the discharge planners. - Time Time Spent with patient: 35 or more minutes - 50 minutes were spent gathering information and performing a history and physical and coordinating care
[2018-06-03] MEDS ORDERED: CHLORPROMAZINE HCL INJ 25 MG/1 ML AMPULE IV PRN (21:59)
[2018-06-03] MEDS ORDERED: DIAZEPAM INJ 10 MG/2 ML DISP.SYRIN IV PRN (21:59)
[2018-06-04] MEDS: ACETAMINOPHEN 325 MG TABLET PO PRN ×2 (00:51→11:37)
[2018-06-04] MEDS: HEPARIN SOD (PORCINE) 5,000 UNIT/ML 1 ML SYRINGE SUBCUT SCH ×3 (05:58→21:01)
[2018-06-04] MEDS: PANTOPRAZOLE SODIUM 20 MG TABLET.DR PO SCH (05:59)
[2018-06-04] MEDS: METOPROLOL SUCCINATE 50 MG TAB.SR.24H PO SCH (09:25)
[2018-06-04] MEDS: LISINOPRIL 5 MG TABLET PO SCH (09:26)
[2018-06-04] MEDS ORDERED: NORMAL SALINE 1000 ML 1,000 ML IV ONE (15:00)
--- NOTE | 2018-06-04 17:12 | PDOC PROGRESS REPORT ---
Subjective Progress Note for:: 06/04/18 Subjective:: No adverse events overnight. No new complaints. Vital signs been stable. She gets a little ornery at times but for the most part has not been agitated. Reason For Visit: GENERAL DEBILITY Physical Exam Vital Signs: Temp Pulse Resp BP Pulse Ox 97.8 F 80 16 90/52 L 97 06/04/18 07:50 06/04/18 14:30 06/04/18 14:30 06/04/18 16:48 06/04/18 14:30 Intake & Output 06/03/18 06/04/18 06/05/18 06:59 06:59 06:59 Intake Total 1674 1000 Balance 1674 1000 Weight 45.3 kg 51.1 kg 51.1 kg General appearance: PRESENT: no acute distress, cooperative, disheveled, thin Respiratory exam: PRESENT: clear to auscultation seth, symmetrical, unlabored. ABSENT: accessory muscle use, crackles, prolonged expiratory phas, rhonchi, tachypnea, wheezes Cardiovascular exam: PRESENT: irregular rhythm, systolic murmur Pulses: PRESENT: normal carotid pulses Vascular exam: PRESENT: normal capillary refill GI/Abdominal exam: PRESENT: normal bowel sounds, soft. ABSENT: distended, guarding, rebound, tenderness Extremities exam: ABSENT: clubbing, pedal edema Musculoskeletal exam: PRESENT: other - She prefers to lie in bed with her pelvis rotated to the left, her hips and knees flexed. ABSENT: ambulatory, normal inspection Results Laboratory Results: 06/03/18 09:38 06/03/18 09:38 06/03/18 09:38 Catheterized Urine Urine Culture - Final Yeast, Not Sabrina Albicans 06/03/18 09:38 Creatine Kinase 108 Impressions: Cervical Spine CT 06/02/18 22:34 IMPRESSION: No CT evidence for acute C-spine abnormality TECHNICAL DOCUMENTATION: Quality ID # 436: Final reports with documentation of one or more dose reduction techniques (e.g., Automated exposure control, adjustment of the mA and/or kV according to patient size, use of iterative reconstruction technique) copyright 2010 [employer]- All Rights Reserved Head CT 06/02/18 22:34 IMPRESSION: Negative for acute intracranial abnormality. Atrophy. Small vessel ischemic change. 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 Osteopenia. Compression deformity of L1 with post vertebroplasty change. Stable compression fracture deformity of T11. copyright 2011 [employer]- All Rights Reserved Assessment and Plan - Diagnosis (1) Fall Qualifiers: Encounter type: initial encounter Qualified Code(s): W19.XXXA - Unspecified fall, initial encounter Is this a current diagnosis for this admission?: Yes Plan: Imaging of the head, cervical spine, lumbar spine, and pelvis were negative for acute abnormalities, showing only chronic changes noted to previously exist. I am not continuing antibiotics because I do not believe that she has a urinary tract infection. She will be allowed to eat and drink as normal, we will try to get this situation sorted out with the discharge planners. At the moment, it seems that her son is planning on taking her back home. - Time Time Spent with patient: 15-24 minutes
[2018-06-04] MEDS: DIAZEPAM INJ 10 MG/2 ML DISP.SYRIN IV PRN (21:01)
[2018-06-04] MEDS ORDERED: NORMAL SALINE 250 ML IV ONE (21:45)
[2018-06-05] MEDS: DIAZEPAM INJ 10 MG/2 ML DISP.SYRIN IV PRN (03:05)
[2018-06-05] MEDS: HEPARIN SOD (PORCINE) 5,000 UNIT/ML 1 ML SYRINGE SUBCUT SCH ×3 (05:19→21:26)
[2018-06-05] MEDS: PANTOPRAZOLE SODIUM 20 MG TABLET.DR PO SCH (05:19)
[2018-06-05] MEDS: CHLORPROMAZINE HCL INJ 25 MG/1 ML AMPULE IV PRN (09:18)
[2018-06-05] MEDS: LISINOPRIL 5 MG TABLET PO SCH (10:50)
[2018-06-05] MEDS: METOPROLOL SUCCINATE 50 MG TAB.SR.24H PO SCH (10:50)
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
[2018-06-06] MEDS: CHLORPROMAZINE HCL INJ 25 MG/1 ML AMPULE IV PRN ×2 (00:42→06:28)
[2018-06-06] MEDS: HEPARIN SOD (PORCINE) 5,000 UNIT/ML 1 ML SYRINGE SUBCUT SCH (06:29)
[2018-06-06] MEDS: PANTOPRAZOLE SODIUM 20 MG TABLET.DR PO SCH (06:41)
[2018-06-06] MEDS: METOPROLOL SUCCINATE 50 MG TAB.SR.24H PO SCH (09:40)
[2018-06-06 13:16] VITALS: BP 134/44
== END 2018-06-06 13:15 | disposition home health service (06) ==
LOC: ER 21:40 → INTOOBSV 06-03 14:28 → EH 06-03 14:28 → 4W 06-03 16:03 → 4N 06-05 06:39
PROVIDERS: ADMIT Family Medicine; ATTEND Internal Medicine
DX: M54.5 Low back pain (principal); W05.0XXA Fall from non-moving wheelchair, initial encounter; R82.998 Other abnormal findings in urine; F03.91 Unspecified dementia, unspecified severity, with behavioral disturbance; F05 Delirium due to known physiological condition; M40.294 Other kyphosis, thoracic region; M48.56XS Collapsed vertebra, not elsewhere classified, lumbar region, sequela of fracture; M48.54XS Collapsed vertebra, not elsewhere classified, thoracic region, sequela of fracture; I73.9 Peripheral vascular disease, unspecified; I25.10 Atherosclerotic heart disease of native coronary artery without angina pectoris; M85.88 Other specified disorders of bone density and structure, other site; M19.90 Unspecified osteoarthritis, unspecified site; Z79.899 Other long term (current) drug therapy; Z87.311 Personal history of (healed) other pathological fracture; Z98.890 Other specified postprocedural states; Z90.49 Acquired absence of other specified parts of digestive tract; Z90.710 Acquired absence of both cervix and uterus; Z95.5 Presence of coronary angioplasty implant and graft; Z75.2 Other waiting period for investigation and treatment; Z60.2 Problems related to living alone
CPT/HCPCS: 99285; 96372; 51701; 96365; 36415; 87086; 82550; 85025; 80053; 81001; 73502; 72110; 70450; 72125; A9270 ×7; J1644 ×4; J3230 ×3; J3360 ×3; J1630; J3490 ×4; J7030 ×2; J7050; J0696; G0378

== ENCOUNTER 2018-06-17 18:50 | Emergency (ER) | payer MEDICARE, OTHER ==
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
[2018-06-17 23:50] VITALS: BP 180/55
== END 2018-06-18 01:00 | disposition home or self-care (01) ==
LOC: ER 18:50
DX: F03.91 Unspecified dementia, unspecified severity, with behavioral disturbance (principal); R10.9 Unspecified abdominal pain; Y04.2XXA Assault by strike against or bumped into by another person, initial encounter; I25.10 Atherosclerotic heart disease of native coronary artery without angina pectoris
CPT/HCPCS: 99284

== ENCOUNTER 2018-06-21 13:49 | Inpatient (IN) | payer MEDICARE ==
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
--- NOTE | 2018-06-18 15:30 | RADIOLOGY REPORT (SQ) ---
EXAM DESCRIPTION: KUB/ABDOMEN (SINGLE VIEW) COMPLETED DATE/TIME: 06/18/2018 3:13 pm REASON FOR STUDY: abd pain COMPARISON: KUB 01/02/2013 NUMBER OF VIEWS: One view. TECHNIQUE: Supine radiographic image of the abdomen acquired. LIMITATIONS: None. FINDINGS: BOWEL GAS PATTERN: Abnormal but nonspecific bowel gas pattern with air in nondistended sto mach small bowel and colon. Findings could reflect an ileus. CALCIFICATIONS: No suspicious calcifications. SOFT TISSUES: No gross mass or suggestion of organomegaly. HARDWARE: Abdominal aorta stent graft unchanged. Clips right upper quadrant post cholecystectomy. V ascular surgery clips right inguinal region. Upper lumbar kyphoplasty BONES: No acute fracture. No worrisome bone lesions. OTHER: No other significant finding. IMPRESSION: Nonspecific bowel gas pattern TECHNICAL DOCUMENTATION: JOB ID: [id number] [email or web address]- All Rights Reserved Reading location - IP/workstation name: [email or web address]
[2018-06-18 15:38] LABS: HEMOGLOBIN 10.9 g/dL (12.0-15.5); MEAN CORPUSCULAR HEMOGLOBIN 28.8 pg (27.0-33.4); MEAN CORPUSCULAR HGB CONC 32.8 g/dL (32.0-36.0); MEAN CORPUSCULAR VOLUME 88 fl (80-97); PLATELET COUNT 272 10^3/uL (150-450); RED BLOOD COUNT 3.76 10^6/uL (3.72-5.28); WHITE BLOOD COUNT 7.4 10^3/uL (4.0-10.5)
[2018-06-18 15:52] LABS: ALANINE AMINOTRANSFERASE 19 U/L (9-52); ALBUMIN 2.9 g/dL (3.5-5.0); ALKALINE PHOSPHATASE 80 U/L (38-126); ANION GAP 6 (5-19); ASPARTATE AMINO TRANSFERASE 13 U/L (14-36); BILIRUBIN,DIRECT 0.2 mg/dL (0.0-0.4); BILIRUBIN,TOTAL 0.4 mg/dL (0.2-1.3); BLOOD UREA NITROGEN 13 mg/dL (7-20); CALCIUM 9.1 mg/dL (8.4-10.2); CARBON DIOXIDE 26 mmol/L (22-30); CHLORIDE 110 mmol/L (98-107); GLUCOSE 76 mg/dL (75-110); TOTAL PROTEIN 5.4 g/dL (6.3-8.2)
[2018-06-18 16:10] LABS: ABSOLUTE MONOCYTES # (MANUAL) 0.2 10^3/uL (0.1-1.4); ABSOLUTE NEUTROPHILS# (MANUAL) 6.1 10^3/uL (1.7-8.2); BASOPHILS % (MANUAL) 1 % (0-2); EOSINOPHILS % (MANUAL) 1 % (0-6); LYMPHOCYTES % (MANUAL) 13 % (13-45); MONOCYTES % (MANUAL) 3 % (3-13); SEGMENTED NEUTROPHILS % (MAN) 82 % (42-78); TOTAL CELLS COUNTED 100
[2018-06-18 16:11] LABS: PLATELET COMMENT ADEQUATE
[2018-06-18 16:14] LABS: ANISOCYTOSIS 1+; HYPOCHROMASIA 1+; OVALOCYTES 1+; TEAR DROP CELLS SLIGHT
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
[2018-06-18 17:24] LABS: APPEARANCE,URINE SLIGHTLY-CLOUDY; BILIRUBIN,URINE NEGATIVE (NEGATIVE); COLOR,URINE YELLOW; GLUCOSE, URINE NEGATIVE (NEGATIVE); KETONES,URINE NEGATIVE (NEGATIVE); LEUKOCYTE ESTERASE,URINE SMALL (NEGATIVE); NITRITE,URINE NEGATIVE (NEGATIVE); PROTEIN,URINE NEGATIVE (NEGATIVE); URINE SPECIFIC GRAVITY 1.025
[2018-06-19] MEDS: APIXABAN 2.5 MG TABLET PO SCH ×2 (10:11→18:27)
[2018-06-19] MEDS: LISINOPRIL 5 MG TABLET PO SCH (10:11)
[2018-06-20] MEDS: LISINOPRIL 5 MG TABLET PO SCH (10:11)
[2018-06-20] MEDS: APIXABAN 2.5 MG TABLET PO SCH (10:11)
[2018-06-20] MEDS: METOPROLOL SUCCINATE 50 MG TAB.SR.24H PO SCH (10:11)
--- NOTE | 2018-06-20 10:15 | ER Document Report ---
Doctor's Note Notes: 06/20/18 10:13 Rounds: Chart reviewed and attempted patient interviewed. Patient is confused and probably altered mental status from her dementia. She is being evaluated for that as well as agitated behavior and hyperactivity. She was diagnosed with dementia. Family cannot take care of her at home. Patient's labs were normal except for a potassium of 3.0. I am giving her 40 mEq of potassium chloride this morning. Her vital signs of all been normal. Afebrile. Patient appears to be medically stable for transfer or discharge. Yahir Do MD
[2018-06-20] MEDS: RISPERIDONE 0.25 MG TABLET PO SCH (11:04)
[2018-06-20] MEDS: BUSPIRONE HCL 10 MG TABLET PO SCH (11:04)
[2018-06-20] MEDS: DIVALPROEX SODIUM 250 MG TAB.SR.24H PO SCH (11:05)
[2018-06-21] MEDS: BUSPIRONE HCL 10 MG TABLET PO SCH ×3 (01:48→17:22)
[2018-06-21] MEDS: DIVALPROEX SODIUM 250 MG TAB.SR.24H PO SCH ×3 (01:48→17:22)
[2018-06-21] MEDS: APIXABAN 2.5 MG TABLET PO SCH ×3 (01:48→17:21)
[2018-06-21] MEDS: RISPERIDONE 0.25 MG TABLET PO SCH ×3 (01:48→17:22)
--- NOTE | 2018-06-21 08:46 | ER Document Report ---
ED Medical Screen (RME) - General Chief Complaint: Psych Problem Stated Complaint: PSYCH EVAL Time Seen by Provider: 06/18/18 14:25 Primary Care Provider: ROBERT HARRIS DO [Primary Care Provider] - Follow up as needed Mode of Arrival: Medic Notes: Patient boarding the ED for social needs. Apparently complained of left leg pain from chronic contractures this morning and was given Tylenol. Feeling better. On my assessment is awake and alert eating breakfast. No interventions needed at this time. TRAVEL OUTSIDE OF THE [place] IN LAST 30 DAYS: No - Related Data Allergies/Adverse Reactions: egg Allergy (Verified 06/03/18 09:56) Egg Derived Allergy (Verified 06/03/18 09:56) egg yolk Allergy (Verified 06/03/18 09:56) Past Medical History - Social History Chew tobacco use (# tins/day): No Frequency of alcohol use: None Drug Abuse: None - Past Medical History Cardiac Medical History: Reports: Hx Coronary Artery Disease, Hx Hypercholesterolemia, Hx Peripheral Vascular Disease Denies: Hx Heart Attack, Hx Hypertension Pulmonary Medical History: Denies: Hx Asthma, Hx Bronchitis, Hx COPD, Hx Pneumonia, Hx Tuberculosis Neurological Medical History: Denies: Hx Cerebrovascular Accident, Hx Seizures Renal/ Medical History: Reports: Hx Kidney Stones. Denies: Hx Peritoneal Di alysis Musculoskeltal Medical History: Reports Hx Arthritis Psychiatric Medical History: Reports: Hx Depression Past Surgical History: Reports: Hx Appendectomy, Hx Cardiac Catheterization - stents, Hx Cardiac Surgery - stent, Hx Cholecystectomy, Hx Coronary Stent, Hx Herniorrhaphy - Umbilical hernia, Hx Hysterectomy, Hx Oral Surgery, Hx Orthopedic Surgery - L1 vertebroplasty, Hx Umbilical Hernia, Hx Vascular Surgery - Aortobiiliac iliac stent within an abdominal aortic aneurysm - Immunizations Immunizations up to date: Yes Hx Diphtheria, Pertussis, Tetanus Vaccination: Yes History of Influenza Vaccine for 12/2016 - 05/2017 Season: Unknown Physical Exam - Vital signs Vitals: Temp Pulse Resp BP Pulse Ox 97.4 F 72 18 170/52 H 100 06/18/18 14:02 06/18/18 14:02 06/18/18 14:02 06/18/18 14:02 06/18/18 14:02 Course - Vital Signs Vital signs: Temp Pulse Resp BP Pulse Ox 97.6 F 87 20 149/53 H 98 06/20/18 22:30 06/21/18 02:30 06/20/18 22:30 06/21/18 02:30 06/20/18 22:30 - Laboratory Result Diagrams: 06/18/18 15:00 06/18/18 15:00 Laboratory results interpreted by me: 06/18/18 06/18/18 06/18/18 15:00 15:00 16:41 Hgb 10.9 L Hct 33.0 L RDW 17.0 H Seg Neuts % (Manual) 82 H Potassium 3.0 L* Chloride 110 H Creatinine 0.51 L AST 13 L Total Protein 5.4 L Albumin 2.9 L Urine Urobilinogen 2.0 H Ur Leukocyte Esterase SMALL H Urine Ascorbic Acid 40 H Doctor's Discharge - Discharge Clinical Impression: Dementia Qualifiers: Dementia type: Alzheimer's disease Alzheimer's disease onset: unspecified onset Dementia behavioral disturbance: with behavioral disturbance Qualified Code(s): G30.9 - Alzheimer's disease, unspecified Prescriptions: Haloperidol Lactate [Haldol Inj 5 Mg/Ml Vial] 2.5 mg IM ONCE #1 vial Referrals: ROBERT HARRIS DO [Primary Care Provider] - Follow up as needed
[2018-06-21] MEDS: METOPROLOL SUCCINATE 50 MG TAB.SR.24H PO SCH (10:20)
[2018-06-21] MEDS: LISINOPRIL 5 MG TABLET PO SCH (10:20)
[~2018-06-21 13:49] MED LIST: ACETAMINOPHEN 325 MG TABLET PO ONE; HALOPERIDOL LACTATE INJ 5 MG/1 ML VIAL IM ONE; METOPROLOL SUCCINATE 50 MG TAB.SR.24H PO ONE; POTASSIUM CHLORIDE 10 MEQ CAPSULE.ER PO ONE
[2018-06-22] MEDS: APIXABAN 2.5 MG TABLET PO SCH ×2 (09:16→17:18)
[2018-06-22] MEDS: BUSPIRONE HCL 10 MG TABLET PO SCH ×2 (09:16→17:18)
[2018-06-22] MEDS: METOPROLOL SUCCINATE 50 MG TAB.SR.24H PO SCH (09:17)
[2018-06-22] MEDS: RISPERIDONE 0.25 MG TABLET PO SCH ×2 (09:17→17:18)
[2018-06-22] MEDS: LISINOPRIL 5 MG TABLET PO SCH (09:17)
[2018-06-22] MEDS: DIVALPROEX SODIUM 250 MG TAB.SR.24H PO SCH ×2 (09:18→17:18)
--- NOTE | 2018-06-22 10:18 | ER Document Report ---
Doctor's Note Notes: 06/22/18 10:16 Patient seen and examined, chart reviewed. She states she really wants to be left alone to sleep. She denies any acute complaints. Patient is drowsy but arouses with verbal stimuli. Heart is regular rate and rhythm, lungs are clear to auscultation bilaterally. Abdomen is soft, nontender, normoactive bowel sounds. Skin is warm and dry. After review of the chart, it is noted that the patient's potassium was 3. She has been here for several days it is not been rechecked. Her magnesium was never checked. There was some concern in her urinalysis over 20 white blood cells per high-power field on a urinalysis that was a straight cath obtained specimen. She has not been receiving antibiotics as far as I can tell. We will recheck that to be sure there is no evidence of infection. We will continue to follow, awaiting custody from DSS or appropriate discharge planning per social workers. 06/22/18 11:59 Urine, electrolytes reviewed and found to be unremarkable. Patient remains stable, will follow.
[2018-06-22 11:16] LABS: BLOOD UREA NITROGEN 10 mg/dL (7-20); CALCIUM 9.2 mg/dL (8.4-10.2); GLUCOSE 135 mg/dL (75-110); POTASSIUM 4.4 mmol/L (3.6-5.0)
[2018-06-22 11:21] LABS: CARBON DIOXIDE 27 mmol/L (22-30); CHLORIDE 108 mmol/L (98-107); SODIUM 139.2 mmol/L (137-145)
[2018-06-22 11:22] LABS: ANION GAP 4 (5-19)
[2018-06-22 11:40] LABS: APPEARANCE,URINE SLIGHTLY-CLOUDY; BILIRUBIN,URINE NEGATIVE (NEGATIVE); COLOR,URINE YELLOW; GLUCOSE, URINE NEGATIVE (NEGATIVE); KETONES,URINE NEGATIVE (NEGATIVE); LEUKOCYTE ESTERASE,URINE TRACE (NEGATIVE); NITRITE,URINE NEGATIVE (NEGATIVE); PROTEIN,URINE NEGATIVE (NEGATIVE); URINE SPECIFIC GRAVITY 1.003; UROBILINOGEN,URINE NEGATIVE mg/dL (<2.0)
--- NOTE | 2018-06-23 09:13 | ER Document Report ---
Doctor's Note Notes: 06/23/18 09:12 This is an 82-year-old female with a history of dementia who was brought in to the emergency room for senior living issues. Patient was medically cleared as well as psychologically cleared and she is currently awaiting placement. Her labs have been stable. She had initial hypokalemia which has been corrected. Repeat urine analysis does not show any obvious infection. She has remained afebrile and has stable vital signs. The nurse did report that the patient has been coughing. On my assessment, the patient is afebrile and in no respiratory distress. She currently has clear lung sounds. Given the history of cough, I did order chest x-ray which is read by the radiologist as an infiltrate in the left base. I cannot appreciate any obvious infiltrate or pneumonia on the x-ray myself. In any event, she is in no respiratory distress, has a normal white count and is afebrile. I will cover her with oral doxycycline. As far as her senior living issues, the court was actually in the room today and she had a hearing in room 45 to address senior living ship. The results of that legal in encounter is pending. We will continue to await placement. 06/23/18 15:00
[2018-06-23] MEDS: DIVALPROEX SODIUM 250 MG TAB.SR.24H PO SCH ×2 (09:21→18:37)
[2018-06-23] MEDS: APIXABAN 2.5 MG TABLET PO SCH ×2 (09:21→18:37)
[2018-06-23] MEDS: BUSPIRONE HCL 10 MG TABLET PO SCH ×2 (09:21→18:38)
[2018-06-23] MEDS: LISINOPRIL 5 MG TABLET PO SCH (09:21)
[2018-06-23] MEDS: RISPERIDONE 0.25 MG TABLET PO SCH ×2 (09:22→18:36)
[2018-06-23] MEDS: METOPROLOL SUCCINATE 50 MG TAB.SR.24H PO SCH (09:22)
--- NOTE | 2018-06-23 12:24 | RADIOLOGY REPORT (SQ) ---
EXAM DESCRIPTION: CHEST SINGLE VIEW COMPLETED DATE/TIME: 06/23/2018 12:10 pm REASON FOR STUDY: cough COMPARISON: None. EXAM PARAMETERS: NUMBER OF VIEWS: One view. TECHNIQUE: Single frontal radiographic view of the chest acquired. RADIATION DOSE: NA LIMITATIONS: Leftward patient rotation. FINDINGS: LUNGS AND PLEURA: New left retrocardiac opacity with obscuration of the low the diaphragm. Possibly small left effusion. No pneumothorax. Emphysematous change. MEDIASTINUM AND HILAR STRUCTURES: No masses. Contour normal. HEART AND VASCULAR STRUCTURES: Normal heart size. Aortic atherosclerosis. BONES: Osteopenia. No acute findings. HARDWARE: None in the chest. OTHER: No other significant finding. IMPRESSION: New left lower lobe opacity, possibly atelectasis or infection. Likely small left effus ion. TECHNICAL DOCUMENTATION: JOB ID: [id number] [employer]- All Rights Reserved Reading location - IP/workstation name: [email or web address]
[2018-06-23] MEDS ORDERED: DOXYCYCLINE HYCLATE 100 MG TABLET PO ONE (14:30)
[2018-06-23] MEDS: DOXYCYCLINE HYCLATE 100 MG TABLET PO SCH (18:36)
[2018-06-24] MEDS ORDERED: HYDROCHLOROTHIAZIDE 25 MG TABLET PO ONE (02:03)
[2018-06-24 03:21] LABS: APPEARANCE,URINE CLEAR; BILIRUBIN,URINE NEGATIVE (NEGATIVE); COLOR,URINE YELLOW; GLUCOSE, URINE NEGATIVE (NEGATIVE); KETONES,URINE NEGATIVE (NEGATIVE); LEUKOCYTE ESTERASE,URINE NEGATIVE (NEGATIVE); NITRITE,URINE NEGATIVE (NEGATIVE); PROTEIN,URINE NEGATIVE (NEGATIVE); URINE SPECIFIC GRAVITY 1.011; UROBILINOGEN,URINE NEGATIVE mg/dL (<2.0)
[2018-06-24 11:51] LABS: VENOUS BLOOD BASE EXCESS 4.6 mmol/L; VENOUS BLOOD HCO3 31.4 mmol/L (20-32); VENOUS BLOOD PCO2 56.8 mmHg (35-63); VENOUS BLOOD PH 7.36 (7.30-7.42)
[2018-06-24 11:52] LABS: HEMATOCRIT 36.5 % (36.0-47.0); HEMOGLOBIN 12.1 g/dL (12.0-15.5); MEAN CORPUSCULAR HEMOGLOBIN 29.1 pg (27.0-33.4); MEAN CORPUSCULAR HGB CONC 33.2 g/dL (32.0-36.0); MEAN CORPUSCULAR VOLUME 88 fl (80-97); PLATELET COUNT 259 10^3/uL (150-450); RED BLOOD COUNT 4.16 10^6/uL (3.72-5.28); RED CELL DISTRIBUTION WIDTH 17.3 % (11.5-14.0)
[2018-06-24 11:58] LABS: INTERNATIONAL RATION (INR) 0.95; PROTHROMBIN TIME 13.2 SEC (11.4-15.4)
[2018-06-24 12:03] LABS: ALANINE AMINOTRANSFERASE 14 U/L (9-52); ALBUMIN 3.3 g/dL (3.5-5.0); ALKALINE PHOSPHATASE 99 U/L (38-126); ASPARTATE AMINO TRANSFERASE 18 U/L (14-36); BILIRUBIN,DIRECT 0.3 mg/dL (0.0-0.4); BILIRUBIN,TOTAL 0.6 mg/dL (0.2-1.3); BLOOD UREA NITROGEN 9 mg/dL (7-20); CALCIUM 9.6 mg/dL (8.4-10.2); GLUCOSE 91 mg/dL (75-110); POTASSIUM 4.4 mmol/L (3.6-5.0); TOTAL PROTEIN 6.6 g/dL (6.3-8.2)
[2018-06-24 12:09] LABS: CARBON DIOXIDE 31 mmol/L (22-30); CHLORIDE 105 mmol/L (98-107); SODIUM 140.6 mmol/L (137-145)
[2018-06-24] MEDS ORDERED: LEVOFLOXACIN 750 MG/D5W RTU 750 MG/150 ML RTUPB IV ONE (12:09)
[2018-06-24] MEDS ORDERED: NORMAL SALINE 1000 ML 1,000 ML IV ONE (12:10)
[2018-06-24 12:15] LABS: ABSOLUTE LYMPHOCYTES# (MANUAL) 0.9 10^3/uL (0.5-4.7); ABSOLUTE MONOCYTES # (MANUAL) 0.2 10^3/uL (0.1-1.4); ABSOLUTE NEUTROPHILS# (MANUAL) 4.9 10^3/uL (1.7-8.2); BASOPHILS % (MANUAL) 0 % (0-2); EOSINOPHILS % (MANUAL) 1 % (0-6); LYMPHOCYTES % (MANUAL) 15 % (13-45); MONOCYTES % (MANUAL) 3 % (3-13); SEGMENTED NEUTROPHILS % (MAN) 81 % (42-78); TOTAL CELLS COUNTED 100
[2018-06-24 12:16] LABS: ANION GAP 5 (5-19)
[2018-06-24 12:18] LABS: ANISOCYTOSIS 1+; OVALOCYTES SLIGHT; PLATELET COMMENT ADEQUATE; POIKILOCYTOSIS SLIGHT; TEAR DROP CELLS SLIGHT; TOXIC GRANULATION SLIGHT; TOXIC VACUOLATION PRESENT
[2018-06-24] MEDS: BUSPIRONE HCL 10 MG TABLET PO SCH ×2 (15:09→19:03)
[2018-06-24] MEDS: DIVALPROEX SODIUM 250 MG TAB.SR.24H PO SCH ×2 (15:10→19:03)
[2018-06-24] MEDS: APIXABAN 2.5 MG TABLET PO SCH ×2 (15:10→19:03)
[2018-06-24] MEDS: RISPERIDONE 0.25 MG TABLET PO SCH ×2 (15:11→19:04)
[2018-06-24] MEDS: LISINOPRIL 5 MG TABLET PO SCH (15:18)
[2018-06-24] MEDS: METOPROLOL SUCCINATE 50 MG TAB.SR.24H PO SCH (15:18)
[2018-06-24] MEDS: DOXYCYCLINE HYCLATE 100 MG TABLET PO SCH (15:21)
--- NOTE | 2018-06-24 18:09 | PDOC H&P ---
History of Present Illness Admission Date/PCP: 06/24/18 12:58 ROBERT HARRIS DO History of Present Illness: YAMILEX BENJAMIN is a 82 year old female who was brought to the ER about 6 days ago by her family because of worsening dementia. They were trying to get placement for her and keeping her in the ER but were unsuccessful. Apparently today she had some decline in her mental status and a chest x-ray was ordered and it was thought there was possibly some left lower lobe pneumonia. The patient had not had this sort of a mental status before earlier on her ER stay. She is being a dmitted for treatment of her pneumonia and her apparent new onset metabolic encephalopathy. Past Medical History Cardiac Medical History: Reports: Coronary Artery Disease, Hyperlipidema, Peripheral Vascular Disease Denies: Myocardial Infarction, Hypertension Pulmonary Medical History: Denies: Asthma, Bronchitis, Chronic Obstructive Pulmonary Disease (COPD), Pneumonia, Tuberculosis Neurological Medical History: Denies: Seizures Musculoskeltal Medical History: Reports: Arthritis Psychiatric Medical History: Reports: Depression Hematology: Denies: Anemia Past Surgical History Past Surgical History: Reports: Appendectomy, Cardiac Catheterization - stents, Cholecystectomy, Coronary Stent, Herniorrhaphy - Umbilical hernia, Hysterectomy, Orthopedic Surgery - L1 vertebroplasty, Vascular Surgery - Aortobiiliac iliac stent within an abdominal aortic aneurysm Social History Smoking Status: Unknown if Ever Smoked Frequency of Alcohol Use: None Hx Recreational Drug Use: No Hx Prescription Drug Abuse: No - Advance Directive Resuscitation Status: Full Code Family History Family History: None, Reviewed & Not Pertinent Parental Family History Reviewed: No - Unable to obtain Children Family History Reviewed: No - Unable to obtain Sibling(s) Family History Reviewed.: No - Unable to obtain Medication/Allergy Home Medications: Lisinopril [Prinivil 5 mg Tablet] 5 mg PO DAILY tablet 12/04/17 Metoprolol Succinate [Toprol Xl 50 mg Tab.sr] 100 mg PO DAILY tab.sr.24h 12/04/17 Omeprazole 20 mg PO DAILY 05/21/18 Apixaban [Eliquis 2.5 mg Tablet] 2.5 mg PO BID 06/24/18 Allergies/Adverse Reactions: egg Allergy (Verified 06/03/18 09:56) Egg Derived Allergy (Verified 06/03/18 09:56) egg yolk Allergy (Verified 06/03/18 09:56) Review of Systems ROS unobtainable: Due to mental status Physical Exam Vital Signs: Temp Pulse Resp BP Pulse Ox 97.5 F 82 14 153/66 H 90 L 06/24/18 16:21 06/24/18 16:21 06/24/18 16:21 06/24/18 16:21 06/24/18 16:21 Intake & Output 06/23/18 06/24/18 06/25/18 06:59 06:59 06:59 Intake Total 1150 Balance 1150 General appearance: PRESENT: cooperative, disheveled, mild distress, thin, other - She looked like she attempted to answer my questions but spoke in volume so low that I could not hear what she was saying to tell if it made any sense Head exam: PRESENT: atraumatic, normocephalic Eye exam: PRESENT: EOMI, PERRLA. ABSENT: conjunctival injection, nystagmus, scleral icterus Ear exam: PRESENT: normal external ear exam Mouth exam: PRESENT: moist, neck supple Teeth exam: PRESENT: edentulous Neck exam: PRESENT: full ROM. ABSENT: carotid bruit, JVD, lymphadenopathy, meningismus, tenderness, thyromegaly Respiratory exam: PRESENT: clear to auscultation seth, symmetrical, unlabored. ABSENT: accessory muscle use, crackles, prolonged expiratory phas, rhonchi, tachypnea, wheezes Cardiovascular exam: PRESENT: RRR, +S1, +S2. ABSENT: systolic murmur Pulses: PRESENT: normal carotid pulses Vascular exam: PRESENT: normal capillary refill GI/Abdominal exam: PRESENT: normal bowel sounds, soft. ABSENT: distended, guarding, rebound, tenderness Extremities exam: ABSENT: clubbing, pedal edema Musculoskeletal exam: PRESENT: normal inspection. ABSENT: deformity Neurological exam: PRESENT: altered, awake, oriented to person, other - Could not adequately assess cranial nerves due to her mental status, but she did not appear to have any focal deficits. ABSENT: oriented to place, oriented to situation Psychiatric exam: PRESENT: flat affect Skin exam: PRESENT: dry, warm Results Laboratory Results: 06/24/18 11:34 06/24/18 11:34 06/24/18 06/24/18 06/24/18 02:30 11:34 11:34 WBC 6.0 RBC 4.16 Hgb 12.1 Hct 36.5 MCV 88 MCH 29.1 MCHC 33.2 RDW 17.3 H Plt Count 259 Seg Neutrophils % Not Reportable Lymphocytes % Not Reportable Monocytes % Not Reportable Eosinophils % Not Reportable Basophils % Not Reportable Absolute Neutrophils Not Reportable Absolute Lymphocytes Not Reportable Absolute Monocytes Not Reportable Absolute Eosinophils Not Reportable Absolute Basophils Not Reportable VBG pH VBG pCO2 VBG HCO3 VBG Base Excess Sodium 140.6 Potassium 4.4 Chloride 105 Carbon Dioxide 31 H Anion Gap 5 BUN 9 Creatinine 0.59 Est GFR ( Amer) > 60 Est GFR (Non-Af Amer) > 60 Glucose 91 Lactic Acid Calcium 9.6 Total Bilirubin 0.6 AST 18 ALT 14 Alkaline Phosphatase 99 Total Protein 6.6 Albumin 3.3 L Urine Color YELLOW Urine Appearance CLEAR Urine pH 8.0 Ur Specific Harris 1.011 Urine Protein NEGATIVE Urine Glucose (UA) NEGATIVE Urine Ketones NEGATIVE Urine Blood MODERATE H Urine Nitrite NEGATIVE Ur Leukocyte Esterase NEGATIVE Urine WBC (Auto) 2 Urine RBC (Auto) 0 06/24/18 06/24/18 11:34 11:34 WBC RBC Hgb Hct MCV MCH MCHC RDW Plt Count Seg Neutrophils % Lymphocytes % Monocytes % Eosinophils % Basophils % Absolute Neutrophils Absolute Lymphocytes Absolute Monocytes Absolute Eosinophils Absolute Basophils VBG pH 7.36 VBG pCO2 56.8 VBG HCO3 31.4 VBG Base Excess 4.6 Sodium Potassium Chloride Carbon Dioxide Anion Gap BUN Creatinine Est GFR ( Amer) Est GFR (Non-Af Amer) Glucose Lactic Acid 1.3 Calcium Total Bilirubin AST ALT Alkaline Phosphatase Total Protein Albumin Urine Color Urine Appearance Urine pH Ur Specific Harris Urine Protein Urine Glucose (UA) Urine Ketones Urine Blood Urine Nitrite Ur Leukocyte Esterase Urine WBC (Auto) Urine RBC (Auto) Impressions: KUB X-Ray 06/18/18 14:45 IMPRESSION: Nonspecific bowel gas pattern Chest X-Ray 06/23/18 11:52 IMPRESSION: New left lower lobe opacity, possibly atelectasis or infection. Likely small left effusion. Assessment and Plan - Diagnosis (1) Left lower lobe pneumonia Qualifiers: Pneumonia type: due to unspecified organism Qualified Code(s): J18.1 - Lobar pneumonia, unspecified organism Is this a current diagnosis for this admission?: Yes Plan: Cultures have been drawn and are pending. We have started her on Levaquin. No history of any aspiration. (2) Dementia Qualifiers: Dementia type: Alzheimer's disease Alzheimer's disease onset: unspecified onset Dementia behavioral disturbance: with behavioral disturbance Qualified Code(s): G30.9 - Alzheimer's disease, unspecified; F02.81 - Dementia in other diseases classified elsewhere with behavioral disturbance Is this a current diagnosis for this admission?: Yes Plan: Will continue Avni Aparicio and Yasmin (3) Acute metabolic encephalopathy Is this a current diagnosis for this admission?: Yes Plan: Secondary to the pneumonia, will monitor for progress - Time Time Spent with patient: 35 or more minutes - Inpatient Certification Based on my medical assessment, after consideration of the patient's comorbidities, presenting symptoms, or acuity I expect that the services needed warrant INPATIENT care.: Yes I certify that my determination is in accordance with my understanding of Medicare's requirements for reasonable and necessary INPATIENT services [42 CFR 412.3e].: Yes Medical Necessity: Need Close Monitoring Due to Risk of Patient Decompensation, Need for IV Antibiotics
--- NOTE | 2018-06-24 18:55 | ADVANCED CARE ---
- Diagnosis (1) Left lower lobe pneumonia Diagnosis Current: Yes (3) Acute metabolic encephalopathy Diagnosis Current: Yes Resuscitation Status: Full Code Discussion: She had previously been a DNR but her family has insisted that she be a full code Time Spent: 10
[2018-06-25 07:10] LABS: HEMATOCRIT 33.3 % (36.0-47.0); HEMOGLOBIN 11.3 g/dL (12.0-15.5); MEAN CORPUSCULAR HEMOGLOBIN 29.5 pg (27.0-33.4); MEAN CORPUSCULAR HGB CONC 33.9 g/dL (32.0-36.0); MEAN CORPUSCULAR VOLUME 87 fl (80-97); PLATELET COUNT 260 10^3/uL (150-450); RED BLOOD COUNT 3.83 10^6/uL (3.72-5.28); RED CELL DISTRIBUTION WIDTH 17.1 % (11.5-14.0); WHITE BLOOD COUNT 6.3 10^3/uL (4.0-10.5)
[2018-06-25 07:33] LABS: ANION GAP 7 (5-19); BLOOD UREA NITROGEN 17 mg/dL (7-20); CALCIUM 9.2 mg/dL (8.4-10.2); CARBON DIOXIDE 29 mmol/L (22-30); CHLORIDE 104 mmol/L (98-107); GLUCOSE 88 mg/dL (75-110); SODIUM 139.7 mmol/L (137-145)
[2018-06-25] MEDS: APIXABAN 2.5 MG TABLET PO SCH ×2 (10:27→18:07)
[2018-06-25] MEDS: BUSPIRONE HCL 10 MG TABLET PO SCH ×2 (10:28→18:07)
[2018-06-25] MEDS: LISINOPRIL 5 MG TABLET PO SCH (10:28)
[2018-06-25] MEDS: DIVALPROEX SODIUM 250 MG TAB.SR.24H PO SCH ×3 (10:28→18:33)
[2018-06-25] MEDS: RISPERIDONE 0.25 MG TABLET PO SCH ×2 (10:28→18:07)
[2018-06-25] MEDS: METOPROLOL SUCCINATE 50 MG TAB.SR.24H PO SCH (10:28)
--- NOTE | 2018-06-25 16:21 | PDOC PROGRESS REPORT ---
Subjective Progress Note for:: 06/25/18 Subjective:: No adverse events overnight. No new complaints. Vital signs been stable. Afebrile. No cough. She has been quite ornery, saying some ugly things intermittently to the nurses and occasionally throwing things in her room, but she is redirectable. Reason For Visit: PNEUMONIA,ENCEPHALOPATHY Physical Exam Vital Signs: Temp Pulse Resp BP Pulse Ox 98.5 F 75 18 119/40 L 99 06/25/18 07:27 06/25/18 12:31 06/25/18 12:31 06/25/18 12:31 06/25/18 12:31 Intake & Output 06/24/18 06/25/18 06/26/18 06:59 06:59 06:59 Intake Total 1386 577 Balance 1386 577 Weight 41.1 kg General appearance: PRESENT: cooperative, disheveled, no apparent distress, thin, occasionally will make various kinds of mean comments Respiratory exam: PRESENT: clear to auscultation seth, symmetrical, unlabored. ABSENT: accessory muscle use, crackles, prolonged expiratory phas, rhonchi, tachypnea, wheezes Cardiovascular exam: PRESENT: RRR, +S1, +S2. ABSENT: systolic murmur Pulses: PRESENT: normal carotid pulses Vascular exam: PRESENT: normal capillary refill GI/Abdominal exam: PRESENT: normal bowel sounds, soft. ABSENT: distended, guarding, rebound, tenderness Extremities exam: ABSENT: clubbing, pedal edema Musculoskeletal exam: PRESENT: normal inspection. ABSENT: deformity Neurological exam: PRESENT: awake, oriented to person ABSENT: oriented to place, oriented to situation Psychiatric exam: PRESENT: flat affect Skin exam: PRESENT: dry, warm Results Laboratory Results: 06/25/18 06:43 06/25/18 06:43 06/25/18 06/25/18 06:43 06:43 WBC 6.3 RBC 3.83 Hgb 11.3 L Hct 33.3 L MCV 87 MCH 29.5 MCHC 33.9 RDW 17.1 H Plt Count 260 Sodium 139.7 Potassium 4.0 Chloride 104 Carbon Dioxide 29 Anion Gap 7 BUN 17 Creatinine 0.73 Est GFR ( Amer) > 60 Est GFR (Non-Af Amer) > 60 Glucose 88 Calcium 9.2 Impressions: KUB X-Ray 06/18/18 14:45 IMPRESSION: Nonspecific bowel gas pattern Chest X-Ray 06/23/18 11:52 IMPRESSION: New left lower lobe opacity, possibly atelectasis or infection. Likely small left effusion. Assessment and Plan - Diagnosis (1) Left lower lobe pneumonia Qualifiers: Pneumonia type: due to unspecified organism Qualified Code(s): J18.1 - Lobar pneumonia, unspecified organism Is this a current diagnosis for this admission?: Yes Plan: Continue Levaquin. Remains afebrile without a cough. (2) Dementia Qualifiers: Dementia type: Alzheimer's disease Alzheimer's disease onset: unspecified onset Dementia behavioral disturbance: with behavioral disturbance Qualified Code(s): G30.9 - Alzheimer's disease, unspecified; F02.81 - Dementia in other diseases classified elsewhere with behavioral disturbance Is this a current diagnosis for this admission?: Yes Plan: Will continue BuSpar, Depakote, and Risperdal (3) Acute metabolic encephalopathy Is this a current diagnosis for this admission?: Yes Plan: I think this is resolved. I believe she is currently at her baseline. - Time Time Spent with patient: 15-24 minutes
[2018-06-26 06:07] LABS: HEMATOCRIT 34.1 % (36.0-47.0); HEMOGLOBIN 11.4 g/dL (12.0-15.5); MEAN CORPUSCULAR HEMOGLOBIN 29.2 pg (27.0-33.4); MEAN CORPUSCULAR HGB CONC 33.5 g/dL (32.0-36.0); MEAN CORPUSCULAR VOLUME 87 fl (80-97); PLATELET COUNT 253 10^3/uL (150-450); RED BLOOD COUNT 3.92 10^6/uL (3.72-5.28); RED CELL DISTRIBUTION WIDTH 17.2 % (11.5-14.0)
[2018-06-26 06:29] LABS: ANION GAP 7 (5-19); BLOOD UREA NITROGEN 18 mg/dL (7-20); CALCIUM 9.4 mg/dL (8.4-10.2); CARBON DIOXIDE 25 mmol/L (22-30); CHLORIDE 107 mmol/L (98-107); GLUCOSE 104 mg/dL (75-110); POTASSIUM 4.2 mmol/L (3.6-5.0); SODIUM 138.6 mmol/L (137-145)
[2018-06-26] MEDS: METOPROLOL SUCCINATE 50 MG TAB.SR.24H PO SCH (09:08)
[2018-06-26] MEDS: APIXABAN 2.5 MG TABLET PO SCH ×2 (09:08→17:14)
[2018-06-26] MEDS: DIVALPROEX SODIUM 250 MG TAB.SR.24H PO SCH ×2 (09:09→17:14)
[2018-06-26] MEDS: RISPERIDONE 0.25 MG TABLET PO SCH ×2 (09:09→17:14)
[2018-06-26] MEDS: BUSPIRONE HCL 10 MG TABLET PO SCH ×2 (09:09→17:14)
[2018-06-26] MEDS: LISINOPRIL 5 MG TABLET PO SCH (09:09)
[2018-06-26] MEDS ORDERED: LORAZEPAM INJ 2 MG/1 ML VIAL IV ONE (09:30)
--- NOTE | 2018-06-26 14:32 | PDOC PROGRESS REPORT ---
Subjective Progress Note for:: 06/26/18 Subjective:: No adverse events overnight. No new complaints. Vital signs been stable. No fevers. No cough. No dyspnea. Reason For Visit: PNEUMONIA,ENCEPHALOPATHY Physical Exam Vital Signs: Temp Pulse Resp BP Pulse Ox 97.8 F 86 19 155/52 H 100 06/26/18 07:25 06/26/18 12:44 06/26/18 12:44 06/26/18 12:44 06/26/18 12:44 Intake & Output 06/25/18 06/26/18 06/27/18 06:59 06:59 06:59 Intake Total 1386 577 Balance 1386 577 Weight 41.1 kg 45.3 kg General appearance: PRESENT: cooperative, disheveled, no apparent distress, thin, occasionally will make various kinds of mean comments Respiratory exam: PRESENT: clear to auscultation seth, symmetrical, unlabored. ABSENT: accessory muscle use, crackles, prolonged expiratory phas, rhonchi, tachypnea, wheezes Cardiovascular exam: PRESENT: RRR, +S1, +S2. ABSENT: systolic murmur Pulses: PRESENT: normal carotid pulses Vascular exam: PRESENT: normal capillary refill GI/Abdominal exam: PRESENT: normal bowel sounds, soft. ABSENT: distended, guarding, rebound, tenderness Extremities exam: ABSENT: clubbing, pedal edema Musculoskeletal exam: PRESENT: normal inspection. ABSENT: deformity Neurological exam: PRESENT: awake, oriented to person ABSENT: oriented to place, oriented to situation Psychiatric exam: PRESENT: flat affect Skin exam: PRESENT: dry, warm Results Laboratory Results: 06/26/18 05:02 06/26/18 05:02 06/26/18 06/26/18 05:02 05:02 WBC 6.0 RBC 3.92 Hgb 11.4 L Hct 34.1 L MCV 87 MCH 29.2 MCHC 33.5 RDW 17.2 H Plt Count 253 Sodium 138.6 Potassium 4.2 Chloride 107 Carbon Dioxide 25 Anion Gap 7 BUN 18 Creatinine 0.58 Est GFR ( Amer) > 60 Est GFR (Non-Af Amer) > 60 Glucose 104 Calcium 9.4 Impressions: KUB X-Ray 06/18/18 14:45 IMPRESSION: Nonspecific bowel gas pattern Chest X-Ray 06/23/18 11:52 IMPRESSION: New left lower lobe opacity, possibly atelectasis or infection. Likely small left effusion. Assessment and Plan - Diagnosis (1) Left lower lobe pneumonia Qualifiers: Pneumonia type: due to unspecified organism Qualified Code(s): J18.1 - Lobar pneumonia, unspecified organism Is this a current diagnosis for this admission?: Yes Plan: Continue Levaquin. Remains afebrile without a cough. (2) Dementia Qualifiers: Dementia type: Alzheimer's disease Alzheimer's disease onset: unspecified onset Dementia behavioral disturbance: with behavioral disturbance Qualified Code(s): G30.9 - Alzheimer's disease, unspecified; F02.81 - Dementia in other diseases classified elsewhere with behavioral disturbance Is this a current diagnosis for this admission?: Yes Plan: Will continue BuSpar, Depakote, and Risperdal (3) Acute metabolic encephalopathy Is this a current diagnosis for this admission?: Yes Plan: I think this is resolved. I believe she is currently at her baseline. - Time Time Spent with patient: 15-24 minutes
[2018-06-27 07:08] LABS: HEMATOCRIT 33.8 % (36.0-47.0); HEMOGLOBIN 11.1 g/dL (12.0-15.5); MEAN CORPUSCULAR HEMOGLOBIN 29.1 pg (27.0-33.4); MEAN CORPUSCULAR HGB CONC 32.9 g/dL (32.0-36.0); MEAN CORPUSCULAR VOLUME 89 fl (80-97); PLATELET COUNT 248 10^3/uL (150-450); RED BLOOD COUNT 3.82 10^6/uL (3.72-5.28); RED CELL DISTRIBUTION WIDTH 17.6 % (11.5-14.0)
[2018-06-27 07:27] LABS: ANION GAP 5 (5-19); BLOOD UREA NITROGEN 16 mg/dL (7-20); CALCIUM 9.1 mg/dL (8.4-10.2); CARBON DIOXIDE 28 mmol/L (22-30); CHLORIDE 106 mmol/L (98-107); GLUCOSE 85 mg/dL (75-110); POTASSIUM 3.9 mmol/L (3.6-5.0); SODIUM 139.1 mmol/L (137-145)
[2018-06-27] MEDS: BUSPIRONE HCL 10 MG TABLET PO SCH ×2 (10:00→17:52)
[2018-06-27] MEDS: APIXABAN 2.5 MG TABLET PO SCH ×2 (10:01→17:52)
[2018-06-27] MEDS: DIVALPROEX SODIUM 250 MG TAB.SR.24H PO SCH ×2 (10:01→17:52)
[2018-06-27] MEDS: RISPERIDONE 0.25 MG TABLET PO SCH ×2 (10:01→17:52)
[2018-06-27] MEDS: LISINOPRIL 5 MG TABLET PO SCH (10:03)
[2018-06-27] MEDS: METOPROLOL SUCCINATE 50 MG TAB.SR.24H PO SCH (10:04)
--- NOTE | 2018-06-27 15:33 | PDOC PROGRESS REPORT ---
Subjective Progress Note for:: 06/27/18 Subjective:: No adverse events overnight. No new complaints. Vital signs been stable. No fevers. No cough. No dyspnea. Reason For Visit: PNEUMONIA,ENCEPHALOPATHY Physical Exam Vital Signs: Temp Pulse Resp BP Pulse Ox 97.7 F 82 20 117/41 L 100 06/27/18 11:04 06/27/18 11:04 06/27/18 11:04 06/27/18 11:04 06/27/18 11:04 Intake & Output 06/26/18 06/27/18 06/28/18 06:59 06:59 06:59 Intake Total 577 591 236 Balance 577 591 236 Weight 45.3 kg 45.3 kg General appearance: PRESENT: cooperative, disheveled, no apparent distress, thin, occasionally will make various kinds of mean comments Respiratory exam: PRESENT: clear to auscultation seth, symmetrical, unlabored. ABSENT: accessory muscle use, crackles, prolonged expiratory phas, rhonchi, tachypnea, wheezes Cardiovascular exam: PRESENT: RRR, +S1, +S2. ABSENT: systolic murmur Pulses: PRESENT: normal carotid pulses Vascular exam: PRESENT: normal capillary refill GI/Abdominal exam: PRESENT: normal bowel sounds, soft. ABSENT: distended, gu arding, rebound, tenderness Extremities exam: ABSENT: clubbing, pedal edema Musculoskeletal exam: PRESENT: normal inspection. ABSENT: deformity Neurological exam: PRESENT: awake, oriented to person ABSENT: oriented to place , oriented to situation Psychiatric exam: PRESENT: flat affect Skin exam: PRESENT: dry, warm Results Laboratory Results: 06/27/18 05:30 06/27/18 05:30 06/27/18 06/27/18 05:30 05:30 WBC 5.0 RBC 3.82 Hgb 11.1 L Hct 33.8 L MCV 89 MCH 29.1 MCHC 32.9 RDW 17.6 H Plt Count 248 Sodium 139.1 Potassium 3.9 Chloride 106 Carbon Dioxide 28 Anion Gap 5 BUN 16 Creatinine 0.60 Est GFR ( Amer) > 60 Est GFR (Non-Af Amer) > 60 Glucose 85 Calcium 9.1 Impressions: KUB X-Ray 06/18/18 14:45 IMPRESSION: Nonspecific bowel gas pattern Chest X-Ray 06/23/18 11:52 IMPRESSION: New left lower lobe opacity, possibly atelectasis or infection. Likely small left effusion. Assessment and Plan - Diagnosis (1) Left lower lobe pneumonia Qualifiers: Pneumonia type: due to unspecified organism Qualified Code(s): J18.1 - Lobar pneumonia, unspecified organism Is this a current diagnosis for this admission?: Yes Plan: Continue Levaquin. Remains afebrile without a cough. (2) Dementia Qualifiers: Dementia type: Alzheimer's disease Alzheimer's disease onset: unspecified onset Dementia behavioral disturbance: with behavioral disturbance Qualified Code(s): G30.9 - Alzheimer's disease, unspecified; F02.81 - Dementia in other diseases classified elsewhere with behavioral disturbance Is this a current diagnosis for this admission?: Yes Plan: Will continue BuSpar, Depakote, and Risperdal (3) Acute metabolic encephalopathy Is this a current diagnosis for this admission?: Yes Plan: I think this is resolved. I believe she is currently at her baseline. - Plan Summary Plan Summary: We will try to get her into a correction facility this week.
[2018-06-28] MEDS: LISINOPRIL 5 MG TABLET PO SCH (10:18)
[2018-06-28] MEDS: BUSPIRONE HCL 10 MG TABLET PO SCH ×2 (10:19→17:00)
[2018-06-28] MEDS: RISPERIDONE 0.25 MG TABLET PO SCH ×2 (10:19→17:00)
[2018-06-28] MEDS: APIXABAN 2.5 MG TABLET PO SCH ×2 (10:19→17:00)
[2018-06-28] MEDS: DIVALPROEX SODIUM 250 MG TAB.SR.24H PO SCH ×2 (10:19→17:00)
[2018-06-28] MEDS: METOPROLOL SUCCINATE 50 MG TAB.SR.24H PO SCH (10:19)
--- NOTE | 2018-06-28 15:32 | PDOC TRANSFER SUMMARY ---
General - Admit/Disc Date/PCP Admission Date/Primary Care Provider: 06/24/18 12:58 ROBERT HARRIS DO Discharge Date: 06/29/18 - Discharge Diagnosis (1) Left lower lobe pneumonia Is this a current diagnosis for this admission?: Yes Summary: She was started on Levaquin, will finish her course for couple more days at the residential facility. (2) Dementia Is this a current diagnosis for this admission?: Yes Summary: This is remains stable at baseline on her home medications (3) Acute metabolic encephalopathy Is this a current diagnosis for this admission?: Yes Summary: Due to pneumonia, this is now resolved her mental status is back at baseline - Additional Information Resuscitation Status: Full Code Discharge Diet: Cardiac Discharge Activity: Balance Activity w/Rest, No Driving, Supervised Activity Prescriptions: Levofloxacin [Levaquin 750 mg Tablet] 750 mg PO DAILY #2 tablet Home Medications: Lisinopril [Prinivil 5 mg Tablet] 5 mg PO DAILY tablet 12/04/17 Metoprolol Succinate [Toprol Xl 50 mg Tab.sr] 100 mg PO DAILY tab.sr.24h 12/04/17 Omeprazole 20 mg PO DAILY 05/21/18 Apixaban [Eliquis 2.5 mg Tablet] 2.5 mg PO BID 06/24/18 Buspirone HCl [Buspar 10 mg Tablet] 5 mg PO BID tablet 06/28/18 Divalproex Sodium [Depakote ER 250 mg Tablet] 250 mg PO BID tab.sr.24h 06/28/18 Levofloxacin [Levaquin 750 mg Tablet] 750 mg PO DAILY #2 tablet 06/28/18 Risperidone [Risperdal 0.25 mg Tablet] 0.25 mg PO BID tablet 06/28/18 History of Present Illness Admission Date/PCP: 06/24/18 12:58 ROBERT HARRIS DO History of Present Illness: YAMILEX BENJAMIN is a 82 year old female who was brought to the ER about 6 days ago by her family because of worsening dementia. They were trying to get placement for her and keeping her in the ER but were unsuccessful. Apparently today she h ad some decline in her mental status and a chest x-ray was ordered and it was thought there was possibly some left lower lobe pneumonia. The patient had not had this sort of a mental status before earlier on her ER stay. She is being admitted for treatment of her pneumonia and her apparent new onset metabolic encephalopathy. Hospital Course Hospital Course: Put her on some Levaquin and she has not displayed any signs of cough, fever, or shortness of breath. She will need to finish a couple more days of Levaquin outside the hospital. She has a bed available at [facility] and see [facility]. They said that they are going to accept her but they cannot do so until tomorrow. Her labs and examination are reassuring and we anticipate transfer to the residential facility tomorrow morning. Physical Exam Vital Signs: Temp Pulse Resp BP Pulse Ox 97.5 F 78 15 148/76 H 100 06/28/18 12:51 06/28/18 12:51 06/28/18 12:51 06/28/18 12:51 06/28/18 12:51 Intake & Output 06/27/18 06/28/18 06/29/18 06:59 06:59 06:59 Intake Total 591 236 Balance 591 236 Weight 45.3 kg 45.4 kg General appearance: PRESENT: cooperative, disheveled, no apparent distress, thin, occasionally will make various kinds of mean comments Respiratory exam: PRESENT: clear to auscultation seth, symmetrical, unlabored. ABSENT: accessory muscle use, crackles, prolonged expiratory phas, rhonchi, tachypnea, wheezes Cardiovascular exam: PRESENT: RRR, +S1, +S2. ABSENT: systolic murmur Pulses: PRESENT: normal carotid pulses Vascular exam: PRESENT: normal capillary refill GI/Abdominal exam: PRESENT: normal bowel sounds, soft. ABSENT: distended, guarding, rebound, tenderness Extremities exam: ABSENT: clubbing, pedal edema Musculoskeletal exam: PRESENT: normal inspection. ABSENT: deformity Neurological exam: PRESENT: awake, oriented to person ABSENT: oriented to place, oriented to situation Psychiatric exam: PRESENT: flat affect Skin exam: PRESENT: dry, warm Results Laboratory Results: 06/27/18 05:30 06/27/18 05:30 Impressions: KUB X-Ray 06/18/18 14:45 IMPRESSION: Nonspecific bowel gas pattern Chest X-Ray 06/23/18 11:52 IMPRESSION: New left lower lobe opacity, possibly atelectasis or infection. Likely small left effusion. Transfer Plan - Time Spent with Patient Time spent with patient: Less than 30 Minutes Qualifiers - * PATIENT BEING DISCHARGED WITH ANY OF THE FOLLOWING DIAGNOSIS: No
[2018-06-29] MEDS: APIXABAN 2.5 MG TABLET PO SCH (11:12)
[2018-06-29] MEDS: LISINOPRIL 5 MG TABLET PO SCH (11:12)
[2018-06-29] MEDS: BUSPIRONE HCL 10 MG TABLET PO SCH (11:12)
[2018-06-29] MEDS: DIVALPROEX SODIUM 250 MG TAB.SR.24H PO SCH (11:12)
[2018-06-29] MEDS: RISPERIDONE 0.25 MG TABLET PO SCH (11:12)
[2018-06-29] MEDS: METOPROLOL SUCCINATE 50 MG TAB.SR.24H PO SCH (11:12)
[2018-06-29 12:48] VITALS: BP 188/66
== END 2018-06-29 14:21 | disposition short-term general hospital (02) | DRG 193 ==
LOC: ER 13:49 → EH 06-24 12:58 → 4N 06-24 15:52
PROVIDERS: ADMIT Internal Medicine; ATTEND Internal Medicine
DX: J18.9 Pneumonia, unspecified organism (principal); G93.41 Metabolic encephalopathy; F02.81 Dementia in other diseases classified elsewhere, unspecified severity, with behavioral disturbance; G30.9 Alzheimer's disease, unspecified; I25.10 Atherosclerotic heart disease of native coronary artery without angina pectoris; E78.5 Hyperlipidemia, unspecified; M19.90 Unspecified osteoarthritis, unspecified site; I73.9 Peripheral vascular disease, unspecified; F32.9 Major depressive disorder, single episode, unspecified; Z90.49 Acquired absence of other specified parts of digestive tract; Z95.5 Presence of coronary angioplasty implant and graft; Z91.012 Allergy to eggs
CPT/HCPCS: 36415; 74018; 80048; 80053; 81001; 82803; 83605; 83735; 85025; 85027; 85610; 87040; J1630; J1956; J2060; J3490; J7030